=== PATIENT | male | born 1950 | race Caucasian/White ===

== ENCOUNTER 2018-09-15 10:41 | Inpatient (IN) ==
[2018-09-15 11:33] LABS: Basophils # (auto) 0.01 K/uL (0-0.2); Basophils % (auto) 0.1 %; Eosinophils # (auto) 0.07 K/uL (0-0.5); Eosinophils % (auto) 0.8 %; Hemoglobin 13.8 g/dL (14.0-18.0); Immature Granulocytes # (auto) 0.03 K/uL (0.00-0.02); Immature Granulocytes % (auto) 0.3 %; Lymphocytes # (auto) 1.22 K/uL (1.2-3.4); Lymphocytes % (auto) 13.8 %; Mean Corpuscular Hgb Conc 34.5 g/dL (32-36); Mean Corpuscular Volume 85.8 fL (80-100); Mean Platelet Volume 10.3 fL (7.4-10.4); Monocytes # (auto) 0.28 K/uL (0.11-0.59); Monocytes % (auto) 3.2 %; Neutrophils # (auto) 7.23 K/uL (1.4-6.5); Neutrophils % (auto) 81.8 %; Platelet Count 233 K/uL (130-400); RDW Standard Deviation 43.7 fL (36.4-46.3); Red Blood Count 4.66 M/uL (4.7-6.1); White Blood Count 8.84 K/uL (4.8-10.8)
--- NOTE | 2018-09-15 11:47 | XRay Report ---
XR chest 1V portable CLINICAL HISTORY: Dyspnea COMPARISON STUDY: No previous studies for comparison. FINDINGS: The heart is normal in size. There is slight elevation of the interstitium. There are right lower lung zone airspace opacities, likely representing pneumonia. Asymmetric edema could appear sim ilar. Clinical and radiographic follow-up is recommended.[ IMPRESSION: 1. Right lower lung zone airspace opacities, likely representing pneumonia. Asymmetric edema could ap pear similar.. Clinical and radiographic follow-up is recommended. Electronically signed by: Jose Ferguson M.D. 09/15/2018 11:45 AM
[2018-09-15 11:50] LABS: INR 1.1 (0.9-1.1); Partial Thromboplastin Time 26.1 Seconds (21.0-31.0); Prothrombin Time 11.2 Seconds (9.0-12.0)
[2018-09-15 11:54] LABS: Albumin Level 2.9 gm/dl (3.4-5.0); BUN Creatinine Ratio 23.7 (10-20); Calcium 8.6 mg/dl (8.5-10.1); Creatinine Clr Calc Pharmacy 65.7 ml/min; Est GFR (Non-African American) 48.3; Potassium 4.2 mmol/L (3.5-5.1)
[2018-09-15 11:56] LABS: Albumin Globulin Ratio 0.8 (0.9-2); Bilirubin,Total 0.7 mg/dl (0.2-1); Globulin 3.7 gm/dl (2.5-4.0); Total Protein 6.6 gm/dl (6.4-8.2)
[2018-09-15] MEDS ORDERED: VANCOMYCIN HCL 2,750 MG in SODIUM CHLORIDE 0.9% 500 ML IV ONE (12:03)
[2018-09-15] MEDS ORDERED: VANCOMYCIN CONSULT ACTIVE PRN (12:03)
[2018-09-15] MEDS ORDERED: CEFEPIME 1,000 MG in SYRINGE 0 ML IV STA (12:03)
[2018-09-15] MEDS ORDERED: FUROSEMIDE 40 MG/4 ML VIAL IV STA (12:06)
[2018-09-15 12:16] LABS: Troponin I 0.284 ng/ml (0-0.045)
[2018-09-15 12:31] LABS: Influenza A virus by PCR Neg for Influ A (Neg); Influenza B virus by PCR Neg for Influ B (Neg)
[2018-09-15] MEDS ORDERED: ASPIRIN CHEW 324 MG PO STA (12:34)
[2018-09-15] MEDS ORDERED: NITROGLYCERIN 2% OINTMENT 30GM TUBE EXT SCH (12:45)
[2018-09-15 13:25] LABS: Appearance Urine Clear (Clear); Bacteria Urine Automated Negative (Negative); Bilirubin Urine Negative (Negative); Cast Urine Automated 0 /lpf (0-5); Color Urine Yellow; Epithelial Cell Urine Auto 0-5 /lpf (0-5); Glucose Urine UA 2+ (Negative); Ketones Urine Negative (Negative); Leukocyte Esterase Urine Negative (Negative); Nitrite Urine Negative (Negative); Protein Urine 2+ (Negative); Specific Gravity Urine 1.011 (1.000-1.030); Urobilinogen Urine Negative (Negative); WBC Urine Automated 0 /hpf (0-5)
[2018-09-15] MEDS ORDERED: INSULIN GLARGINE SOLOSTAR 100 UNITS/ML 3 ML PEN SC STA (13:50)
--- NOTE | 2018-09-15 13:57 | History & Physical Report ---
Date of Service September 15, 2018 Assessment & Plan (1) Acute respiratory failure with hypoxia: This is a 68-year-old male with a PMH of uncontrolled DM II, CKD III, HTN and HLD who presents for progressively worsening shortness of breath and nonproductive cough x 2 weeks and was found to have acute hypoxia and RLL PNA. -Hypoxic at 87% on room air, now 94% on 2L NC -In the setting of RLL PNA, possible CHF with weight gain, BLE edema and BNP of 4854 -Likely a mixed picture of respiratory and cardiac pathology contributing to hypoxia -Continue antibiotic treatment for PNA and IV Lasix for possible CHF -Follow up on 2D echo -Continue supplemental O2 (2) Right lower lobe pneumonia: Non-productive cough, SOB x 2 weeks -Prescribed doxy, levaquin and prednisone as out-patient -Given dose of Cefepime and vanco in ED -Non-toxic appearing, does not meet criteria for sepsis, no recent hospitalizations -Will continue antibiotic treatment for CAP with Rocephin, Azithromycin -No wheezing or rhonci on exam. Discontinuing prednisone (3) Elevated troponin: Initial troponin elevation of 0.284 in setting of possible demand ischemia , PNA, hypoxia, CKD -No chest pain or acute ischemic changes on EKG -2D echo ordered and reviewed. Per cardio, preliminary review of resting 2D TTE with apical inferoseptal hypokinesis. Findings may be secondary to interventricular conduction delay, however, underlying ischemic heart disease is not excluded. Overall left ventricular systolic function is preserved. -Continue trending troponin overnight. Heparin infusion ordered. -Appreciate cardiology involvement -Continue aspirin, statin, and carvedilol (4) HLD (hyperlipidemia): Continue statin (5) CKD (chronic kidney disease), stage III: Cr trending upwards from 1.1 to 1.4 this year, ? new baseline -Cr of 1.47 today with GFR of 48 -Monitor with daily BMP (6) Diabetes mellitus type II, uncontrolled: Poorly controlled with a1c of 13 in March 2018 -Has been on prednisone at home, contributing to elevated BSG of 327 upon arrival -Hold home medications -Glycemic consult ordered for management, medication recommendations upon discharge (7) HTN (hypertension): Slightly elevated in setting of prednisone use -Continue home Lasix, Carvedilol DVT Ppx: Receiving IV heparin Code status: FULL PCP: Linda Dispo: Admitted to telemetry. Plan to return home once medically stable. Patient seen in collaboration with Dr. Miranda. Please see addendum. History of Present Illness Chief Complaint: Shortness of breath, nonproductive cough Primary Care Provider: John Garsia MD This is a 68-year-old male with a PMH of uncontrolled DM II, CKD III, HTN and HLD who presents for progressively worsening shortness of breath and nonproductive cough x 2 weeks. Initially seen in clinic last week and started on doxycycline and prednisone for complicated bronchitis. Return to clinic on a few days later with continued symptoms and chest x-ray revealed patchy bibasilar opacities may reflect pneumonia or edema. Was started on Levaquin, continued on prednisone and started on Lasix 40 mg p.o. daily as needed. Presents to ER today with worsening dyspnea on exertion and nonproductive cough. Patient is afebrile and denies chills. Was found to be hypoxic at 87% on room air (is not on home O2) but saturation improved to 94% on 2 L nasal cannula. Patient feels like there is congestion in his chest but "cannot cough any mucus up". Denies wheezing or hemoptysis. Has been experiencing fatigue, generalized weakness and orthopnea. Also noted swelling of his ankles and feet starting yesterday, so took dose of 40mg PO Lasix in the evening and then again this morning. Denies any chest pain, palpitations or PND. Per chart review, patient has gained approximately 20 lbs since late July. Echo performed in March 2018 with mildly concentric LVH, EF of 55-59% and mildly abnormal diastolic dysfunction (grade 1). Found to have troponin elevation of 0.284. No acute EKG changes. CXR with R lower lung zone airspace opacities likely PNA. Allergies Allergy/AdvReac Type Severity Reaction Status Date / Time No Known Allergies Allergy Unverified 09/15/18 11:22 Home Medications Home Medications Medication Instructions Recorded Confirmed Type aspirin 81 mg PO HS 09/15/18 09/15/18 History atorvastatin 80 mg PO HS 09/15/18 09/15/18 History benzonatate 100 mg PO TID PRN 09/15/18 09/15/18 History carvedilol 6.25 mg PO BIDM 09/15/18 09/15/18 History cholecalciferol (vitamin D3) 2,000 unit PO HS 09/15/18 09/15/18 History doxycycline hyclate 100 mg PO BID 09/15/18 09/15/18 History furosemide 40 mg PO DAILY PRN 09/15/18 09/15/18 History insulin glargine [Lantus U-100 42 unit SUBCUT HS 09/15/18 09/15/18 History Insulin] levofloxacin 750 mg PO HS 09/15/18 09/15/18 History lisinopril-hydrochlorothiazide 1 tab PO HS 09/15/18 09/15/18 History pioglitazone 30 mg PO HS 09/15/18 09/15/18 History prednisone 40 mg PO DAILY 09/15/18 09/15/18 History Past Med/Surg History Medical History HLD (hyperlipidemia) (Chronic) CKD (chronic kidney disease), stage III (Chronic) Diabetes mellitus type II, uncontrolled (Chronic) HTN (hypertension) (Chronic) Surgical History Hx of tonsillectomy (Resolved) Family History Mother Breast cancer Social History Current Living Situation: Spouse current occupational status: retired Other Information That Helps Us Care for You: No Feels Safe at Home: Yes Smoking Status: Never smoker Do You Dip or Chew Tobacco: No Second Hand Exposure: No Tobacco Cessation Education Requested by Patient: No Hx Alcohol Use: Yes Alcohol Intake Frequency: holidays/special occasions only Hx Substance Use: No Beliefs That Will Affect Care: None Preferred Language: Chilean Communication Ability: Effective Press Reader Required: No Review of Systems Constitutional: + fatigue, + weakness and + weight gain; no fever, no chills, no body aches, no malaise and no anorexia Eyes: no diplopia and no worsening vision Ear, Nose, Mouth, Throat: no ear pain, no dizziness, no nasal congestion, no sinus pain/pressure, no sore throat and no dysphagia Respiratory: + cough, + chest congestion and + dyspnea; no hemoptysis and no wheezing Cardiovascular: + orthopnea; no chest pain, no radiating jaw, neck or arm pain, no palpitations, no lightheadedness, no syncope and no edema Gastrointestinal: no abdominal pain, no nausea, no vomiting, no constipation and no diarrhea/loose stools Genitourinary (Male): no dysuria and no hematuria Musculoskeletal: no joint pain and no muscle weakness Integumentary: no rash, no skin ulcer and no change in skin color Neurologic: no gait abnormality, no localized weakness, no paresthesia, no headache(s) and no confusion Psychiatric: no behavioral changes Physical Exam 2 Vital Signs (Past 24 Hours): Last Vital Signs Temp 36.7 C 09/15/18 10:44 Pulse 80 09/15/18 13:29 Resp 17 09/15/18 13:29 BP 168/99 H 09/15/18 13:29 Pulse Ox 94 09/15/18 13:29 Physical Exam: General Appearance: WD/WN, no apparent distress, morbidly obese, appears acutely ill but non-toxic Head: normocephalic, atraumatic Eyes: normal inspection, PERRL, EOMI ENT: hearing grossly normal, pharynx normal (moist mucous membranes) Neck: supple, no JVD, no adenopathy Respiratory/Chest: Decreased breath sounds bilaterally with faint bibasilar crackles. No wheezes or rhonci. No respiratory distress or accessory muscle use Cardiovascular: regular rate, rhythm, no murmur, normal peripheral pulses, 1-2 + bilateral pitting edema to knees Abdomen/GI: normal bowel sounds, soft, non-tender to palpation Extremities/Musculoskelatal: normal inspection, no calf tenderness, normal capillary refill, no pedal edema Neurologic/Psych: alert, normal mood/affect, oriented x 3 Skin: normal color, warm/dry Results & Data Laboratory Results Short CBC 09/15/18 Range/Units 11:20 WBC 8.84 (4.8-10.8) K/uL Hgb 13.8 L (14.0-18.0) g/dL Hct 40.0 L (42-52) % Plt Count 233 (130-400) K/uL BMP 09/15/18 11:20 Sodium 132 L Potassium 4.2 Chloride 95 L Carbon Dioxide 29 BUN 35 H Creatinine 1.47 H Glucose 327 H Calcium 8.6 Cardiac Enzymes 09/15/18 Range/Units 11:20 Troponin I 0.284 H* (0-0.045) ng/ml Liver Function 09/15/18 Range/Units 11:20 Total Bilirubin 0.7 (0.2-1) mg/dl AST 16 (15-37) U/L ALT 35 (12-78) U/L Alkaline Phosphatase 58 (45-117) U/L Albumin 2.9 L (3.4-5.0) gm/dl Urine 09/15/18 Range/Units 13:00 Urine Color Yellow Urine Appearance Clear (Clear) Urine pH 6.0 (4.5-7.5) Ur Specific Grady 1.011 (1.000-1.030) Urine Protein 2+ H (Negative) Urine Glucose (UA) 2+ H (Negative) Diagnostic Findings CXR: IMPRESSION: 1. Right lower lung zone airspace opacities, likely representing pneumonia. Asymmetric edema could appear similar.. Clinical and radiographic follow-up is recommended. ECG Rhythm: sinus rhythm Findings: + 1st degree AV block Change: no significant change Additional Comments: Septal infarct , age undetermined Code Status & VTE Plan Code Status FULL VTE Prophylaxis Plan VTE Prophylaxis will be ordered: Yes Supervising Physician Co-Signing Physician Notes I have seen and examined the patient and have discussed the case with the provider above. I agree with the assessment and plan as stated. Mr. Lorenzo is an uncontrolled diabetic who not only has bibasilar pneumonia, also has an additional component of hypoxia 2/2 significant weight gain likely a combination of excessive eating, recent prednisone use and acute diastolic heart failure. He has coarse rhonchi on lung exam, no JVD, normal heart exam, a large protuberant abdomen, and 2+ pitting edema bilaterally which he says is much improved today after taking two doses of Lasix at home. Agree with plan to cont Lasix for diuresis in addition to abx to treat pneumonia. Mild troponin elevation but risk factors for heart disease including uncontrolled diabetes. Appreciate Cardiology input. DO Ruben
--- NOTE | 2018-09-15 15:34 | Pharmacy Report ---
Glycemic Control Consultation - Date of Service September 15, 2018 - Scope Scope: Glycemic Pharmacist consulted by TANYA López on 09/15/18 for glycemic control and to write orders per [facility] inpatient glycemic control protocol - Objective Weight: 135.3 kg Accuchecks BSG (last 24hrs): 09/15/18 11:20 Glucose 327 H Laboratory Data (last 24hrs): 09/15/18 11:20 Potassium 4.2 Carbon Dioxide 29 Anion Gap 8.0 Creatinine 1.47 H Est Cr Clr Drug Dosing 65.7 Beta-Hydroxybutyric Acd 1.24 - Recent Pertinent Medications Outpatient Anti-diabetic Regimen: * Lantus 42 units qHS * Pioglitazone 30 mg qHS * A1c = 13 % 03/2018 The patient is currently receiving: * Basal insulin: Lantus 34 units x 1 ordered by Parminder Murillo to be given on admission * Correctional Insulin: Novolog Correction per scale ACHS Goal Range: Low 120 mg/dL - High 160 mg/dL Correction Factor: 10 mg/dL/unit * Prandial insulin: Per carb ratio of 1 unit per 4 grams CHO consumed Risk Factors for Insulin Resistance: * Steroids: unknown if these are to be ordered * Infection: pneumonia - Assessment & Plan Assessment & Plan: ASSESSMENT: * 68 y/o male admitted for pneumonia and uncontrolled type 2 diabetes, admitted with BSGs in the 300s. Ivis Murillo has initiated SQ basal/bolus insulin as per insulin calculator recommendations. Will continue with this, providing a scaled dose for tonight's basal insulin. PLAN FOR INPATIENT GLYCEMIC CONTROL: * Holding outpatient oral diabetes medications * Basal insulin * Lantus BID as per the following scale: * Hold for BSG < 120 * 12 units for BSG 120-160 * 23 units for BSG > 160 * Bolus insulin * NovoLog per scale ACHS or Q6hrs while NPO * Goal Range: Low 120 mg/dL - High 160 mg/dL * Correction Factor: 10 mg/dL/unit * Nutritional / Prandial insulin per carb ratio of 1 unit per 4 grams CHO consumed * A1c w/ AM labs to assess recent outpatient control * Please note that the plan above was derived based on current level of insulin resistance and hospital stress. These recommendations are appropriate for inpatient admission only. Plan of care upon discharge will need to be reassessed to avoid potential outpatient hypo/hyperglycemia. Thank you.
[2018-09-15] MEDS ORDERED: POLYETHYLENE (MIRALAX) 17 GM PACK PO PRN (15:35)
[2018-09-15] MEDS ORDERED: GLUCOSE 40% GEL 15 GM TUBE PO PRN (15:35)
[2018-09-15] MEDS ORDERED: NITROGLYCERIN SL 0.4 MG/TAB TAB SL PRN (15:35)
[2018-09-15] MEDS ORDERED: GLUCAGON FOR INJ 1 MG VIAL SQ PRN (15:35)
[2018-09-15] MEDS ORDERED: DEXTROSE 50% 50 ML SYRINGE IV PRN (15:35)
[2018-09-15] MEDS ORDERED: GLUCOSE 10 TABS/TUBE PO PRN (15:35)
[2018-09-15] MEDS ORDERED: ACETAMINOPHEN 325 MG TAB PO PRN (15:35)
[2018-09-15] MEDS ORDERED: ONDANSETRON INJ 2 MG/ML 2 ML VIAL IV PRN (15:35)
[2018-09-15] MEDS ORDERED: BENZONATATE 100 MG CAPSULE PO PRN (15:35)
[2018-09-15] MEDS ORDERED: CARBOHYDRATES FOR HYPOGLYCEMIA PO PRN (15:35)
[2018-09-15] MEDS ORDERED: PHARMACY GLYCEMIC MGMT CONSULT PRN (15:43)
--- NOTE | 2018-09-15 16:15 | Cardiology Consultation ---
Date of Consultation September 15, 2018 Assessment & Plan (1) Elevated troponin: Preliminary review of resting 2D transthoracic echocardiogram demonstrates apical inferoseptal hypokinesis. Findings may be secondary to interventricular conduction delay, however, underlying ischemic heart disease is not excluded. Overall left ventricular systolic function is preserved. Initial troponins are mildly elevated however, these will be trended x3 sets. There is no overt contraindication to anticoagulation. Will place patient on heparin infusion overnight and continue to monitor closely. Repeat ECG in a.m. Further ischemic evaluation will be required. Troponins also may be related to demand ischemia in the setting of underlying coronary disease and community- acquired pneumonia with hypoxia in setting of CKD. Continue aspirin, statin, and carvedilol. Further recommendations as clinical course unfolds. Thank you for allowing me to participate in the care of your patient. (2) Acute diastolic (congestive) heart failure: Edema improving with diuretic therapy. The left ventricular systolic function preserved per echocardiogram. Recommend continue daily IV Lasix. Add topical nitrates for afterload reduction as patient is hypertensive at this time. Continue carvedilol as previously ordered. (3) Right lower lobe pneumonia: Antibiotics, corticosteroids, nebulizer treatments as per direction of internal medicine. Continue supplemental oxygen. (4) Acute respiratory failure with hypoxia: Secondary to pneumonia. (5) CKD (chronic kidney disease), stage III: Baseline creatinine 1.4. Mildly elevated BUN/creatinine on admission likely secondary to oral diuretic therapy taken in the outpatient setting. (6) HTN (hypertension): Mildly elevating resting BP on admission. Exacerbated by corticosteroid therapy. History of Present Illness Reason for Consultation: Elevated troponin. Possible CHF. Requesting Physician: Ivis Murillo PA-C Attending Physician: Conor Duff MD History of Present Illness 60-year-old patient presented to the emergency department secondary to shortness of breath. Patient diagnosed with bilateral pneumonia approximately 1 week ago. Evaluated by his primary care physician on September 11. Due to significant cough patient was prescribed prednisone in addition to levofloxacin. He did not improve and therefore came to the ER for further evaluation. Found to be hypoxic in the ER. ECG demonstrates sinus rhythm with a nonspecific interventricular conduction block. Troponin and proBNP elevated. Patient describes mild lower extremity edema over the past 7 days. Significant dyspnea on exertion without chest discomfort noted. Reports persistent cough which has improved with addition of corticosteroids. Cough is nonproductive. Notes orthopnea without PND. Appetite has been stable. No fever, chills, or sick contacts. Allergies Allergy/AdvReac Type Severity Reaction Status Date / Time No Known Allergies Allergy Unverified 09/15/18 11:22 Home Medications Home Medications Medication Instructions Recorded Confirmed Type aspirin 81 mg PO HS 09/15/18 09/15/18 History atorvastatin 80 mg PO HS 09/15/18 09/15/18 History benzonatate 100 mg PO TID PRN 09/15/18 09/15/18 History carvedilol 6.25 mg PO BIDM 09/15/18 09/15/18 History cholecalciferol (vitamin D3) 2,000 unit PO HS 09/15/18 09/15/18 History doxycycline hyclate 100 mg PO BID 09/15/18 09/15/18 History furosemide 40 mg PO DAILY PRN 09/15/18 09/15/18 History insulin glargine [Lantus U-100 42 unit SUBCUT HS 09/15/18 09/15/18 History Insulin] levofloxacin 750 mg PO HS 09/15/18 09/15/18 History lisinopril-hydrochlorothiazide 1 tab PO HS 09/15/18 09/15/18 History pioglitazone 30 mg PO HS 09/15/18 09/15/18 History prednisone 40 mg PO DAILY 09/15/18 09/15/18 History Patient History Medical History HLD (hyperlipidemia) (Chronic) CKD (chronic kidney disease), stage III (Chronic) Diabetes mellitus type II, uncontrolled (Chronic) HTN (hypertension) (Chronic) Surgical History Hx of tonsillectomy (Resolved) Family History Mother Breast cancer Social History Current Living Situation: Spouse current occupational status: retired Other Information That Helps Us Care for You: No Feels Safe at Home: Yes Smoking Status: Never smoker Do You Dip or Chew Tobacco: No Second Hand Exposure: No Tobacco Cessation Education Requested by Patient: No Hx Alcohol Use: Yes Alcohol Intake Frequency: holidays/special occasions only Hx Substance Use: No Beliefs That Will Affect Care: None Preferred Language: Syrian Communication Ability: Effective Bogger Operator Required: No Review of Systems Pertinent positives noted per HPI, comprehensive 10 system review is otherwise negative. Physical Exam 2 Vital Signs (Past 24 Hours): Last Vital Signs Temp 36.8 C 09/15/18 15:35 Pulse 78 09/15/18 15:35 Resp 18 09/15/18 15:35 BP 158/75 H 09/15/18 15:35 Pulse Ox 95 09/15/18 15:35 Physical Exam: General: NAD, AAO x3, well nourished. Obese. HEENT: Normocephalic. Atraumatic. Conjunctiva pink, no scleral icterus. Neck: No carotid bruits, the carotid upstrokes are brisk. No JVD. No HJR Heart: Regular normal S-1 and S-2 no S-3 or S-4 gallop. No murmurs or rub appreciated. PMI is not displaced. No RV heave. Lungs: Coarse breath sounds at the left base and mid lung pimentel. No rales or wheeze appreciated. Abdomen: Normal bowel sounds. Soft. Nontender. No masses or organomegaly. No abdominal bruits. Extremities: 1+ B/L pretibial edema. No clubbing, or cyanosis. Pulses: radial= 2/4, Dorsalis pedis =2/4, posterior tibial=2/4. Neuro: Cranial nerves grossly intact. No focal motor deficit. Results & Data Laboratory Results Laboratory Results - last 24 hr 09/15/18 09/15/18 09/15/18 11:20 11:20 11:20 WBC 8.84 RBC 4.66 L Hgb 13.8 L Hct 40.0 L MCV 85.8 MCH 29.6 MCHC 34.5 RDW Std Deviation 43.7 RDW Coeff of Saritha 14.0 Plt Count 233 MPV 10.3 Immature Gran % (Auto) 0.3 Neut % (Auto) 81.8 Lymph % (Auto) 13.8 Carson % (Auto) 3.2 Eos % (Auto) 0.8 Baso % (Auto) 0.1 Immature Gran # (Auto) 0.03 H Neut # (Auto) 7.23 H Lymph # (Auto) 1.22 Carson # (Auto) 0.28 Eos # (Auto) 0.07 Baso # (Auto) 0.01 PT 11.2 INR 1.1 APTT 26.1 PTT Ratio 1.0 Sodium 132 L Potassium 4.2 Chloride 95 L Carbon Dioxide 29 Anion Gap 8.0 BUN 35 H Creatinine 1.47 H Est Cr Clr Drug Dosing 65.7 Est GFR ( Amer) 56.0 Est GFR (Non-Af Amer) 48.3 BUN/Creatinine Ratio 23.7 H Glucose 327 H Calcium 8.6 Total Bilirubin 0.7 AST 16 ALT 35 Alkaline Phosphatase 58 Troponin I 0.284 H* NT-Pro-B Natriuret Pep Total Protein 6.6 Albumin 2.9 L Globulin 3.7 Albumin/Globulin Ratio 0.8 L Beta-Hydroxybutyric Acd 1.24 Urine Color Urine Appearance Urine pH Ur Specific Chase Urine Protein Urine Glucose (UA) Urine Ketones Urine Blood Urine Nitrite Urine Bilirubin Urine Urobilinogen Ur Leukocyte Esterase Urine WBC (Auto) Urine RBC (Auto) U Hyaline Cast (Auto) U Epithel Cells (Auto) Urine Bacteria (Auto) Influenza Type A (PCR) Influenza Type B (PCR) 09/15/18 09/15/18 09/15/18 11:20 11:48 13:00 WBC RBC Hgb Hct MCV MCH MCHC RDW Std Deviation RDW Coeff of Saritha Plt Count MPV Immature Gran % (Auto) Neut % (Auto) Lymph % (Auto) Carson % (Auto) Eos % (Auto) Baso % (Auto) Immature Gran # (Auto) Neut # (Auto) Lymph # (Auto) Carson # (Auto) Eos # (Auto) Baso # (Auto) PT INR APTT PTT Ratio Sodium Potassium Chloride Carbon Dioxide Anion Gap BUN Creatinine Est Cr Clr Drug Dosing Est GFR ( Amer) Est GFR (Non-Af Amer) BUN/Creatinine Ratio Glucose Calcium Total Bilirubin AST ALT Alkaline Phosphatase Troponin I NT-Pro-B Natriuret Pep 4854 H Total Protein Albumin Globulin Albumin/Globulin Ratio Beta-Hydroxybutyric Acd Urine Color Yellow Urine Appearance Clear Urine pH 6.0 Ur Specific Chase 1.011 Urine Protein 2+ H Urine Glucose (UA) 2+ H Urine Ketones Negative Urine Blood Trace H Urine Nitrite Negative Urine Bilirubin Negative Urine Urobilinogen Negative Ur Leukocyte Esterase Negative Urine WBC (Auto) 0 Urine RBC (Auto) 0-4 U Hyaline Cast (Auto) 0 U Epithel Cells (Auto) 0-5 Urine Bacteria (Auto) Negative Influenza Type A (PCR) Neg for Influ A Influenza Type B (PCR) Neg for Influ B
--- NOTE | 2018-09-15 16:33 | Emergency Department Note ---
Entered by Richy Gabriel acting as a scribe for History of Present Illness General Chief complaint: Shortness of Breath/Dyspnea Stated complaint: PNEUMONIA Source: patient Limitations: no limitations History of Present Illness Provider complaint: SOB Onset (ago): week(s) Location: chest (SOB/Cough) Pain Consistency: + constant Quality: + other (SOB) Associated symptoms: + cough and + other (LE swelling); no chest pain Treatments prior to arrival: other (Prednisone, Levaquin, Doxycycline, LASIX ) The patient is a 68 year old male who presents to the Emergency Room with complaints of constant shortness of breath that began about 1 week ago. The patient states that he first developed a cough about 1 week ago, and subsequently became short of breath. He did see his primary care office [facility] about 4 days ago who diagnosed him with Pneumonia. He was discharged home with Levaquin, Doxycycline, and Prednisone. The at bedside notes that he was called back two days later and told that he may have new CHF as well, and he was started on Lasix. The patient adds that he has noticed some unusual swelling to his lower extremities, which seemed to be improved by the Lasix. He denies any associated shortness of breath. Home Medications Home Medications Medication Instructions Recorded Confirmed Type aspirin 81 mg PO HS 09/15/18 09/15/18 History atorvastatin 80 mg PO HS 09/15/18 09/15/18 History benzonatate 100 mg PO TID PRN 09/15/18 09/15/18 History carvedilol 6.25 mg PO BIDM 09/15/18 09/15/18 History cholecalciferol (vitamin D3) 2,000 unit PO HS 09/15/18 09/15/18 History doxycycline hyclate 100 mg PO BID 09/15/18 09/15/18 History furosemide 40 mg PO DAILY PRN 09/15/18 09/15/18 History insulin glargine [Lantus U-100 42 unit SUBCUT 09/15/18 09/15/18 History Insulin] levofloxacin 750 mg PO HS 09/15/18 09/15/18 History lisinopril-hydrochlorothiazide 1 tab PO HS 09/15/18 09/15/18 History pioglitazone 30 mg PO HS 09/15/18 09/15/18 History prednisone 40 mg PO DAILY 09/15/18 09/15/18 History Allergies Allergy/AdvReac Type Severity Reaction Status Date / Time No Known Allergies Allergy Unverified 09/15/18 11:22 Past Med/Surg History Medical History HLD (hyperlipidemia) (Chronic) CKD (chronic kidney disease), stage III (Chronic) Diabetes mellitus type II, uncontrolled (Chronic) HTN (hypertension) (Chronic) Surgical History Hx of tonsillectomy (Resolved) Family History Mother Breast cancer Social History Current Living Situation: Spouse current occupational status: retired Other Information That Helps Us Care for You: No Feels Safe at Home: Yes Smoking Status: Never smoker Do You Dip or Chew Tobacco: No Second Hand Exposure: No Tobacco Cessation Education Requested by Patient: No Hx Alcohol Use: Yes Alcohol Intake Frequency: holidays/special occasions only Hx Substance Use: No Beliefs That Will Affect Care: None Preferred Language: Bulgarian Communication Ability: Effective Tour Guide Required: No Review of Systems See HPI for pertinent positives & negatives. and A total of 10 systems reviewed and were otherwise negative Physical Exam Vital Signs Vital Signs - 24 hr 09/15/18 10:44 09/15/18 11:38 09/15/18 11:42 Temperature 36.7 C Temperature Source Oral Sepsis Recent Fever Within 48 Hours No Sepsis New/Unexplained Change in Mental Status No Sepsis Action Taken by Nursing No Action Required Pulse Rate 86 Pulse Rate [Left Finger] Pulse Rhythm [Left Finger] Pulse Strength [Left Finger] Respiratory Rate 22 Respiratory Effort / Characteristics Respiratory Depth Normal Respiratory Pattern Blood Pressure 217/108 H Blood Pressure [Right Arm] Blood Pressure Mean 144 Blood Pressure Mean [Right Arm] Blood Pressure Position [Right Arm] Pulse Oximetry 92 87 L 93 Pulse Oximetry [Right Index Finger] Oxygen Delivery Method Room Air Room Air Nasal Cannula Oxygen Delivery Method [Right Index Finger] Oxygen Flow Rate 2 Oxygen Flow Rate [Right Index Finger] 09/15/18 12:35 09/15/18 13:29 09/15/18 14:24 Temperature Temperature Source Sepsis Recent Fever Within 48 Hours Sepsis New/Unexplained Change in Mental Status Sepsis Action Taken by Nursing Pulse Rate Pulse Rate [Left Finger] 82 80 79 Pulse Rhythm [Left Finger] Pulse Strength [Left Finger] Respiratory Rate 23 17 19 Respiratory Effort / Characteristics Non-Labored Non-Labored Non-Labored Respiratory Depth Normal Normal Normal Respiratory Pattern Regular Regular Regular Blood Pressure Blood Pressure [Right Arm] 148/99 H 168/99 H 164/98 H Blood Pressure Mean Blood Pressure Mean [Right Arm] 115 122 120 Blood Pressure Position [Right Arm] Pulse Oximetry 91 94 95 Pulse Oximetry [Right Index Finger] Oxygen Delivery Method Nasal Cannula Nasal Cannula Nasal Cannula Oxygen Delivery Method [Right Index Finger] Oxygen Flow Rate 2 2 2 Oxygen Flow Rate [Right Index Finger] 09/15/18 14:35 09/15/18 14:38 09/15/18 15:35 Temperature 36.8 C Temperature Source Oral Sepsis Recent Fever Within 48 Hours Sepsis New/Unexplained Change in Mental Status Sepsis Action Taken by Nursing Pulse Rate 81 Pulse Rate [Left Finger] 78 Pulse Rhythm [Left Finger] Regular Pulse Strength [Left Finger] Normal Respiratory Rate 18 18 Respiratory Effort / Characteristics Spontaneous SOB on Exertion Non-Labored Respiratory Depth Normal Normal Respiratory Pattern Regular Regular Blood Pressure 143/86 H Blood Pressure [Right Arm] 158/75 H Blood Pressure Mean Blood Pressure Mean [Right Arm] 102 Blood Pressure Position [Right Arm] Lying Pulse Oximetry 93 Pulse Oximetry [Right Index Finger] 95 Oxygen Delivery Method Nasal Cannula Nasal Cannula Oxygen Delivery Method [Right Index Finger] Nasal Cannula Oxygen Flow Rate 2 2 Oxygen Flow Rate [Right Index Finger] 2 GENERAL: Sitting up in bed, alert, dyspneic with conversation. Persistent cough noted. EYE EXAM: normal conjunctiva. OROPHARYNX: no exudate, no erythema, lips, buccal mucosa, and tongue normal and mucous membranes are moist NECK: supple, no nuchal rigidity, no adenopathy, non-tender LUNGS: Diffuse rhonchi bilaterally. Normal chest wall mechanics. No JVD. HEART: no murmurs, S1 normal and S2 normal ABDOMEN: abdomen soft, non-tender, normo-active bowel, sounds, no masses, no rebound or guarding. BACK: Back is symmetrical on inspection and there is no deformity, no midline tenderness, no CVA tenderness. SKIN: no rashes and no bruising UPPER EXTREMITIES: upper extremities are grossly normal. LOWER EXTREMITIES: Calves are equal bilaterally with pitting edema. NEURO EXAM: Normal sensorium, cranial nerves II-XII grossly intact, normal speech, no gross weakness of arms, no gross weakness of legs. Course ED COURSE: Vital signs were reviewed and showed Hypertensive blood pressure. The patients medical record was reviewed The above diagnostic studies were performed and reviewed. ED treatments and interventions as stated above. 1058: The patient was evaluated in room C5. A complete history and physical examination was performed. 1229: I discussed with Dr. Robins - Cardiology. He suggests treating the symptoms as infection. 1241: I reviewed the patient's case with [facility] . She will evaluate the patient for further management. 1245: Upon reevaluation, the patient is resting in bed. I discussed my findings with the patient and she understands and agrees with the treatment plan. Based on the patients age, coexisting illnesses, exam and lab findings the decision to treat as an inpatient was made. The patient remained stable while under my care. The patient will be evaluated for further management. Administered Medications Discontinued Medications Aspirin (Aspirin) 324 mg PO NOW STA Stop: 09/15/18 12:35 Last Admin: 09/15/18 13:27 Dose: 324 mg Furosemide (Lasix) 40 mg IV NOW STA Stop: 09/15/18 12:07 Last Admin: 09/15/18 12:35 Dose: 40 mg Cefepime HCl 1,000 mg/ Syringe 11.3 mls @ 5.5 mls/min IV NOW STA Stop: 09/15/18 12:05 Last Admin: 09/15/18 12:35 Dose: 5.5 mls/min Vancomycin HCl 2,750 mg/ (Sodium Chloride) 555 mls @ 200 mls/hr IV NOW ONE Stop: 09/15/18 14:49 Last Admin: 09/15/18 12:35 Dose: 200 mls/hr Insulin Glargine (Lantus Solostar Pen) 34 units SC NOW STA Stop: 09/15/18 13:51 Last Admin: 09/15/18 15:55 Dose: 34 units Nitroglycerin (Nitro-Bid 2%) 2 inch EXT Q6H GALO Stop: 10/15/18 12:44 Last Admin: 09/15/18 13:28 Dose: Not Given Medical Decision Making Differential Diagnosis Differential diagnosis: Etiologies such as infections, reactive airway disease, COPD, pneumonia, pleural effusion, pulmonary edema, ARDS, pneumothorax, CHF, cardiac ischemia, cardiac tamponade, dysrhythmia, anemia, pulmonary embolism, musculoskeletal, gastrointestinal process, as well as others were entertained. Medical Records Attestation: I reviewed the patient's medical records. Home Medications Current Medication List: was personally reviewed by me Laboratory Data Attestation: I reviewed the patient's lab results. Result diagrams: 09/15/18 11:20 09/15/18 11:20 Lab Results 09/15/18 09/15/18 09/15/18 Range/Units 11:20 11:20 11:20 WBC 8.84 (4.8-10.8) K/uL RBC 4.66 L (4.7-6.1) M/uL Hgb 13.8 L (14.0-18.0) g/dL Hct 40.0 L (42-52) % MCV 85.8 (80-100) fL MCH 29.6 (25-34) pg MCHC 34.5 (32-36) g/dL RDW Std Deviation 43.7 (36.4-46.3) fL RDW Coeff of Saritha 14.0 (11.5-14.5) % Plt Count 233 (130-400) K/uL MPV 10.3 (7.4-10.4) fL Immature Gran % (Auto) 0.3 % Neut % (Auto) 81.8 % Lymph % (Auto) 13.8 % Worth % (Auto) 3.2 % Eos % (Auto) 0.8 % Baso % (Auto) 0.1 % Immature Gran # (Auto) 0.03 H (0.00-0.02) K/uL Neut # (Auto) 7.23 H (1.4-6.5) K/uL Lymph # (Auto) 1.22 (1.2-3.4) K/uL Worth # (Auto) 0.28 (0.11-0.59) K/uL Eos # (Auto) 0.07 (0-0.5) K/uL Baso # (Auto) 0.01 (0-0.2) K/uL PT 11.2 (9.0-12.0) Seconds INR 1.1 (0.9-1.1) APTT 26.1 (21.0-31.0) Seconds PTT Ratio 1.0 Sodium 132 L (136-145) mmol/L Potassium 4.2 (3.5-5.1) mmol/L Chloride 95 L (98-107) mmol/L Carbon Dioxide 29 (21-32) mmol/L Anion Gap 8.0 (3-11) BUN 35 H (7-18) mg/dl Creatinine 1.47 H (0.6-1.4) mg/dl Est Cr Clr Drug Dosing 65.7 ml/min Est GFR ( Amer) 56.0 Est GFR (Non-Af Amer) 48.3 BUN/Creatinine Ratio 23.7 H (10-20) Glucose 327 H (70-99) mg/dl Calcium 8.6 (8.5-10.1) mg/dl Total Bilirubin 0.7 (0.2-1) mg/dl AST 16 (15-37) U/L ALT 35 (12-78) U/L Alkaline Phosphatase 58 (45-117) U/L Troponin I 0.284 H* (0-0.045) ng/ml NT-Pro-B Natriuret Pep (0-900) pg/ml Total Protein 6.6 (6.4-8.2) gm/dl Albumin 2.9 L (3.4-5.0) gm/dl Globulin 3.7 (2.5-4.0) gm/dl Albumin/Globulin Ratio 0.8 L (0.9-2) Beta-Hydroxybutyric Acd 1.24 (0.2-2.81) mg/dl Urine Color Urine Appearance (Clear) Urine pH (4.5-7.5) Ur Specific [place] (1.000-1.030) Urine Protein (Negative) Urine Glucose (UA) (Negative) Urine Ketones (Negative) Urine Blood (Negative) Urine Nitrite (Negative) Urine Bilirubin (Negative) Urine Urobilinogen (Negative) Ur Leukocyte Esterase (Negative) Urine WBC (Auto) (0-5) /hpf Urine RBC (Auto) (0-4) /hpf U Hyaline Cast (Auto) (0-5) /lpf U Epithel Cells (Auto) (0-5) /lpf Urine Bacteria (Auto) (Negative) Influenza Type A (PCR) (Neg) Influenza Type B (PCR) (Neg) 09/15/18 09/15/18 09/15/18 Range/Units 11:20 11:48 13:00 WBC (4.8-10.8) K/uL RBC (4.7-6.1) M/uL Hgb (14.0-18.0) g/dL Hct (42-52) % MCV (80-100) fL MCH (25-34) pg MCHC (32-36) g/dL RDW Std Deviation (36.4-46.3) fL RDW Coeff of Saritha (11.5-14.5) % Plt Count (130-400) K/uL MPV (7.4-10.4) fL Immature Gran % (Auto) % Neut % (Auto) % Lymph % (Auto) % Worth % (Auto) % Eos % (Auto) % Baso % (Auto) % Immature Gran # (Auto) (0.00-0.02) K/uL Neut # (Auto) (1.4-6.5) K/uL Lymph # (Auto) (1.2-3.4) K/uL Worth # (Auto) (0.11-0.59) K/uL Eos # (Auto) (0-0.5) K/uL Baso # (Auto) (0-0.2) K/uL PT (9.0-12.0) Seconds INR (0.9-1.1) APTT (21.0-31.0) Seconds PTT Ratio Sodium (136-145) mmol/L Potassium (3.5-5.1) mmol/L Chloride (98-107) mmol/L Carbon Dioxide (21-32) mmol/L Anion Gap (3-11) BUN (7-18) mg/dl Creatinine (0.6-1.4) mg/dl Est Cr Clr Drug Dosing ml/min Est GFR ( Amer) Est GFR (Non-Af Amer) BUN/Creatinine Ratio (10-20) Glucose (70-99) mg/dl Calcium (8.5-10.1) mg/dl Total Bilirubin (0.2-1) mg/dl AST (15-37) U/L ALT (12-78) U/L Alkaline Phosphatase (45-117) U/L Troponin I (0-0.045) ng/ml NT-Pro-B Natriuret Pep 4854 H (0-900) pg/ml Total Protein (6.4-8.2) gm/dl Albumin (3.4-5.0) gm/dl Globulin (2.5-4.0) gm/dl Albumin/Globulin Ratio (0.9-2) Beta-Hydroxybutyric Acd (0.2-2.81) mg/dl Urine Color Yellow Urine Appearance Clear (Clear) Urine pH 6.0 (4.5-7.5) Ur Specific [place] 1.011 (1.000-1.030) Urine Protein 2+ H (Negative) Urine Glucose (UA) 2+ H (Negative) Urine Ketones Negative (Negative) Urine Blood Trace H (Negative) Urine Nitrite Negative (Negative) Urine Bilirubin Negative (Negative) Urine Urobilinogen Negative (Negative) Ur Leukocyte Esterase Negative (Negative) Urine WBC (Auto) 0 (0-5) /hpf Urine RBC (Auto) 0-4 (0-4) /hpf U Hyaline Cast (Auto) 0 (0-5) /lpf U Epithel Cells (Auto) 0-5 (0-5) /lpf Urine Bacteria (Auto) Negative (Negative) Influenza Type A (PCR) Neg for Influ A (Neg) Influenza Type B (PCR) Neg for Influ B (Neg) Imaging Data Attestation: I personally reviewed and interpreted this imaging study as follows : Radiologist's Impression: XR chest 1V portable CLINICAL HISTORY: Dyspnea COMPARISON STUDY: No previous studies for comparison. FINDINGS: The heart is normal in size. There is slight elevation of the interstitium. There are right lower lung zone airspace opacities, likely representing pneumonia. Asymmetric edema could appear similar. Clinical and radiographic follow-up is recommended.[ IMPRESSION: 1. Right lower lung zone airspace opacities, likely representing pneumonia. Asymmetric edema could appear similar.. Clinical and radiographic follow-up is recommended. Electronically signed by: Jose Ferguson M.D. 09/15/2018 11:45 AM ECG Data Attestation: I personally reviewed and interpreted this ECG as follows: Indication: SOB/dyspnea Rate (beats per minute): 85 Rhythm: sinus rhythm Findings: + other (ST-wave flattening in the high lateral), + 1st degree AV block, + PAC and + Q waves (Septal) Comparison ECG Date: from (02/26/2008) Change: the following changes noted (Q-waves and ST-flattening are new. ) Blood Pressure Blood Pressure Findings: Elevated blood pressure Blood Pressure Disposition: further management by hospitalist DAVINA Narrative Patient is a 68-year-old male who presents the ER for shortness of breath which is been worsening over the past week associated with swelling in his bilateral lower extremities. He was seen by his PCP placed on doxycycline and Levaquin along with steroids. He was also recently started on Lasix due to swelling. Patient was found to be hypoxic at 87% in the ER. He was placed on 2 L nasal cannula. EKG was obtained and showed new septal Q waves along with some slight elevation in V2 along with depressions in high lateral leads. This was discussed with cardiology who reviewed this EKG along with previous. They recommend to continue current treatment at this time. CBC shows no significant leukocytosis or anemia. INR was unremarkable. White creatinine was 1.4 and BMP was otherwise unremarkable. Troponin was detectable at 0.28. BNP was elevated at 5000. UA was unremarkable. Chest x-ray with infiltrate. Patient was updated at bedside and admitted to the hospitalist following vancomycin and cefepime with the chest x-ray showing the right lower lobe infiltrate. Patient was given aspirin as well. Patient was monitored closely while in the ER did feel better while on nasal cannula. Impression & Plan Pneumonia, Hypoxia, Elevated troponin Discharge Plan Visit Data *Final* Discharge Date/Time: 09/15/18 14:38 Chief Complaint: Shortness of Breath/Dyspnea Stated Complaint: PNEUMONIA ED Provider: Brown Guthrie Discharge Problem: Pneumonia, Hypoxia, Elevated troponin Patient Disposition: Admitted As Inpatient Discharge Instructions Interventions: ED Discharge Assessment Last Done: 09/15/18 14:38 The scribe's documentation has been prepared under my direction and personally reviewed by me in its entirety. I confirm that the note above accurately reflects all work, treatment, procedures, and medical decision making performed by me.
[2018-09-15] MEDS: AZITHROMYCIN 500 MG in DEXTROSE 5% 250 ML IV SCH (17:15)
[2018-09-15] MEDS: CARVEDILOL 6.25 MG TAB PO SCH (17:15)
[2018-09-15] MEDS: INSULIN ASPART 100 UNITS/ML 3 ML PEN SC SCH ×2 (17:17→20:43)
[2018-09-15] MEDS: NITROGLYCERIN 2% OINTMENT 30GM TUBE EXT SCH (17:26)
[2018-09-15] MEDS: HEPARIN STANDARD DEXTROSE 25,000 UNITS/500 ML IV SCH (17:26)
[2018-09-15] MEDS ORDERED: HEPARIN IV BOLUS 8,000 UNITS in SYRINGE 0 ML IV ONE (17:30)
[2018-09-15] MEDS: cefTRIAXone SODIUM 2,000 MG in DEXTROSE 5% 50 ML IV SCH (19:34)
[2018-09-15] MEDS: INSULIN GLARGINE SOLOSTAR 100 UNITS/ML 3 ML PEN SC SCH (20:44)
[2018-09-15] MEDS: ATORVASTATIN 40 MG TAB PO SCH (20:45)
[2018-09-15] MEDS: CHOLECALCIFEROL 1,000 UNITS TAB PO SCH (20:45)
[2018-09-15] MEDS ORDERED: LISINOPRIL/HCTZ 20/25MG 1 TAB PO SCH (21:00)
[2018-09-15 23:54] LABS: Partial Thromboplastin Ratio 4.2
[2018-09-16 00:02] LABS: Partial Thromboplastin Time 109.2 Seconds (21.0-31.0)
[2018-09-16] MEDS: NITROGLYCERIN 2% OINTMENT 30GM TUBE EXT SCH ×4 (00:07→17:23)
[2018-09-16 07:09] LABS: Hematocrit (blood only) 37.8 % (42-52); Hemoglobin 12.9 g/dL (14.0-18.0); Mean Corpuscular Hgb Conc 34.1 g/dL (32-36); Mean Corpuscular Volume 86.1 fL (80-100); Mean Platelet Volume 10.5 fL (7.4-10.4); Platelet Count 221 K/uL (130-400); RDW Coefficient of Variation 14.1 % (11.5-14.5); RDW Standard Deviation 44.1 fL (36.4-46.3); Red Blood Count 4.39 M/uL (4.7-6.1); White Blood Count 9.86 K/uL (4.8-10.8)
[2018-09-16 07:29] LABS: Estimated Average Glucose 217 mg/dl
[2018-09-16 07:32] LABS: Partial Thromboplastin Ratio 2.9
[2018-09-16 07:41] LABS: Partial Thromboplastin Time 76.5 Seconds (21.0-31.0)
[2018-09-16 07:50] LABS: BUN Creatinine Ratio 22.6 (10-20); Calcium 8.4 mg/dl (8.5-10.1); Creatinine Clr Calc Pharmacy 60.7 ml/min; Est GFR (African American) 50.9; Potassium 3.2 mmol/L (3.5-5.1)
[2018-09-16] MEDS: INSULIN ASPART 100 UNITS/ML 3 ML PEN SC SCH ×4 (08:05→21:33)
[2018-09-16] MEDS: CARVEDILOL 6.25 MG TAB PO SCH ×2 (08:07→16:29)
[2018-09-16] MEDS: INSULIN GLARGINE SOLOSTAR 100 UNITS/ML 3 ML PEN SC SCH ×2 (08:07→21:32)
[2018-09-16] MEDS ORDERED: FUROSEMIDE 40 MG in SYRINGE 0 ML IV SCH (09:00)
[2018-09-16] MEDS ORDERED: FUROSEMIDE 40 MG/4 ML VIAL IV SCH (09:00)
[2018-09-16] MEDS ORDERED: POTASSIUM CHLORIDE 10 MEQ TABCR PO STA (10:02)
--- NOTE | 2018-09-16 10:03 | Cardiology Progress Note ---
Date of Service September 16, 2018 Assessment & Plan (1) Elevated troponin: Secondary to demand ischemia in the setting of pneumonia, hypoxia, and decompensated diastolic heart failure. Recent acute coronary syndrome not excluded.continue intravenous heparin, aspirin, statin, and carvedilol as previously ordered. Further ischemic evaluation is indicated. The risks, benefits, alternatives to cardiac catheterization with coronary angiography were discussed with the patient at length. He is agreeable. We will tentatively plan for cardiac catheterization tomorrow pending review of a.m. lab studies. If renal function is at baseline will proceed otherwise may postpone until Friday. Lasix will be placed on hold today. (2) Acute diastolic (congestive) heart failure: Clinically improved. Creatinine trending upward. Will place intravenous Lasix on hold with repeat basic metabolic panel in a.m. (3) Right lower lobe pneumonia: Antibiotics, corticosteroids, nebulizer treatments as per direction of internal medicine. Continue supplemental oxygen. (4) Acute respiratory failure with hypoxia: Secondary to pneumonia. (5) CKD (chronic kidney disease), stage III: Baseline creatinine 1.4. Creatinine trending upward with IV diuretic therapy. Repeat in a.m. (6) HTN (hypertension): Mildly elevating resting BP on admission. Improved today with addition of diuretic therapy and topical nitrates. Exacerbated by corticosteroid therapy. Subjective Patient seen and examined at the bedside. Feeling much better from a respiratory perspective. Orthopnea has resolved. Fluid balance negative approximately 1100 cc. Creatinine trending upward. Nonproductive cough unchanged. Denies palpitations, chest discomfort, lightheadedness, dizziness, syncope, or near syncope. Tolerating medications. Notes mild diuresis after Lasix this a.m. Offers no concerns/complaints at this time. Review of Systems All systems reviewed & are unremarkable except as noted in HPI & below Physical Exam 2 Vital Signs (Past 24 Hours): Last Vital Signs Temp 37.0 C 09/16/18 07:43 Pulse 74 09/16/18 07:43 Resp 20 09/16/18 07:43 BP 129/82 09/16/18 07:43 Pulse Ox 93 09/16/18 07:43 Physical Exam: General: NAD, AAO x3, well nourished. HEENT: Normocephalic. Atraumatic. Conjunctiva pink, no scleral icterus. Neck: No carotid bruits, the carotid upstrokes are brisk. No JVD. No HJR Heart: Regular normal S-1 and S-2 no S-3 or S-4 gallop. No murmurs or rub appreciated. PMI is not displaced. No RV heave. Lungs: Clear bilateral without rales , rhonchi, or wheeze. Abdomen: Normal bowel sounds. Soft. Nontender. No masses or organomegaly. No abdominal bruits. Extremities: No clubbing, cyanosis, or edema. Pulses: radial=2/4, Dorsalis pedis =2/4, posterior tibial=2/4. Neuro: Cranial nerves grossly intact. No focal motor deficit.
[2018-09-16] MEDS: HEPARIN STANDARD DEXTROSE 25,000 UNITS/500 ML IV SCH (10:49)
--- NOTE | 2018-09-16 13:00 | Hospitalist Progress Note ---
Date of Service September 16, 2018 Assessment & Plan (1) Acute respiratory failure with hypoxia: This is a 68-year-old male with a PMH of uncontrolled DM II, CKD III, HTN and HLD who presents for progressively worsening shortness of breath and nonproductive cough x 2 weeks and was found to have acute hypoxia and RLL PNA. -Hypoxic at 87% on room air, now intermittently requiring 2L NC to maintain O2 sat >92% -In the setting of RLL PNA, decompensated diastolic HF -Continue supplemental O2 as needed (2) Elevated troponin: Troponin elevation peaked at 0.379, now down trending with most recent of 0.236 -Demand ischemia in setting of hypoxia, PNA and decompensated diastolic heart failure -No chest pain. Possible lateral ischemic changes on EKG today -Echo (09/15/29) with EF of 55-60%. Mild concentric LVH. Apical inferoseptum is kypokinetic. Mild anteroseptum appears mildly hypokinetic in limited views. -Per cardiology, recent ACS not excluded. Continue IV heparin, aspirin, statin, and carvedilol as previously ordered -Plan for cardiac catheterization tomorrow pending review of a.m. lab studies. If renal function is at baseline will proceed otherwise may postpone until Friday -Lasix will be placed on hold today (3) Right lower lobe pneumonia: Non-productive cough, SOB x 2 weeks -Prescribed doxy, levaquin and prednisone as out-patient -Given dose of Cefepime and vanco in ED -Clinically improving -Will continue antibiotic treatment for CAP with Rocephin, Azithromycin (4) Acute diastolic (congestive) heart failure: Clinically improved today -Net I&Os -1.1L overnight -Will hold Lasix due to up trending creatinine -Continue [employer] diet, daily weights, strict I&Os -Repeat BMP in AM (5) HLD (hyperlipidemia): Continue statin (6) CKD (chronic kidney disease), stage III: Cr of 1.59 today (from 1.47 yesterday) -Hold IV lasix today -Monitor with daily BMP (7) Diabetes mellitus type II, uncontrolled: Repeat a1c of 9.2 today -Hold home medications -Glycemic consult ordered for management, medication recommendations upon discharge (8) HTN (hypertension): Slightly elevated in setting of prednisone use -Continue home Lasix, Carvedilol DVT Ppx: Receiving IV heparin Code status: FULL PCP: Linda Dispo: Admitted to telemetry. Plan to return home once medically stable. Patient seen in collaboration with Dr. Miranda. Please see addendum. Supervising Physician Co-Signing Physician Notes Patient seen in his room. Care coordinated with Ivis Murillo PA-C. Pt feels better. Cough, dyspnea improved. No chest pain. Exam- lungs clear, heart RRR without gallop, extremities 2+ pretibial edema. Unclear whether or not pt had pneumonia- he had a cough, but no fever or leukocytosis. Troponins elevated. Echo showed regional wall motion abnormalities with LVEF 55-60%. Cardiology consulted; cath under consideration. Check BNP and procalcitonin with morning labs. Subjective Seen and examined. Feeling better today. Shortness of breath, orthopnea and lower extremity swelling improved. Saturating at 92% on room air during exam. Denies lightheadedness, chest pain, palpitations or shortness of breath. Fluid balance -1.1 L. Physical Exam 2 Vital Signs (Past 24 Hours): Last Vital Signs Temp 36.5 C 09/16/18 11:16 Pulse 56 L 09/16/18 11:46 Resp 21 09/16/18 11:46 BP 162/50 H 09/16/18 11:46 Pulse Ox 100 09/16/18 11:46 Physical Exam: General Appearance: WD/WN, no apparent distress. Sitting on side of bed, O2 saturation of 92% on room air. Head: normocephalic, atraumatic Eyes: normal inspection, PERRL, EOMI ENT: hearing grossly normal, pharynx normal (moist mucous membranes) Neck: supple, no JVD, no adenopathy Respiratory/Chest: Coarse breath sounds RLL. No wheezes, rales or rhonci. No respiratory distress or accessory muscle use Cardiovascular: regular rate, rhythm, no murmur, normal peripheral pulses, 1+ BLE to knees Abdomen/GI: normal bowel sounds, soft, non-tender to palpation Extremities/Musculoskelatal: normal inspection, no calf tenderness, normal capillary refill, no pedal edema Neurologic/Psych: alert, normal mood/affect, oriented x 3 Skin: normal color, warm/dry Results & Data Laboratory Results Short CBC 09/16/18 Range/Units 06:59 WBC 9.86 (4.8-10.8) K/uL Hgb 12.9 L (14.0-18.0) g/dL Hct 37.8 L (42-52) % Plt Count 221 (130-400) K/uL BMP 09/16/18 06:59 Sodium 137 Potassium 3.2 L D Chloride 98 Carbon Dioxide 32 BUN 36 H Creatinine 1.59 H Glucose 86 Calcium 8.4 L Cardiac Enzymes 09/15/18 09/15/18 09/16/18 Range/Units 17:13 23:15 09:17 Troponin I 0.321 H* 0.379 H* 0.236 H* (0-0.045) ng/ml Urine 09/15/18 Range/Units 13:00 Urine Color Yellow Urine Appearance Clear (Clear) Urine pH 6.0 (4.5-7.5) Ur Specific [place] 1.011 (1.000-1.030) Urine Protein 2+ H (Negative) Urine Glucose (UA) 2+ H (Negative) Diagnostic Findings Echo (09/15/17): EF of 55-60%. Mild concentric LVH. Apical inferoseptum is kypokinetic. Mild anteroseptum appears mildly hypokinetic in limited views. Aortic root is mildly enlarged, 4.3 cm.
[2018-09-16] MEDS ORDERED: POTASSIUM CHLORIDE 20 MEQ TABCR PO ONE (13:43)
--- NOTE | 2018-09-16 13:45 | Pharmacy Report ---
Pharmacy Glycemic Short Note 2 - Date of Service September 16, 2018 - Glycemic Short BSG Results (Last 24 hours): 09/15/18 09/15/18 09/16/18 16:52 20:13 06:59 Glucose 86 POC Glucose 295 H 103 H 09/16/18 09/16/18 07:04 11:15 Glucose POC Glucose 94 102 H OUTPATIENT ANTIDIABETIC REGIMEN: * Lantus 42 units HS, Pioglitazone 30 mg HS * A1c 9.2% 09/16/18 ASSESSMENT: * Patient's A1c improved to 9.2% from 13% in March * Fasting this AM was 94, below goal range- will continue current scale- maximum dose is a 30% reduction from yesterday's dose * Correction last night from 295 to 103 with previous parameters- will loosen PLAN FOR INPATIENT GLYCEMIC CONTROL: * Hold outpatient oral diabetes medications * Basal insulin * Lantus Scale * hold for bsg <110 * 12 units for BSG 110-160 * 23 units for BSG >160 * Bolus insulin - loosen * NovoLog per scale ACHS or Q6hrs while NPO * Goal Range: Low 120 mg/dL - High 160 mg/dL * Correction Factor: 15 mg/dL/unit * Nutritional / Prandial insulin per carb ratio of 1 unit per 5 grams CHO consumed PLAN FOR DISCHARGE: * Patient has history of heart failure and is currently on pioglitazone. Recommend discontinuation of pioglitazone, as TZDs can cause or exacerbate congestive heart failure, and incidence associated pioglitazone is higher in patients receiving concomitant insulin therapy and patient's older than 65. * A1c has improved to 9.2%, patient may benefit from addition of rapid acting insulin with meals/correctional insulin
[2018-09-16 14:26] LABS: Partial Thromboplastin Ratio 2.3
[2018-09-16 14:34] LABS: Partial Thromboplastin Time 60.4 Seconds (21.0-31.0)
[2018-09-16] MEDS: AZITHROMYCIN 500 MG in DEXTROSE 5% 250 ML IV SCH (16:28)
[2018-09-16] MEDS: cefTRIAXone SODIUM 2,000 MG in DEXTROSE 5% 50 ML IV SCH (21:28)
[2018-09-16] MEDS: ASPIRIN 81 MG ECTAB PO SCH (21:30)
[2018-09-16] MEDS: CHOLECALCIFEROL 1,000 UNITS TAB PO SCH (21:31)
[2018-09-16] MEDS: ATORVASTATIN 40 MG TAB PO SCH (21:31)
[2018-09-17] MEDS: NITROGLYCERIN 2% OINTMENT 30GM TUBE EXT SCH ×5 (00:23→23:50)
[2018-09-17] MEDS: HEPARIN STANDARD DEXTROSE 25,000 UNITS/500 ML IV SCH ×2 (04:08→21:57)
[2018-09-17 04:58] LABS: Hematocrit (blood only) 40.7 % (42-52); Hemoglobin 13.6 g/dL (14.0-18.0); Mean Corpuscular Hgb Conc 33.4 g/dL (32-36); Mean Platelet Volume 10.1 fL (7.4-10.4); Platelet Count 229 K/uL (130-400); RDW Coefficient of Variation 14.4 % (11.5-14.5); RDW Standard Deviation 45.6 fL (36.4-46.3); Red Blood Count 4.68 M/uL (4.7-6.1); White Blood Count 7.58 K/uL (4.8-10.8)
[2018-09-17 05:14] LABS: Partial Thromboplastin Ratio 2.3
[2018-09-17 05:22] LABS: Partial Thromboplastin Time 59.7 Seconds (21.0-31.0)
[2018-09-17 05:52] LABS: BUN Creatinine Ratio 24.4 (10-20); Calcium 8.7 mg/dl (8.5-10.1); Creatinine Clr Calc Pharmacy 60.8 ml/min; Est GFR (African American) 52.5; Est GFR (Non-African American) 45.3; Potassium 3.7 mmol/L (3.5-5.1)
[2018-09-17] MEDS: INSULIN ASPART 100 UNITS/ML 3 ML PEN SC SCH ×4 (08:54→20:42)
--- NOTE | 2018-09-17 09:10 | Hospitalist Progress Note ---
Date of Service September 17, 2018 Assessment & Plan (1) Acute respiratory failure with hypoxia: This is a 68-year-old male with a PMH of uncontrolled DM II, CKD III, HTN and HLD who presents for progressively worsening shortness of breath and nonproductive cough x 2 weeks and was found to have acute hypoxia in the setting of decompensated diastolic heart failure and RLL PNA. -Hypoxia has resolved. Now saturating at 97% on room air -In the setting of RLL PNA, decompensated diastolic HF (2) Elevated troponin: Troponin elevation peaked at 0.379, now down trending -Demand ischemia in setting of hypoxia, PNA and decompensated diastolic heart failure -Echo (09/15/29) with EF of 55-60%. Mild concentric LVH. Apical inferoseptum is kypokinetic. Mild anteroseptum appears mildly hypokinetic in limited views. -Per cardiology, recent ACS not excluded. Continue IV heparin, aspirin, statin, and carvedilol as previously ordered -Will hold off on cardiac catheterization today due to kidney function. Planned for tomorrow pending review of BMP (3) Right lower lobe pneumonia: Non-productive cough, SOB resolving -Likely cardiovascular > respiratory pathology contributing to SOB that has now improved -BNP down trending from 4800 to 1100, procalcitonin negative -Discontinued Rocephin but will continue Azithromycin for now (4) Acute diastolic (congestive) heart failure: Clinically improved -Received IV Lasix dose yesterday morning but will hold today due to elevated creatinine -Continue heart health diet, daily weights, strict I&Os -Repeat BMP in AM (5) HLD (hyperlipidemia): Continue statin (6) CKD (chronic kidney disease), stage III: Slightly elevated from baseline with Cr of 1.55 today (baseline ~1.4) -Hold IV lasix today -Monitor with daily BMP (7) Diabetes mellitus type II, uncontrolled: Repeat a1c of 9.2 -Hold home medications -Glycemic consult ordered for management, medication recommendations upon discharge (8) HTN (hypertension): Holding lisinopril/hctz with worsened kidney function -Continue Carvedilol, NTG paste PRN DVT Ppx: Receiving IV heparin Code status: FULL PCP: Linda Dispo: Admitted to telemetry. Plan to return home once medically stable. Patient seen in collaboration with Dr. Duff. Please see addendum. Supervising Physician Co-Signing Physician Notes Patient seen in his room this morning around 0950. Care coordinated with Ivis Murillo PA-C. Pt feels better. Cough, dyspnea improved. No fever. No chest pain. Exam- lungs clear, heart RRR without gallop, extremities 1-2+ pretibial edema. Unclear whether or not pt had pneumonia- he had a cough, but no fever or leukocytosis. Procalcitonin normal. Troponins elevated. BNP elevated. Echo showed regional wall motion abnormalities with LVEF 55-60%. Cardiology consulted. Possible cardiac cath during this hospital stay. Subjective Seen and examined. Feeling better today. No longer experiencing shortness of breath. Not requiring supplemental O2. Saturating at 97% on room air. Denies lightheadedness, chest pain, palpitations or shortness of breath. Still experiencing dry cough. Respiratory: + cough and + dyspnea; no chest congestion, no hemoptysis and no wheezing Physical Exam 2 Vital Signs (Past 24 Hours): Last Vital Signs Temp 36.6 C 09/17/18 06:58 Pulse 64 09/17/18 06:58 Resp 15 09/17/18 06:58 BP 141/78 H 09/17/18 06:58 Pulse Ox 97 09/17/18 06:58 Physical Exam: General Appearance: WD/WN, no apparent distress, pleasant Head: normocephalic, atraumatic Eyes: normal inspection, PERRL, EOMI ENT: hearing grossly normal, pharynx normal (moist mucous membranes) Neck: supple, no JVD, no adenopathy Respiratory/Chest: Coarse breath sounds at R lung base. Otherwise clear. No wheezes, rales or rhonci. No respiratory distress or accessory muscle use Cardiovascular: regular rate, rhythm, no murmur, normal peripheral pulses, trace BLE edema Abdomen/GI: normal bowel sounds, soft, non-tender to palpation Extremities/Musculoskelatal: normal inspection, no calf tenderness, normal capillary refill, no pedal edema Neurologic/Psych: alert, normal mood/affect, oriented x 3 Skin: normal color, warm/dry, Results & Data Laboratory Results Short CBC 09/17/18 Range/Units 04:49 WBC 7.58 (4.8-10.8) K/uL Hgb 13.6 L (14.0-18.0) g/dL Hct 40.7 L (42-52) % Plt Count 229 (130-400) K/uL BMP 09/17/18 04:49 Sodium 137 Potassium 3.7 D Chloride 99 Carbon Dioxide 34 H BUN 38 H Creatinine 1.55 H Glucose 108 H Calcium 8.7 Cardiac Enzymes 09/16/18 Range/Units 09:17 Troponin I 0.236 H* (0-0.045) ng/ml ECG Rhythm: sinus rhythm Findings: + 1st degree AV block and + PAC Change: no significant change
[2018-09-17] MEDS: CARVEDILOL 6.25 MG TAB PO SCH ×2 (09:40→18:46)
[2018-09-17] MEDS: INSULIN GLARGINE SOLOSTAR 100 UNITS/ML 3 ML PEN SC SCH ×2 (09:41→20:43)
--- NOTE | 2018-09-17 10:03 | Cardiology Progress Note ---
Date of Service September 17, 2018 Assessment & Plan (1) Elevated troponin: Secondary to demand ischemia in the setting of pneumonia, hypoxia, and decompensated diastolic heart failure. Recent acute coronary syndrome not excluded. Continue intravenous heparin, aspirin, statin, and carvedilol as previously ordered. Further ischemic evaluation is indicated. The risks, benefits, alternatives to cardiac catheterization with coronary angiography were reviewed. Creatinine remains above baseline today. We will repeat basic metabolic panel in a.m. with consideration for cardiac catheterization prior to discharge. Lasix will remain on hold. (2) Acute diastolic (congestive) heart failure: Clinically improved. Creatinine trending downward. Lasix will remain on hold. Repeat BMP in a.m. (3) Right lower lobe pneumonia: Antibiotics, nebulizer treatments as per direction of internal medicine. Continue supplemental oxygen as needed. (4) Acute respiratory failure with hypoxia: Secondary to pneumonia. (5) CKD (chronic kidney disease), stage III: Baseline creatinine 1.4. Repeat BMP in a.m. (6) HTN (hypertension): Borderline control. Monitor. Subjective Patient seen and examined at the bedside. Continues to improve clinically. Denies chest pain or shortness of breath. Resting comfortably. Intermittent nonproductive cough unchanged. No orthopnea or paroxysmal nocturnal dyspnea. Sinus rhythm with premature ventricular complexes noted on telemetry. Patient offers no new complaints at this time. Review of Systems All systems reviewed & are unremarkable except as noted in HPI & below Physical Exam 2 Vital Signs (Past 24 Hours): Last Vital Signs Temp 36.6 C 09/17/18 06:58 Pulse 60 09/17/18 09:16 Resp 15 09/17/18 06:58 BP 141/78 H 09/17/18 06:58 Pulse Ox 97 09/17/18 06:58 Physical Exam: General: NAD, AAO x3, well nourished. Overweight. HEENT: Normocephalic. Atraumatic. Conjunctiva pink, no scleral icterus. Neck: No carotid bruits, the carotid upstrokes are brisk. No JVD. No HJR Heart: Regular normal S-1 and S-2 no S-3 or S-4 gallop. No murmurs or rub appreciated. PMI is not displaced. No RV heave. Lungs: Clear bilateral without rales , rhonchi, or wheeze. Abdomen: Normal bowel sounds. Soft. Nontender. No masses or organomegaly. No abdominal bruits. Extremities: No clubbing, or cyanosis. Trace to mild bilateral ankle edema. Pulses: radial=2/4, Dorsalis pedis =2/4, posterior tibial=2/4. Neuro: Cranial nerves grossly intact. No focal motor deficit.
--- NOTE | 2018-09-17 13:58 | Pharmacy Report ---
Pharmacy Glycemic Short Note 2 - Date of Service September 17, 2018 - Glycemic Short BSG Results (Last 24 hours): 09/16/18 09/16/18 09/17/18 16:25 20:25 04:49 Glucose 108 H POC Glucose 110 H 132 H 09/17/18 09/17/18 07:03 11:12 Glucose POC Glucose 98 158 H OUTPATIENT ANTIDIABETIC REGIMEN: * Lantus 42 units HS, Pioglitazone 30 mg HS * A1c 9.2% 09/16/18 ASSESSMENT: 09/17 * Patient received 24 units of insulin yesterday: 12 units of lantus, 12 units of novolog * Patients BSGs ranged from 94-132 * Fasting this AM 98, given 12 units per sliding scale last evening * Patient NPO @ midnight for possible cardiac cath procedure- decrease scale for this evening * Post-prandial BSGs well controlled yesterday- continue current CF/CR 09/16 * Patient's A1c improved to 9.2% from 13% in March * Fasting this AM was 94, below goal range- will continue current scale- maximum dose is a 30% reduction from yesterday's dose * Correction last night from 295 to 103 with previous parameters- will loosen PLAN FOR INPATIENT GLYCEMIC CONTROL: * Hold outpatient oral diabetes medications * Basal insulin * Lantus Scale * hold for bsg <110 * 10 units for BSG 110-160 * 15 units for BSG >160 * Bolus insulin - loosen * NovoLog per scale ACHS or Q6hrs while NPO * Goal Range: Low 120 mg/dL - High 160 mg/dL * Correction Factor: 15 mg/dL/unit * Nutritional / Prandial insulin per carb ratio of 1 unit per 6 grams CHO consumed PLAN FOR DISCHARGE: * Patient has history of heart failure and is currently on pioglitazone. Recommend discontinuation of pioglitazone, as TZDs can cause or exacerbate congestive heart failure, and incidence associated pioglitazone is higher in patients receiving concomitant insulin therapy and patient's older than 65. * A1c has improved to 9.2%, patient may benefit from addition of rapid acting insulin with meals/correctional insulin
[2018-09-17] MEDS: AZITHROMYCIN 250 MG TAB PO SCH (16:38)
[2018-09-17] MEDS: ATORVASTATIN 40 MG TAB PO SCH (20:42)
[2018-09-17] MEDS: CHOLECALCIFEROL 1,000 UNITS TAB PO SCH (20:42)
[2018-09-17] MEDS: ASPIRIN 81 MG ECTAB PO SCH (20:42)
[2018-09-18] MEDS: NITROGLYCERIN 2% OINTMENT 30GM TUBE EXT SCH ×2 (05:17→12:12)
[2018-09-18 05:33] LABS: Hematocrit (blood only) 38.5 % (42-52); Hemoglobin 12.8 g/dL (14.0-18.0); Mean Corpuscular Hgb Conc 33.2 g/dL (32-36); Mean Corpuscular Volume 87.9 fL (80-100); Mean Platelet Volume 10.3 fL (7.4-10.4); Platelet Count 209 K/uL (130-400); RDW Standard Deviation 45.4 fL (36.4-46.3); Red Blood Count 4.38 M/uL (4.7-6.1); White Blood Count 6.47 K/uL (4.8-10.8)
[2018-09-18 05:51] LABS: BUN Creatinine Ratio 22.8 (10-20); Calcium 8.5 mg/dl (8.5-10.1); Creatinine Clr Calc Pharmacy 66.9 ml/min; Est GFR (African American) 58.9; Est GFR (Non-African American) 50.8
[2018-09-18 05:54] LABS: Partial Thromboplastin Ratio 2.2
[2018-09-18 06:11] LABS: Partial Thromboplastin Time 58.4 Seconds (21.0-31.0)
[2018-09-18] MEDS: INSULIN ASPART 100 UNITS/ML 3 ML PEN SC SCH ×3 (08:27→16:51)
[2018-09-18] MEDS: INSULIN GLARGINE SOLOSTAR 100 UNITS/ML 3 ML PEN SC SCH (08:28)
--- NOTE | 2018-09-18 09:22 | Cardiology Progress Note ---
Date of Service September 18, 2018 Assessment & Plan (1) Elevated troponin: Secondary to demand ischemia in the setting of pneumonia, hypoxia, and decompensated diastolic heart failure. Recent acute coronary syndrome not excluded. Intravenous heparin placed on hold. Continue aspirin, statin, and carvedilol as previously ordered. The risks, benefits, alternatives to cardiac catheterization with coronary angiography were reviewed. Patient agreeable. He is a TERESA candidate. (2) Acute diastolic (congestive) heart failure: Compensated. Diuretics on hold. Continue carvedilol as previously ordered. (3) Right lower lobe pneumonia: Antibiotics, nebulizer treatments as per direction of internal medicine. Continue supplemental oxygen as needed. (4) Acute respiratory failure with hypoxia: Secondary to pneumonia. (5) CKD (chronic kidney disease), stage III: Creatinine has trended down to baseline. (6) HTN (hypertension): Borderline control with a situational component. Subjective Patient seen and examined at the bedside. Denies CP. SOB and cough improved. Creatinine trending downward. Offers no new complaints. Review of Systems All systems reviewed & are unremarkable except as noted in HPI & below Physical Exam 2 Vital Signs (Past 24 Hours): Last Vital Signs Temp 36.5 C 09/18/18 06:34 Pulse 63 09/18/18 08:46 Resp 18 09/18/18 06:34 BP 164/91 H 09/18/18 06:34 Pulse Ox 92 09/18/18 06:34 Physical Exam: General: NAD, AAO x3, well nourished. Overweight. HEENT: Normocephalic. Atraumatic. Conjunctiva pink, no scleral icterus. Neck: No carotid bruits, the carotid upstrokes are brisk. No JVD. No HJR Heart: Regular normal S-1 and S-2 no S-3 or S-4 gallop. No murmurs or rub appreciated. PMI is not displaced. No RV heave. Lungs: Clear bilateral without rales , rhonchi, or wheeze. Abdomen: Normal bowel sounds. Soft. Nontender. No masses or organomegaly. No abdominal bruits. Extremities: No clubbing, or cyanosis. Trace to mild bilateral ankle edema. Pulses: radial=2/4, Dorsalis pedis =2/4, posterior tibial=2/4. Neuro: Cranial nerves grossly intact. No focal motor deficit.
[2018-09-18] MEDS ORDERED: NiCARDipine HCL INJ 2.5 MG/ML 10 ML AMP ONE (09:36)
[2018-09-18] MEDS ORDERED: MIDAZOLAM HCL 1 MG/ML 2ML VIAL ONE (09:36)
[2018-09-18] MEDS ORDERED: fentaNYL citrate 100 MCG/2 ML VIAL ONE (09:36)
[2018-09-18] MEDS ORDERED: HEPARIN (PORCINE) 1000 UNIT/ML 10 ML (CATH LAB USE ONLY) ONE (09:36)
[2018-09-18] MEDS: CARVEDILOL 6.25 MG TAB PO SCH ×2 (09:41→16:51)
--- NOTE | 2018-09-18 09:51 | Pre Anesthesia Assessment ---
Date of Service September 18, 2018 Pre Sedation Assessment Vital Signs Temp Pulse Pulse Resp BP BP Pulse Ox 09/18/18 08:46 63 09/18/18 06:34 36.5 C 66 18 164/91 H 92 09/18/18 03:40 36.8 C 64 141/88 H 93 09/17/18 23:13 36.6 C 66 20 150/83 H 94 09/17/18 22:20 62 09/17/18 19:21 36.7 C 68 20 171/95 H 96 09/17/18 15:04 66 09/17/18 15:02 36.6 C 67 20 165/92 H 97 09/17/18 11:33 37.0 C 68 24 136/80 93 Cardiovascular + regular rate no murmur + radial pulses present + edema (B/L ankle) Respiratory normal respiratory effort, lungs clear to auscultation Pre-Sedation Airway Assessment Smoking Status: Never smoker Mallampati Class: III Procedure Planning Contraindications for Sedation: none Current Medications Reviewed: Yes Notes The planned sedation has been discussed with the patient. Informed Consent was obtained. I have identified the patient, determined the appropriateness of sedation and have assessed the patient immediately prior to the procedure. All medicine(s) and interventions are by my order.
[2018-09-18] MEDS ORDERED: ADENOSINE IV SOLN 3 MG/ML 20 ML VIAL IV ONE (10:21)
--- NOTE | 2018-09-18 10:25 | Post Anesthesia Assessment ---
Date of Service September 18, 2018 Post Sedation Assessment Vital Signs Temp Pulse Pulse Resp BP BP Pulse Ox 09/18/18 08:46 63 09/18/18 06:34 36.5 C 66 18 164/91 H 92 09/18/18 03:40 36.8 C 64 141/88 H 93 09/17/18 23:13 36.6 C 66 20 150/83 H 94 09/17/18 22:20 62 09/17/18 19:21 36.7 C 68 20 171/95 H 96 09/17/18 15:04 66 09/17/18 15:02 36.6 C 67 20 165/92 H 97 09/17/18 11:33 37.0 C 68 24 136/80 93 Post Sedation Plan On clinical assessment, the patient appears to have tolerated the sedation without complications. Patient is recovering as anticipated. Patient will continue to be monitored by nursing and may be discharged when sedation discharge criteria are met per below protocol. Upon Completions of procedure and additional 15 minutes continue every 5 minute vital signs and the P.A.R. score; then discharge to a Phase I or Fast Track to Phase II per the following guidelines: * Discharge Patient to appropriate Phase II area if PAR is 8 or greater or return to pre- procedure baseline. The post - procedure orders will be as directed. * If PAR score is less than 8 or not return to pre-procedure baseline then patient will follow Phase I monitoring till PAR is reached for Phase II. The Phase I may be done in procedure room or may call to secure a Phase I area. * If naloxone or flumazenil are used for reversal, hold in Phase I for continued monitoring from when last reversal dose was given for a minimum of 60 minutes or longer pending the nurse and/or physician discretion of patient condition before discharge to Phase II. Please call the Sedation Physician to re-evaluate and complete post-note for discharge to Phase II area. Do NOT discharge from procedure sedation or Phase 1 until post- sedation evaluation note is complete by procedure /sedation MD Sedation Discharge Instructions to be given to the patient at discharge to home.
--- NOTE | 2018-09-18 10:41 | Cardiac Catheterization ---
Cardiac Cath Procedure Full Procedure Date September 18, 2018 Pre-Procedure Diagnosis Pre-Procedure Diagnosis: Acute Coronary Syndrome, CHF and Cardiothoracic Symptom AUC Score AUC Score: 8 Post-Procedure Diagnosis Post-Procedure Diagnosis: Severe CAD and Normal Intracardiac Pressures Procedure(s) Performed Procedure(s) Performed: Coronary Angiography and Left Heart Cath Metal Worker Ross Lindquist DO Computer Network Specialist(s) Bessie PLASTER PATTERNMAKER Estimated Blood Loss Estimated Blood Loss: 5cc Medication(s) Medication(s): Fentanyl, Heparin, Lidocaine 1%, Nicardipine, Nitroglycerin and Versed Summary of Findings Severe prox - mid LAD, moderately calcified Moderate ostial Lcx Moderate mid OM Hemodynamics Rest Ao:: 109/62/83 Final Ao: 116/59/88 LV: 124/25/10 Recommendations Recommendations: Management Recommendatons (FFR of Lcx, if not significant, proceed with PCI of LAD. If FFR + will refer for CABG - BROUSSARD LAD, SVG Lcx) Specimens Specimens: None Radiation Exposure (mGy) 1322 Contrast (mls) 80 Fluids (cc crystalloids) Fluids (cc crystalloids): 65 Anesthesia Moderate sedation, Start 0952, End 1020. Sedation monitor. Vasyl Doran RN Procedural Complication(s) None Disposition cardiac catheterization technician for FFR +/- PCI ACC Data: Associate Professor Of Pathology Cardiac Status Clinical evaluation leading to the procedure CAD Presenation: Non STEMI Heart Failure: NYHA Class: CCS III Cardiogenic Shock within 24 Hours: No Cardiac Arrest within 24 Hours: No Imaging Studies Past 6 Months: No Stress Studies Past 6 Months: No STEMI OR Non-STEMI Symptom Onset Date: 09/07/18 Symptom Onset Time: 09:00 Thrombolytics: No Coronary Anatomy Dominant: Right Left Main (% Stenosis): Mid (10% moderate calcification) and Distal (20% taper) LAD (% Stenosis): Ostial (20%) and Proximal ( tandem 50% - 90% at origin of septal pharmaceutical officer, followed by 80%) D1 (% Stenosis): Ostial (70%, small vessel) and Mid (10% diffuse) D2 (% Stenosis): Ostial (70% ostial, small vessel) and Mid (10% diffuse) D3 (% Stenosis): Ostial (80% small vessel), Proximal (80%) and Mid (60-70% diffuse) Circumflex (% Stenosis): Ostial (60% ostial in limted views) and Proximal (20%) OM1 (% Stenosis): Mid (60%) and Distal (20% diffuse) RCA (% Stenosis): Proximal (10%), Mid (10%) and Distal (20%) R PDA (% Stenosis): Mid (10-20% diffuse) and Distal (20-30% diffuse) R PL1 (% Stenosis): Mid (10% diffuse) R PL2 (% Stenosis): Mid (10% diffuse) Diagnostic Physicians Name: Ross Lindquist DO Status: Elective Closure Device Percutaneous Entry Location: Radial Closure Device: Radial Band Recommendations: Management Recommendatons (FFR of Lcx, if not significant, proceed with PCI of LAD. If FFR + will refer for CABG - BROUSSARD LAD, SVG Lcx) Intraprocedure Events Significant Disection: No Perforation: No
--- NOTE | 2018-09-18 11:12 | Post Anesthesia Assessment ---
Date of Service September 18, 2018 Post Sedation Assessment Vital Signs Temp Pulse Pulse Resp BP BP Pulse Ox 09/18/18 08:46 63 09/18/18 06:34 36.5 C 66 18 164/91 H 92 09/18/18 03:40 36.8 C 64 141/88 H 93 09/17/18 23:13 36.6 C 66 20 150/83 H 94 09/17/18 22:20 62 09/17/18 19:21 36.7 C 68 20 171/95 H 96 09/17/18 15:04 66 09/17/18 15:02 36.6 C 67 20 165/92 H 97 09/17/18 11:33 37.0 C 68 24 136/80 93 Recovery Score Activity: Moves 4 extremities Respiration: Deep Breath/Cough Circulation: +/-20% PreAnes Value Consciousness: Fully Awake Oxygen Saturation: O2 needed for >90% Discharge Sedation Level of Care: Fast Track Phase II Post Sedation Plan On clinical assessment, the patient appears to have tolerated the sedation without complications. Patient is recovering as anticipated. Patient will continue to be monitored by nursing and may be discharged when sedation discharge criteria are met per below protocol. Upon Completions of procedure and additional 15 minutes continue every 5 minute vital signs and the P.A.R. score; then discharge to a Phase I or Fast Track to Phase II per the following guidelines: * Discharge Patient to appropriate Phase II area if PAR is 8 or greater or return to pre- procedure baseline. The post - procedure orders will be as directed. * If PAR score is less than 8 or not return to pre-procedure baseline then patient will follow Phase I monitoring till PAR is reached for Phase II. The Phase I may be done in procedure room or may call to secure a Phase I area. * If naloxone or flumazenil are used for reversal, hold in Phase I for continued monitoring from when last reversal dose was given for a minimum of 60 minutes or longer pending the nurse and/or physician discretion of patient condition before discharge to Phase II. Please call the Sedation Physician to re-evaluate and complete post-note for discharge to Phase II area. Do NOT discharge from procedure sedation or Phase 1 until post- sedation evaluation note is complete by procedure /sedation MD Sedation Discharge Instructions to be given to the patient at discharge to home.
--- NOTE | 2018-09-18 11:16 | Cardiac Catheterization ---
Cardiac Cath Procedure Full Procedure Date September 18, 2018 Pre-Procedure Diagnosis Pre-Procedure Diagnosis: Non STEMI AUC Score AUC Score: 8 Post-Procedure Diagnosis Post-Procedure Diagnosis: Severe CAD and Unsuccessful PCI Procedure(s) Performed Procedure(s) Performed: Coronary Angiography, PTCA and Fractional Flow [place] [employer] Fredo Silver MD Coil Strapper(s) Bessie CHIU Estimated Blood Loss Estimated Blood Loss: 5cc Medication(s) Medication(s): Fentanyl, Heparin, Nicardipine, Nitroglycerin and Versed Summary of Findings Indication: NSTEMI, dyspnea Access: 6 Ukrainian right radial artery Catheters: EBU 3.5 guide Findings: For full details of patient's coronary angiography please cath report dictated by Dr. Lindquist. Briefly, patient found to have multi vessel disease including a 90-95 % stenosis involving the mid LAD. Also noted to have moderate ostial circumflex disease. Decision to proceed with FFR of circumflex and possible PCI of mid LAD. -- PCI -- Antithrombotic therapy: Heparin Procedure: Left main cannulated with EBU 3.5 guide Straight FFR wire navigated into distal circumflex IFR 1.0, FFR 0.96 FFR wire removed. Ride Assembly Supervisor 50 wire navigated into distal LAD Attempted to pass 2.5, 2.0, 1.25 balloon across mid LAD segment just before takeoff of small diagonal but unable to pass balloon across lesion. Earlymid LAD segment was dilated with 2.0 and 2.5 balloon but still unable to pass any balloons more distal. Post procedure heavily calcified mid LAD stenosis unchanged, AUSTYN-3 flow distally and patient chest pain-free. Decision to abort procedure and recommend further evaluation by interventional cardiology at a tertiary center for possible atherectomy. Arterial Closure: TR Summary: 1. Moderate, nonobstructive ostial circumflex disease (FFR 0.96). 2. Severe, heavily calcified mid LAD stenosis 3. Unsuccessful PCI of mid LAD due to inability to pass balloons across calcified lesion Recommendations: To PCU for continued monitoring Continue heparin infusion Transfer to tertiary center for evaluation for possible PCI with atherectomy versus bypass surgery. Hemodynamics Rest Ao:: 109/62/83 Final Ao: 155/71/105 LV: 124/10 Recommendations Recommendations: PCI without planned CABG Specimens Specimens: None Radiation Exposure (mGy) 3815 Contrast (mls) 170 Fluids (cc crystalloids) Fluids (cc crystalloids): 90 Drains Drains: Moderate Anesthesia Moderate Procedural Complication(s) None Disposition PCU ACC Data: Reliability Technologist Cardiac Status Clinical evaluation leading to the procedure CAD Presenation: Non STEMI Anginal Classification: CCS III Heart Failure: No Cardiogenic Shock within 24 Hours: No Cardiac Arrest within 24 Hours: No Imaging Studies Past 6 Months: Yes Stress Studies Past 6 Months: No Diagnostic Physicians Name: Fredo Silver MD Status: Elective Closure Device Percutaneous Entry Location: Radial Closure Device: Radial Band Recommendations: PCI without planned CABG PCI Indication: PCI for high risk Non-JOANNA Lesion Segment Name: Mid LAD Culprit Artery: Yes Stenosis Prior to Rx (%): 90 Chronic Total Occlusion: No IVUS: No FFR: No Pre-Procedure AUSTYN Flow: 3 Previously Treated Lesion: No Lesion Complexity: High/C Lesion Length (mm): 20 Thrombus Present: No Bifurcation Lesion: Yes Guidewire Across Lesion: Stenosis Post-Procedure (%): 95 Post-Procedure AUSTYN Flow: 3 Devices(s) Deployed: No Yes Intraprocedure Events Significant Disection: No Perforation: No
[2018-09-18] MEDS ORDERED: SODIUM CHLORIDE 0.9% 1000ML 1,000 ML IV SCH (11:30)
--- NOTE | 2018-09-18 14:19 | Pharmacy Report ---
Pharmacy Glycemic Short Note 2 - Date of Service September 18, 2018 - Glycemic Short BSG Results (Last 24 hours): 09/17/18 09/17/18 09/18/18 16:22 20:41 05:23 Glucose 147 H POC Glucose 163 H 106 H 09/18/18 09/18/18 06:42 11:36 Glucose POC Glucose 150 H 154 H OUTPATIENT ANTIDIABETIC REGIMEN: * Lantus 42 units HS, Pioglitazone 30 mg HS * A1c 9.2% 09/16/18 ASSESSMENT: 09/18: * Patient received 11 units of novolog yesterday and NO basal insulin * Patient made NPO at midnight for procedure, now with diet ordered * Fasting/lunchtime BSGs remain reasonable given lack of basal insulin for 24 hours. Gave 5 units of lantus this morning and will keep a conservative scale on this evening 09/17 * Patient received 24 units of insulin yesterday: 12 units of lantus, 12 units of novolog * Patients BSGs ranged from 94-132 * Fasting this AM 98, given 12 units per sliding scale last evening * Patient NPO @ midnight for possible cardiac cath procedure- decrease scale for this evening * Post-prandial BSGs well controlled yesterday- continue current CF/CR 09/16 * Patient's A1c improved to 9.2% from 13% in March * Fasting this AM was 94, below goal range- will continue current scale- maximum dose is a 30% reduction from yesterday's dose * Correction last night from 295 to 103 with previous parameters- will loosen PLAN FOR INPATIENT GLYCEMIC CONTROL: * Hold outpatient oral diabetes medications * Basal insulin * Lantus Scale * 5 units for bsg <120 * 10 units for BSG 120-180 * 15 units for BSG >180 * Bolus insulin - loosen * NovoLog per scale ACHS or Q6hrs while NPO * Goal Range: Low 120 mg/dL - High 160 mg/dL * Correction Factor: 15 mg/dL/unit * Nutritional / Prandial insulin per carb ratio of 1 unit per 6 grams CHO consumed PLAN FOR DISCHARGE: * Patient has history of heart failure and is currently on pioglitazone. Recommend discontinuation of pioglitazone, as TZDs can cause or exacerbate congestive heart failure, and incidence associated pioglitazone is higher in patients receiving concomitant insulin therapy and patient's older than 65. * A1c has improved to 9.2%, patient may benefit from addition of rapid acting insulin with meals/correctional insulin
[2018-09-18] MEDS: AZITHROMYCIN 250 MG TAB PO SCH (16:51)
--- NOTE | 2018-09-18 17:05 | Hospitalist Progress Note ---
Date of Service September 18, 2018 Assessment & Plan (1) Elevated troponin: Patient presented to the hospital with shortness of breath. Found to be hypoxic as discussed below. Chest x-ray showed right lower lung density, infiltrate versus edema. Multiple risk factors for ischemic heart disease. Serum troponin 0.284 and neda as high as 0.379. EKG demonstrated NSR, nonspecific ST, T-wave abnormalities. Cardiology consulted. Echo demonstrated mild concentric LVH, LVEF 55-60%, hypokinesis of apical inferoseptum and anteroseptum. Received aspirin, IV heparin, carvedilol, lisinopril, statin. Cardiac catheterization performed by Dr. Lindquist. Found to have multivessel disease with a severe proximal-mid LAD lesion, a moderate ostial lesion left circumflex, and a moderate lesion in the mid obtuse marginal. Dr. Silver evaluate the patient for PCI. Found to have heavily calcified mid LAD lesion, unable to pass balloon across the lesion. Transfer to [facility] recommended for further evaluation and management. (2) Acute diastolic (congestive) heart failure: Presented with SOB and hypoxia. Chest x-ray demonstrated right lower lung density, infiltrate vs pulmonary edema. Echo demonstrated mild concentric LVH, LVEF 55-60%, hypokinesis of apical inferoseptum and anteroseptum. BNP elevated. [place] to have acute diastolic left ventricular CHF. Received IV furosemide with improvement. (3) Right lower lobe pneumonia: Experiencing congested cough and SOB at time of admission. O2 sat as low as 87% on RA. No fever or leukocytosis. Chest x-ray demonstrated right lower lung density, infiltrate vs pulmonary edema. Echo demonstrated mild concentric LVH, LVEF 55-60%, hypokinesis of apical inferoseptum and anteroseptum. BNP elevated. Procalcitonin normal. [place] to have acute diastolic left ventricular CHF. Received azithromycin and ceftriaxone. Ceftriaxone discontinued. Continue azithromycin for 1 more day to complete 5 day course. Follow-up chest x-ray to ensure resolution. (4) HTN (hypertension): Receiving carvedilol, lisinopril, HCTZ. Follow and titrate Rx. (5) CKD (chronic kidney disease), stage III: History of CKD III. Serum creatinine 1.47 on day of admission, 1.41 on day of discharge. Follow. (6) Diabetes mellitus type II, uncontrolled: DM type 2, ususally managed with pioglitazone and insulin glargine. Hgb A1C = 9.2. Managed with Lantus + NovoLog per protocol. FBS day of discharge = 150. (7) HLD (hyperlipidemia): LDL-c = 83. Continue atorvastatin. (8) DVT (deep venous thrombosis): Received IV heparin. (9) Discharge planning issues: Arrangements being made for transfer to [facility] for further evaluation and management. Family Medicine follow-up with Dr. Garsia. Subjective Recheck for multiple problems. Patient seen in his room around 1620. Cardiac catheterization performed earlier today by Dr. Lindquist. Found to have multivessel disease with a severe proximal-mid LAD lesion, a moderate ostial lesion left circumflex, and a moderate lesion in the mid obtuse marginal. Dr. Silver evaluate the patient for PCI. Found to have heavily calcified mid LAD lesion, unable to pass balloon across the lesion. Transfer to [facility] recommended for further evaluation and management. Patient feels well. Dyspnea improved. Occasional nonproductive cough. No chest pain or chest pressure. No nausea or vomiting. Physical Exam 2 Vital Signs (Past 24 Hours): Last Vital Signs Temp 36.5 C 09/18/18 16:25 Pulse 69 09/18/18 16:25 Resp 19 09/18/18 16:25 BP 188/100 H 09/18/18 16:25 Pulse Ox 95 09/18/18 16:25 Constitutional: WD/WN, vitals as above no acute distress Respiratory: no respiratory distress Auscultation: + rhonchi (few) Cardiovascular: Rate/Rhythm: regular rate and regular rhythm Heart Sounds: no gallop Vessels: no JVD Extremities: + edema (1+) Gastrointestinal (Abdomen): Inspection/Auscultation: normal bowel sounds Percussion/Palpation: abdomen soft; abdomen nontender Musculoskeletal: Extremities: + upper extremity abnormal to inspection Right ( radial artery cath site without hematoma; capillary refill right hand < 1 sec) Psychiatric: A+Ox3, euthymic affect Results & Data Laboratory Results Laboratory Results - last 24 hr 09/17/18 09/18/18 09/18/18 20:41 05:23 05:23 WBC 6.47 RBC 4.38 L Hgb 12.8 L Hct 38.5 L MCV 87.9 MCH 29.2 MCHC 33.2 RDW Std Deviation 45.4 RDW Coeff of Saritha 14.0 Plt Count 209 MPV 10.3 APTT PTT Ratio Sodium 135 L Potassium 4.0 Chloride 100 Carbon Dioxide 31 Anion Gap 4.0 BUN 32 H Creatinine 1.41 H Est Cr Clr Drug Dosing 66.9 Est GFR ( Amer) 58.9 Est GFR (Non-Af Amer) 50.8 BUN/Creatinine Ratio 22.8 H Glucose 147 H POC Glucose 106 H Calcium 8.5 Triglycerides 173 H Cholesterol 147 LDL Cholesterol, Calc 83 VLDL Cholesterol, Calc 35 HDL Cholesterol 29 Cholesterol/HDL Ratio 5 09/18/18 09/18/18 09/18/18 05:23 06:42 11:36 WBC RBC Hgb Hct MCV MCH MCHC RDW Std Deviation RDW Coeff of Saritha Plt Count MPV APTT 58.4 H* PTT Ratio 2.2 Sodium Potassium Chloride Carbon Dioxide Anion Gap BUN Creatinine Est Cr Clr Drug Dosing Est GFR ( Amer) Est GFR (Non-Af Amer) BUN/Creatinine Ratio Glucose POC Glucose 150 H 154 H Calcium Triglycerides Cholesterol LDL Cholesterol, Calc VLDL Cholesterol, Calc HDL Cholesterol Cholesterol/HDL Ratio 09/18/18 16:29 WBC RBC Hgb Hct MCV MCH MCHC RDW Std Deviation RDW Coeff of Saritha Plt Count MPV APTT PTT Ratio Sodium Potassium Chloride Carbon Dioxide Anion Gap BUN Creatinine Est Cr Clr Drug Dosing Est GFR ( Amer) Est GFR (Non-Af Amer) BUN/Creatinine Ratio Glucose POC Glucose 206 H Calcium Triglycerides Cholesterol LDL Cholesterol, Calc VLDL Cholesterol, Calc HDL Cholesterol Cholesterol/HDL Ratio
--- NOTE | 2018-09-18 17:37 | Discharge Summary ---
Date of Service Date of admission: 09/15/18 Date of discharge: 09/18/18 Admission HPI Per Admitting Provider This is a 68-year-old male with a PMH of uncontrolled DM II, CKD III, HTN and HLD who presents for progressively worsening shortness of breath and nonproductive cough x 2 weeks. Initially seen in clinic last week and started on doxycycline and prednisone for complicated bronchitis. Return to clinic on a few days later with continued symptoms and chest x-ray revealed patchy bibasilar opacities may reflect pneumonia or edema. Was started on Levaquin, continued on prednisone and started on Lasix 40 mg p.o. daily as needed. Presents to ER today with worsening dyspnea on exertion and nonproductive cough. Patient is afebrile and denies chills. Was found to be hypoxic at 87% on room air (is not on home O2) but saturation improved to 94% on 2 L nasal cannula. Patient feels like there is congestion in his chest but "cannot cough any mucus up". Denies wheezing or hemoptysis. Has been experiencing fatigue, generalized weakness and orthopnea. Also noted swelling of his ankles and feet starting yesterday, so took dose of 40mg PO Lasix in the evening and then again this morning. Denies any chest pain, palpitations or PND. Per chart review, patient has gained approximately 20 lbs since late July. Echo performed in March 2018 with mildly concentric LVH, EF of 55-59% and mildly abnormal diastolic dysfunction (grade 1). Found to have troponin elevation of 0.284. No acute EKG changes. CXR with R lower lung zone airspace opacities likely PNA. Admission Exam Per Admitting Provider General Appearance: WD/WN, no apparent distress, pleasant Head: normocephalic, atraumatic Eyes: normal inspection, PERRL, EOMI ENT: hearing grossly normal, pharynx normal (moist mucous membranes) Neck: supple, no JVD, no adenopathy Respiratory/Chest: Coarse breath sounds at R lung base. Otherwise clear. No wheezes, rales or rhonci. No respiratory distress or accessory muscle use Cardiovascular: regular rate, rhythm, no murmur, normal peripheral pulses, trace BLE edema Abdomen/GI: normal bowel sounds, soft, non-tender to palpation Extremities/Musculoskelatal: normal inspection, no calf tenderness, normal capillary refill, no pedal edema Neurologic/Psych: alert, normal mood/affect, oriented x 3 Skin: normal color, warm/dry, Principal Diagnosis non ST elevation myocardial infarction coronary artery disease- calcified proximal - mid LAD stenosis acute diastolic left ventricular congestive heart failure RLL desnity- pneumonia vs pulmonary edema DM type 2 hypertension dyslipidemia Discharge Data Allergies Allergy/AdvReac Type Severity Reaction Status Date / Time No Known Allergies Allergy Unverified 09/15/18 11:22 Consultations 09/15/18 12:44 ED Decision to Admit Stat 09/15/18 15:35 Consult Cardiology Routine Procedures Performed Operation Date: 09/18/18 09:30 Actual Procedures p Cath, Left with Cors and Vent - Sal Silver MD s Cineradiography w/Routine Exam - Ross Lindquist DO s Fraction Flow [place] SGL Ves - Sal Silver MD s POBA SGL Vessel - Sal Silver MD Ordered Studies 09/18/18 09:25 CL Cath Imgs for PACS use only Routine Hospital Course (1) Elevated troponin: Patient presented to the hospital with shortness of breath. Found to be hypoxic as discussed below. Chest x-ray showed right lower lung density, infiltrate versus edema. Multiple risk factors for ischemic heart disease. Serum troponin 0.284 and neda as high as 0.379. EKG demonstrated NSR, nonspecific ST, T-wave abnormalities. Cardiology consulted. Echo demonstrated mild concentric LVH, LVEF 55-60%, hypokinesis of apical inferoseptum and anteroseptum. [place] to have non ST elevation myocardial infarction. Received aspirin, IV heparin, carvedilol, lisinopril, statin. Cardiac catheterization performed by Dr. Lindquist. Found to have multivessel disease with a severe proximal-mid LAD lesion, a moderate ostial lesion left circumflex, and a moderate lesion in the mid obtuse marginal. Dr. Silver evaluate the patient for PCI. Found to have heavily calcified mid LAD lesion, unable to pass balloon across the lesion. Transfer to [facility] recommended for further evaluation and management. (2) Acute diastolic (congestive) heart failure: Presented with SOB and hypoxia. Chest x-ray demonstrated right lower lung density, infiltrate vs pulmonary edema. Echo demonstrated mild concentric LVH, LVEF 55-60%, hypokinesis of apical inferoseptum and anteroseptum. BNP elevated. [place] to have acute diastolic left ventricular CHF. Received IV furosemide with improvement. (3) Right lower lobe pneumonia: Experiencing congested cough and SOB at time of admission. O2 sat as low as 87% on RA. No fever or leukocytosis. Chest x-ray demonstrated right lower lung density, infiltrate vs pulmonary edema. Echo demonstrated mild concentric LVH, LVEF 55-60%, hypokinesis of apical inferoseptum and anteroseptum. BNP elevated. Procalcitonin normal. [place] to have acute diastolic left ventricular CHF. Received azithromycin and ceftriaxone. Ceftriaxone discontinued. Continue azithromycin for 1 more day to complete 5 day course. Follow-up chest x-ray to ensure resolution. (4) HTN (hypertension): Receiving carvedilol, lisinopril, HCTZ. Follow and titrate Rx. (5) CKD (chronic kidney disease), stage III: History of CKD III. Serum creatinine 1.47 on day of admission, 1.41 on day of discharge. Follow. (6) Diabetes mellitus type II, uncontrolled: DM type 2, ususally managed with pioglitazone and insulin glargine. Hgb A1C = 9.2. Managed with Lantus + NovoLog per protocol. FBS day of discharge = 150. (7) HLD (hyperlipidemia): LDL-c = 83. Continue atorvastatin. (8) DVT (deep venous thrombosis): Received IV heparin. (9) Discharge planning issues: Arrangements being made for transfer to [facility] for further evaluation and management. Family Medicine follow-up with Dr. Garsia. Home Medications aspirin 81 mg PO HS 09/15/18 [History Confirmed 09/15/18] atorvastatin 80 mg PO HS 09/15/18 [History Confirmed 09/15/18] benzonatate 100 mg PO TID PRN 09/15/18 [History Confirmed 09/15/18] carvedilol 6.25 mg PO BIDM 09/15/18 [History Confirmed 09/15/18] cholecalciferol (vitamin D3) 2,000 unit PO HS 09/15/18 [History Confirmed ] doxycycline hyclate 100 mg PO BID 09/15/18 [History Confirmed 09/15/18] furosemide 40 mg PO DAILY PRN 09/15/18 [History Confirmed 09/15/18] insulin glargine [Lantus U-100 Insulin] 42 unit SUBCUT 09/15/18 [History Confirmed 09/15/18] levofloxacin 750 mg PO HS 09/15/18 [History Confirmed 09/15/18] lisinopril-hydrochlorothiazide 1 tab PO HS 09/15/18 [History Confirmed 09/15/18] pioglitazone 30 mg PO HS 09/15/18 [History Confirmed 09/15/18] prednisone 40 mg PO DAILY 09/15/18 [History Confirmed 09/15/18] Active Inpatient Medications Acetaminophen (Tylenol) 650 mg PO Q4H PRN PRN Reason: Pain or Fever Stop: 10/15/18 15:34 Aspirin (Ecotrin Ectab) 81 mg PO [facility] Stop: 10/16/18 20:59 Last Admin: 09/17/18 20:42 Dose: 81 mg Atorvastatin Calcium (Lipitor) 80 mg PO [facility] Stop: 10/15/18 20:59 Last Admin: 09/17/18 20:42 Dose: 80 mg Azithromycin (Zithromax) 500 mg PO DAILY@1600 [facility]; Protocol Stop: 09/22/18 15:59 Last Admin: 09/18/18 16:51 Dose: 500 mg Benzonatate (Tessalon Perle) 100 mg PO TID PRN PRN Reason: Cough Stop: 10/15/18 15:34 [facility]il[facility] (Coreg) [facility] Stop: 10/15/18 16:59 Last Admin: 09/18/18 16:51 Dose: 6.25 mg Dextrose (Dextrose 50%) 25 - 50 ml IV UD PRN; Protocol PRN Reason: Hypoglycemia Protocol Stop: 10/15/18 15:34 Glucagon (Glucagen) 1 mg SQ UD PRN; Protocol PRN Reason: Hypoglycemia Protocol Stop: 10/15/18 15:34 Glucose (Dex4 Glucose) 4 - 8 tabs PO UD PRN; Protocol PRN Reason: Hypoglycemia Protocol Stop: 10/15/18 15:34 Glucose (Glucose 40%) 15 - 30 gm PO UD PRN; Protocol PRN Reason: Hypoglycemia Protocol Stop: 10/15/18 15:34 Lisinopril/HCTZ (Prinzide 20/25mg) 1 tab PO [facility] Stop: 10/15/18 20:59 Last Admin: 01/29/19 20:45 Dose: 1 tab Furosemide 40 mg/ Syringe 4 mls @ 4 mls/min IV DAILY [facility] Stop: 10/16/18 08:59 Last Admin: 09/16/18 08:06 Dose: 4 mls/min Heparin Sodium/Dextrose (Heparin Sodium/Dextrose) 25,000 units in 500 mls @ 27 mls/hr IV .Q16H8M [facility]; Protocol Stop: 10/15/18 17:29 Last Titration: 09/18/18 06:55 Dose: 1,350 units/hr, 27 mls/hr Insulin Aspart (Novolog Flexpen) 0 units SC ACHS [facility]; Protocol Stop: 10/15/18 16:29 Last Admin: 09/18/18 16:51 Dose: 12 units Insulin Glargine (Lantus Solostar Pen) 0 units SC BID [facility]; Protocol Stop: 10/15/18 21:59 Last Admin: 09/18/18 08:28 Dose: 5 units Miscellaneous (Carbohydrates For Hypoglycemia) 15 - 30 gm PO UD PRN PRN Reason: Hypoglycemia Treatment Stop: 10/15/18 15:34 Miscellaneous Information (Consult Glycemic Management Pharmacy) 1 ea N/A UD PRN PRN Reason: Consult Stop: 10/15/18 15:42 Nitroglycerin (Nitrostat) 0.4 mg SL UD PRN PRN Reason: Chest Pain Stop: 10/15/18 15:34 Nitroglycerin (Nitro-Bid 2%) 0.5 inch EXT Q6H [facility] Stop: 10/15/18 17:14 Last Admin: 09/18/18 12:12 Dose: 0.5 inch Ondansetron HCl (Zofran) 4 mg IV Q6H PRN PRN Reason: Nausea Stop: 10/15/18 15:34 Polyethylene Glycol (Miralax Powder Packet) 17 gm PO DAILY PRN PRN Reason: Constipation Stop: 10/15/18 15:34 Vitamin D (Vitamin D3) 2,000 units PO HS [facility] Stop: 10/15/18 20:59 Last Admin: 09/17/18 20:42 Dose: 2,000 units Total Time Total Time Spent Total Time Spent (In Minutes): 50 Discharge Plan Discharge Items Patient Disposition: Transfer Acute Care Hospital Reason For Visit: elevated troponin, hypoxia Discharge Diagnosis: ischemic heart disease, high-grade LAD stenosis acute diastolic CHF possible RLL pneumonia Condition: Fair Discharge Goals: Improve disease control Activity: As commented below Activity Comment: To be determined at time of discharge. Non-emergency contact: Primary Care Provider, Hospitalist and Early Childhood Worker Call non-emergency contact if: you have any medication questions and your symptoms worsen Follow-up/Referrals: Ross Lindquist DO [Early Childhood Worker] - John Garsia MD [Primary Care Provider] - Diet: Carb Consistent or DM2 and Heart Healthy Addtl Provider Instructions: Thank you for receiving this patient in transfer. Please call or TigerText if you have any questions. Conor Duff Prescriptions: Discontinued furosemide 40 mg tablet 40 mg PO DAILY PRN (Reason: Fluid Retention) RF: 0 atorvastatin 80 mg tablet 80 mg PO HS RF: 0 carvedilol 6.25 mg tablet 6.25 mg PO BIDM RF: 0 doxycycline hyclate 100 mg capsule 100 mg PO BID RF: 0 insulin glargine [Lantus U-100 Insulin] 100 unit/mL solution 42 unit subcut HS RF: 0 prednisone 20 mg tablet 40 mg PO DAILY RF: 0 aspirin 81 mg Tablet,Delayed Release (Dr/Ec) 81 mg PO HS RF: 0 benzonatate 100 mg capsule 100 mg PO TID PRN (Reason: Cough) RF: 0 lisinopril-hydrochlorothiazide 20-25 mg tablet 1 tab PO HS RF: 0 levofloxacin 750 mg tablet 750 mg PO HS RF: 0 pioglitazone 30 mg tablet 30 mg PO HS RF: 0 cholecalciferol (vitamin D3) 2,000 unit capsule 2,000 unit PO HS RF: 0 Stand-Alone Forms: My [facility] Admission Data Admit Date/Time: 09/15/18 13:41 Attending Provider: Conor Duff Admit Provider: Amisha Miranda Primary Care Provider: John Garsia Other Providers: Amisha Miranda ; Ross Lindquist Service: Telemetry Other Interventions: Discharge Summary Assessment (RN) Last Done: 09/18/18 16:25
== END 2018-09-18 19:13 | disposition short-term general hospital (02) | DRG 250 ==
LOC: ED 10:41 → 2E 13:41
DX: N18.3 Chronic kidney disease, stage 3 (moderate); T38.0X5A Adverse effect of glucocorticoids and synthetic analogues, initial encounter; I21.4 Non-ST elevation (NSTEMI) myocardial infarction; I50.31 Acute diastolic (congestive) heart failure; Z51.81 Encounter for therapeutic drug level monitoring; Z80.3 Family history of malignant neoplasm of breast; E78.5 Hyperlipidemia, unspecified; Z68.41 Body mass index [BMI] 40.0-44.9, adult; E11.22 Type 2 diabetes mellitus with diabetic chronic kidney disease; I25.10 Atherosclerotic heart disease of native coronary artery without angina pectoris; E66.3 Overweight; E11.65 Type 2 diabetes mellitus with hyperglycemia; J96.01 Acute respiratory failure with hypoxia; Z79.82 Long term (current) use of aspirin; J18.9 Pneumonia, unspecified organism; Z79.899 Other long term (current) drug therapy; I13.0 Hypertensive heart and chronic kidney disease with heart failure and stage 1 through stage 4 chronic kidney disease, or unspecified chronic kidney disease

== ENCOUNTER 2019-02-01 15:02 | Inpatient (IN) ==
--- OUTSIDE RECORDS SUMMARY | 2019-02-01 15:06 | External Medical Summary | Continuity of Care Document ---
:1950 Author Name Chris Torres Address Unavailable Unavailable , Care Team Providers Name Role Phone Nadeem Torres Unavailable [email or web address], A Unavailable Unavailable Problems Active medical history not documented Allergies and Adverse Reactions Allergy history not documented Medications Medications not documented Procedures Procedures not documented Immunizations Immunizations not documented Plan of Treatment Planned Observations Planned Goals not documented Results No Known Results Results not documented
[2019-02-01 15:49] LABS: iSTAT Creatinine 1.5 mg/dl (0.6-1.3); iSTAT Hemoglobin 15.6 g/dl (14.0-18.0); iSTAT Ionized Calcium 1.14 mmol/l (1.12-1.32); iSTAT Potassium 3.9 mEq/L (3.3-5.0)
[2019-02-01 15:55] LABS: Partial Thromboplastin Time 27.4 Seconds (21.0-31.0); Prothrombin Time 10.5 Seconds (9.0-12.0)
[2019-02-01 15:56] LABS: Albumin Level 3.3 gm/dl (3.4-5.0); BUN Creatinine Ratio 16.5 (10-20); Calcium 8.7 mg/dl (8.5-10.1); Creatinine Clr Calc Pharmacy 57.4 ml/min; Est GFR (African American) 50.2; Est GFR (Non-African American) 43.3; Potassium 3.9 mmol/L (3.5-5.1)
[2019-02-01 15:59] LABS: Albumin Globulin Ratio 0.8 (0.9-2); Bilirubin,Total 1.3 mg/dl (0.2-1); Total Protein 7.3 gm/dl (6.4-8.2)
--- NOTE | 2019-02-01 16:00 | XRay Report ---
XR chest 1V portable CLINICAL HISTORY: Chest pain. COMPARISON STUDY: Chest radiograph September 15, 2018. FINDINGS: Lung volumes are normal. There is no pneumothorax or pleural effusion. There is no consolid ation or evidence for pulmonary edema. There is mild cardiomegaly. IMPRESSION: 1. No acute cardiopulmonary findings. 2. Mild cardiomegaly. Electronically signed by: Chepe Cherry M.D. 02/01/2019 3:58 PM
[2019-02-01] MEDS ORDERED: ASPIRIN 81 MG CHEW PO STA (16:02)
[2019-02-01 16:03] LABS: Basophils # (auto) 0.03 K/uL (0-0.2); Basophils % (auto) 0.3 %; Eosinophils # (auto) 0.04 K/uL (0-0.5); Eosinophils % (auto) 0.4 %; Hematocrit (blood only) 41.5 % (42-52); Hemoglobin 14.4 g/dL (14.0-18.0); Immature Granulocytes # (auto) 0.03 K/uL (0.00-0.02); Immature Granulocytes % (auto) 0.3 %; Lymphocytes # (auto) 1.54 K/uL (1.2-3.4); Mean Corpuscular Hgb Conc 34.7 g/dL (32-36); Mean Corpuscular Volume 85.9 fL (80-100); Mean Platelet Volume 10.7 fL (7.4-10.4); Monocytes # (auto) 1.17 K/uL (0.11-0.59); Monocytes % (auto) 12.2 %; Neutrophils % (auto) 70.8 %; Platelet Count 178 K/uL (130-400); RDW Coefficient of Variation 13.5 % (11.5-14.5); RDW Standard Deviation 42.6 fL (36.4-46.3); Red Blood Count 4.83 M/uL (4.7-6.1); White Blood Count 9.61 K/uL (4.8-10.8)
[2019-02-01] MEDS ORDERED: Heparin BOLUS **ED Use Only IV STA (16:09)
[2019-02-01] MEDS: Heparin Adult STANDARD Wt-Based Dextrose 5% 25,000 units/500 mL IV SCH (16:28)
--- NOTE | 2019-02-01 17:46 | History & Physical Report ---
Date of Service February 01, 2019 Assessment & Plan (1) ST elevation (STEMI) myocardial infarction involving left anterior desc ending coronary artery: This is a 68-year-old male with a PMH of recent NSTEMI in Sep 2018 s/p stent, DM II, chronic diastolic heart failure, HLD, obesity and other medical problems listed below who presents with hypotension and was found to have had a STEMI involving the LAD. -Had L arm and chest pain Friday-this morning. Did not take ntg or come to hospital until today. Is currently asymptomatic -EKG with ST elevations in anterior leads, initial POC troponin of 26 -Stat bedside echo performed, revealing new apical akinesis, consistent with LAD territory infarction. EF: 40-45% -Initiated on IV heparin, plan to continue for 48 hours -Management per cardiology. No urgent indication for cardiac catheterization at this time due to late presentation of IN -We will plan to transition from Plavix to Brilinta. Continue carvedilol and lisinopril (2) Diabetes mellitus type II, uncontrolled: A1c of 8.9 in September 2018. Will repeat -Continue home lantus -SSI while in-patient -BSG AC HS (3) HTN (hypertension): Hypotensive initially but now normotensive -Continue Coreg, Lisinopril -Hold Lasix and amlodipine for now (4) CKD (chronic kidney disease), stage III: Cr of 1.61 currently (baseline ~1.4) -Hold lasix while creatinine elevated -Continue to monitor (5) Dyslipidemia, goal LDL below 70: Continue high dose statin DVT Ppx: Continue IV heparin Code status: DNR per discussion with patient PCP: Sun Dispo: Admitted to telemetry. Plan to return home once medically stable. Patient seen in collaboration with Dr. Ramos. Please see addendum. History of Present Illness Chief Complaint: Hypotension, sent by [facility] home nurse Primary Care Provider: John Garsia MD This is a 68-year-old male with a PMH of recent NSTEMI in Sep 2018 s/p stent, DM II, chronic diastolic heart failure, HLD, obesity and other medical problems listed below who presents with hypotension. Started to have left arm pain on Friday that moved to his chest on Friday. Was associated with shortness of breath but denies diaphoresis, nausea or vomiting. Had a decreased appetite for the past 3 days. Yesterday and today pain moved to neck and in between shoulder blades. Patient is a [facility] at home patient and had a routine visit today. Patient mentioned pain and was also found to be hypotensive with BP of 80s/50s. Sent to ED for further evaluation. Found to be hemodynamically stable. However, initial POC troponin elevated at 26. EKG with evidence of ST changes to anterolateral leads. Stat echo performed at bedside, report pending. Patient currently asymptomatic. Denies chest pain or shoulder pain. Denies fever, chills, headache, lightheadedness, cough, chest pain, palpitations, shortness of breath, abdominal pain, nausea, vomiting, dysuria, constipation or diarrhea. Allergies Allergy/AdvReac Type Severity Reaction Status Date / Time No Known Allergies Allergy Unverified 09/15/18 11:22 Home Medications Home Medications Medication Instructions Recorded Confirmed Type amlodipine [Norvasc] 2.5 mg PO DAILY 02/01/19 02/01/19 History aspirin [Aspir-Low] 81 mg PO DAILY 02/01/19 02/01/19 History atorvastatin [Lipitor] 80 mg PO QPM 02/01/19 02/01/19 History carvedilol [Coreg] 12.5 mg PO BID 02/01/19 02/01/19 History cholecalciferol (vitamin D3) 2,000 unit PO DAILY 02/01/19 02/01/19 History [Vitamin D3] clopidogrel [Plavix] 75 mg PO DAILY 02/01/19 02/01/19 History empagliflozin [Jardiance] 10 mg PO DAILY 02/01/19 02/01/19 History furosemide [Lasix] 40 mg PO DAILY 02/01/19 02/01/19 History insulin glargine [Lantus U-100 40 unit SUBCUT QPM 02/01/19 02/01/19 History Insulin] lisinopril [Zestril] 20 mg PO DAILY 02/01/19 02/01/19 History nitroglycerin [Nitrostat] 0.4 mg SUBLINGUAL UD PRN 02/01/19 02/01/19 History Past Med/Surg History Medical History Dyslipidemia, goal LDL below 70 (Chronic) CKD (chronic kidney disease), stage III (Chronic) Diabetes mellitus type II, uncontrolled (Chronic) HTN (hypertension) (Chronic) CAD (coronary artery disease) (Chronic) s/p stent to LAD in Sep 2018 at [facility] [place] NSTEMI (non-ST elevated myocardial infarction) (Resolved) Surgical History Stented coronary artery (Chronic) Hx of tonsillectomy (Resolved) Family History Mother Breast cancer Other Stroke Social History Preferred Language: Singaporean Communication Ability: Effective Beliefs That Will Affect Care: None Current Living Situation: Spouse current occupational status: retired Other Information That Helps Us Care for You: No Feels Safe at Home: Yes Safety Concerns: Feels Safe At This Time Smoking Status: Never smoker Second Hand Exposure: No Hx Alcohol Use: No Hx Substance Use: No Review of Systems Review of Systems: At least ten systems reviewed and negative except as noted in the HPI. Physical Exam Physical Exam: General Appearance: WD/WN, no apparent distress, morbidly obese Head: normocephalic, atraumatic Eyes: normal inspection, PERRL, EOMI ENT: hearing grossly normal, pharynx normal (moist mucous membranes) Neck: supple, no JVD, no adenopathy Respiratory/Chest: lungs clear to auscultation. No wheezes, rales or rhonci. No respiratory distress or accessory muscle use Cardiovascular: regular rate, rhythm, no murmur appreciated, normal peripheral pulses, no lower extremity edema Abdomen/GI: normal bowel sounds, soft, non-tender to palpation Extremities/Musculoskelatal: normal inspection, no calf tenderness, normal capillary refill Neurologic/Psych: alert, normal mood/affect, oriented x 3 Skin: normal color, warm/dry Results & Data Vital Signs (Past 12 Hours) Vital Signs Temp Pulse Pulse Resp BP BP Pulse Ox 02/01/19 17:00 60 19 142/75 H 94 02/01/19 16:47 61 64 17 112/74 112/74 95 02/01/19 15:55 64 20 114/73 97 02/01/19 15:29 64 22 136/79 94 02/01/19 15:05 36.8 C 66 18 123/76 96 Laboratory Results Short CBC 02/01/19 Range/Units 15:29 WBC 9.61 (4.8-10.8) K/uL Hgb 14.4 (14.0-18.0) g/dL Hct 41.5 L (42-52) % Plt Count 178 (130-400) K/uL BMP 02/01/19 15:29 Sodium 135 L Potassium 3.9 Chloride 100 Carbon Dioxide 29 BUN 27 H Creatinine 1.61 H Glucose 189 H Calcium 8.7 Liver Function 02/01/19 Range/Units 15:29 Total Bilirubin 1.3 H (0.2-1) mg/dl AST 99 H (15-37) U/L ALT 43 (12-78) U/L Alkaline Phosphatase 67 (45-117) U/L Albumin 3.3 L (3.4-5.0) gm/dl Diagnostic Findings CXR: IMPRESSION: 1. No acute cardiopulmonary findings. 2. Mild cardiomegaly. ECG Findings: + nonspecific-ST abn Supervising Physician Co-Signing Physician Notes Attending addendum: Patient seen and examined care coordinated with Ivis Murillo PA-C This is a 68-year-old male with complex cardiac history of recent non-ST elevated IN in September 2018, status post stent placement, type 2 diabetes, chronic diastolic heart failure -Presented with complaint of left arm/chest pain 3 days ago EKG in ER showed ST elevation in anterior leads with [id number] troponin 26 Patient was chest pain-free during time of interview Started with IV heparin Evaluated by cardiology: Presentation of ST elevated IN Medical management only Admit to telemetry, Continue all cardiac meds, transition Plavix to Brilinta Echo shows new apical akinesis consistent with LAD territory infarction, EF 40- 45% Please refer to further documentation by Ivis Murillo PA-C for discussion of other chronic issues Kallie Ramos MD
[2019-02-01] MEDS ORDERED: GLUCAGON FOR INJ 1 MG VIAL SQ PRN (17:48)
[2019-02-01] MEDS ORDERED: GLUCOSE 40% GEL 15 GM TUBE PO PRN (17:48)
[2019-02-01] MEDS ORDERED: GLUCOSE 10 TABS/TUBE PO PRN (17:48)
[2019-02-01] MEDS ORDERED: CARBOHYDRATES FOR HYPOGLYCEMIA PO PRN (17:48)
[2019-02-01] MEDS ORDERED: POLYETHYLENE (MIRALAX) 17 GM PACK PO PRN (17:48)
[2019-02-01] MEDS ORDERED: NITROGLYCERIN SL 0.4 MG/TAB TAB SL PRN ×2 (17:48)
[2019-02-01] MEDS ORDERED: MAGNESIUM HYDROXIDE SUSP 30 ML UDC PO PRN (17:48)
[2019-02-01] MEDS ORDERED: DEXTROSE 50% 50 ML SYRINGE IV PRN (17:48)
[2019-02-01] MEDS ORDERED: ACETAMINOPHEN 325 MG TAB PO PRN (17:48)
[2019-02-01] MEDS ORDERED: ALUMINUM/MAGNESIUM SUSP 30 ML UDC PO PRN (17:48)
--- NOTE | 2019-02-01 18:25 | Cardiology Consultation ---
Date of Consultation February 01, 2019 Assessment & Plan (1) ST elevation (STEMI) myocardial infarction involving left anterior descending coronary artery: Per history, patient presents the emergency department nearly 48 hours after incident event[address] elevation on ECG likely represent aneurysmal formation involving the left ventricular apex confirmed by dyskinesis of apical segments on 2D transthoracic echocardiogram. Currently pain-free. Recommend intravenous heparin for 48 hours. Will transition from Plavix to Brilinta due to presumed Plavix failure at this time. Agree with titration of carvedilol as tolerated. Will resume lisinopril in a.m. if blood pressure remains stable. Due to late presentation of myocardial infarction there is no urgent indication for cardiac catheterization at this time. We will continue to follow closely during hospitalization and consider repeat catheterization pending clinical course. All questions answered satisfaction both patient and his daughter. (2) CKD (chronic kidney disease), stage III: (3) Dyslipidemia, goal LDL below 70: History of Present Illness Reason for Consultation: Recent myocardial infarction, elevated troponin, abnormal ECG with ST elevation, hypertension, history of CAD with prior LAD stenting Requesting Physician: Dr. Kallie Ramos Attending Physician: Kallie Ramos MD History of Present Illness 68-year-old patient presented to the emergency department per the direction of home nursing due to hypotension. While in the ER patient described episode of left shoulder and arm pain occurring on Friday night. Patient describes significant discomfort which began in the evening. He had been mowing his lawn and noted some shortness of breath which prompted him to stop. When he lie down to sleep, noted significant pain in his left upper arm. The pain radiated to his chest and then to his intrascapular region. Discomfort resolved overnight. He did not use any sublingual nitroglycerin. On Friday he felt very tired with lack of appetite. Ate 1 bowl of soup. Participated in cardiac rehab on Friday without restriction. Patient reports an episode of chest heaviness this morning when getting out of the shower. Reports feeling extremely fatigued. Denies any chest discomfort at rest currently. Denies dyspnea or palpitations. ECG demonstrates anterior ST elevations with new QRS widening and a left bundle branch block pattern. Patient is actually requesting discharge. Offers no other concerns/complaints at this time. Daughter is present at bedside. Allergies Allergy/AdvReac Type Severity Reaction Status Date / Time No Known Allergies Allergy Unverified 09/15/18 11:22 Home Medications Home Medications Medication Instructions Recorded Confirmed Type amlodipine [Norvasc] 2.5 mg PO DAILY 02/01/19 02/01/19 History aspirin [Aspir-Low] 81 mg PO DAILY 02/01/19 02/01/19 History atorvastatin [Lipitor] 80 mg PO QPM 02/01/19 02/01/19 History carvedilol [Coreg] 12.5 mg PO BID 02/01/19 02/01/19 History cholecalciferol (vitamin D3) 2,000 unit PO DAILY 02/01/19 02/01/19 History [Vitamin D3] clopidogrel [Plavix] 75 mg PO DAILY 02/01/19 02/01/19 History empagliflozin [Jardiance] 10 mg PO DAILY 02/01/19 02/01/19 History furosemide [Lasix] 40 mg PO DAILY 02/01/19 02/01/19 History insulin glargine [Lantus U-100 40 unit SUBCUT QPM 02/01/19 02/01/19 History Insulin] lisinopril [Zestril] 20 mg PO DAILY 02/01/19 02/01/19 History nitroglycerin [Nitrostat] 0.4 mg SUBLINGUAL UD PRN 02/01/19 02/01/19 History Patient History Medical History Dyslipidemia, goal LDL below 70 (Chronic) CKD (chronic kidney disease), stage III (Chronic) Diabetes mellitus type II, uncontrolled (Chronic) HTN (hypertension) (Chronic) CAD (coronary artery disease) (Chronic) s/p stent to LAD in Sep 2018 at [facility] [place] NSTEMI (non-ST elevated myocardial infarction) (Resolved) Surgical History Stented coronary artery (Chronic) Hx of tonsillectomy (Resolved) Family History Mother Breast cancer Other Stroke Social History Preferred Language: Liberian Communication Ability: Effective Beliefs That Will Affect Care: None Current Living Situation: Spouse current occupational status: retired Other Information That Helps Us Care for You: No Feels Safe at Home: Yes Safety Concerns: Feels Safe At This Time Smoking Status: Never smoker Second Hand Exposure: No Hx Alcohol Use: No Hx Substance Use: No Review of Systems Review of Systems: All systems reviewed & are unremarkable except as noted in HPI & below Physical Exam Physical Exam: General: NAD, AAO x3, well nourished. HEENT: Normocephalic. Atraumatic. Conjunctiva pink, no scleral icterus. Neck: No carotid bruits, the carotid upstrokes are brisk. No JVD. No HJR Heart: Regular normal S-1 and S-2 no S-3 or S-4 gallop. No murmurs or rub appreciated. PMI is not displaced. No RV heave. Lungs: Clear bilateral without rales , rhonchi, or wheeze. Abdomen: Normal bowel sounds. Soft. Nontender. No masses or organomegaly. No abdominal bruits. Extremities: No clubbing, cyanosis, or edema. Pulses: radial=2/4, Dorsalis pedis =2/4, posterior tibial=2/4. Neuro: Cranial nerves grossly intact . No focal motor deficit. Results & Data Vital Signs (Past 12 Hours) Vital Signs Temp Pulse Pulse Resp BP BP Pulse Ox 02/01/19 17:50 36.8 C 63 18 131/75 100 02/01/19 17:00 60 19 142/75 H 94 02/01/19 16:47 61 64 17 112/74 112/74 95 02/01/19 15:55 64 20 114/73 97 02/01/19 15:29 64 22 136/79 94 02/01/19 15:05 36.8 C 66 18 123/76 96 Laboratory Results Laboratory Results - last 24 hr 02/01/19 02/01/19 02/01/19 15:29 15:29 15:29 WBC 9.61 RBC 4.83 Hgb 14.4 POC Hgb Hct 41.5 L POC Hct MCV 85.9 MCH 29.8 MCHC 34.7 RDW Std Deviation 42.6 RDW Coeff of Saritha 13.5 Plt Count 178 MPV 10.7 H Immature Gran % (Auto) 0.3 Neut % (Auto) 70.8 Lymph % (Auto) 16.0 Rice % (Auto) 12.2 Eos % (Auto) 0.4 Baso % (Auto) 0.3 Immature Gran # (Auto) 0.03 H Neut # (Auto) 6.80 H Lymph # (Auto) 1.54 Rice # (Auto) 1.17 H Eos # (Auto) 0.04 Baso # (Auto) 0.03 PT 10.5 INR 1.0 APTT 27.4 PTT Ratio 1.0 POC Sodium Sodium 135 L POC Potassium Potassium 3.9 POC Chloride Chloride 100 Carbon Dioxide 29 POC Total CO2 Anion Gap 6.0 POC Anion Gap POC BUN BUN 27 H Creatinine 1.61 H POC Creatinine Est Cr Clr Drug Dosing 57.4 Est GFR ( Amer) 50.2 Est GFR (Non-Af Amer) 43.3 BUN/Creatinine Ratio 16.5 Glucose 189 H POC Glucose (other) Calcium 8.7 POC Ioniz Calcium Alma Total Bilirubin 1.3 H AST 99 H ALT 43 Alkaline Phosphatase 67 POC Troponin I Total Protein 7.3 Albumin 3.3 L Globulin 4.0 Albumin/Globulin Ratio 0.8 L Lipase 61 L 02/01/19 02/01/19 15:34 15:37 WBC RBC Hgb POC Hgb 15.6 Hct POC Hct 46 MCV MCH MCHC RDW Std Deviation RDW Coeff of Saritha Plt Count MPV Immature Gran % (Auto) Neut % (Auto) Lymph % (Auto) Rice % (Auto) Eos % (Auto) Baso % (Auto) Immature Gran # (Auto) Neut # (Auto) Lymph # (Auto) Rice # (Auto) Eos # (Auto) Baso # (Auto) PT INR APTT PTT Ratio POC Sodium 137 Sodium POC Potassium 3.9 Potassium POC Chloride 97 L Chloride Carbon Dioxide POC Total CO2 25 Anion Gap POC Anion Gap 20.0 POC BUN 27 H BUN Creatinine POC Creatinine 1.5 H Est Cr Clr Drug Dosing Est GFR ( Amer) Est GFR (Non-Af Amer) BUN/Creatinine Ratio Glucose POC Glucose (other) 202 H Calcium POC Ioniz Calcium [place] 1.14 Total Bilirubin AST ALT Alkaline Phosphatase POC Troponin I 26.01 H Total Protein Albumin Globulin Albumin/Globulin Ratio Lipase
[2019-02-01] MEDS: ATORVASTATIN 40 MG TAB PO SCH (20:19)
[2019-02-01] MEDS: TICAGRELOR 90 MG TAB PO SCH (20:19)
[2019-02-01] MEDS: CARVEDILOL 12.5 MG TAB PO SCH (20:19)
--- NOTE | 2019-02-01 20:22 | Emergency Department Note ---
Entered by Brennen Garg acting as a scribe for Ross Arellano MD History of Present Illness General Chief complaint: Hypotension Stated complaint: HYPOTENSION Source: patient History of Present Illness Onset (ago): day(s) (past few) Location: chest Radiation: back and extremity Pain Consistency: + intermittent Quality: + other (pressure) Associated symptoms: + shortness of breath (associated with the discomfort); no cough, no diaphoresis, no fever/chills and no nausea/vomiting The patient is a 68 year old male who presents to the Emergency Room with complaints of intermittent chest pressure over the past few days. He states that beginning 2-3 days ago he has had intermittent chest pressure with radiation to the left arm and back. He states that normally he has some chest discomfort with exertion, but in the past few days it has developed while just siting. He reports that he most recently had chest discomfort yesterday, but this morning while in the shower he felt like everything was heavy like a 50-pound blanket and was short of breath. He states that he is not currently experiencing any symptoms aside from a little weakness. He states that he becomes short of breath when he has the chest pain but does not become diaphoretic. He denies fevers, coughing, nausea, vomiting, abdominal pain, or leg swelling/pain. The patient reports that he was seen by his home health nurse today and was told that his blood pressure was low. Once he told her about his symptoms she sent him to the ED for evaluation. The patient had a cardiac catheterization in September, and he states that afterward he was sent to [place] for further management, and he had a stent placed. He states that he has been taking all of his medications as prescribed. He notes that he took a baby aspirin this morning. Home Medications Home Medications Medication Instructions Recorded Confirmed Type amlodipine [Norvasc] 2.5 mg PO DAILY 02/01/19 02/01/19 History aspirin [Aspir-Low] 81 mg PO DAILY 02/01/19 02/01/19 History atorvastatin [Lipitor] 80 mg PO QPM 02/01/19 02/01/19 History carvedilol [Coreg] 12.5 mg PO BID 02/01/19 02/01/19 History cholecalciferol (vitamin D3) 2,000 unit PO DAILY 02/01/19 02/01/19 History [Vitamin D3] clopidogrel [Plavix] 75 mg PO DAILY 02/01/19 02/01/19 History empagliflozin [Jardiance] 10 mg PO DAILY 02/01/19 02/01/19 History furosemide [Lasix] 40 mg PO DAILY 02/01/19 02/01/19 History insulin glargine [Lantus U-100 40 unit SUBCUT QPM 02/01/19 02/01/19 History Insulin] lisinopril [Zestril] 20 mg PO DAILY 02/01/19 02/01/19 History nitroglycerin [Nitrostat] 0.4 mg SUBLINGUAL UD PRN 02/01/19 02/01/19 History Allergies Allergy/AdvReac Type Severity Reaction Status Date / Time No Known Allergies Allergy Unverified 09/15/18 11:22 Past Med/Surg History Medical History Dyslipidemia, goal LDL below 70 (Chronic) CKD (chronic kidney disease), stage III (Chronic) Diabetes mellitus type II, uncontrolled (Chronic) HTN (hypertension) (Chronic) CAD (coronary artery disease) (Chronic) s/p stent to LAD in Sep 2018 at [facility] NSTEMI (non-ST elevated myocardial infarction) (Resolved) Surgical History Stented coronary artery (Chronic) Hx of tonsillectomy (Resolved) Family History Mother Breast cancer Other Stroke Social History Preferred Language: Georgian Communication Ability: Effective Beliefs That Will Affect Care: None Current Living Situation: Spouse current occupational status: retired Other Information That Helps Us Care for You: No Feels Safe at Home: Yes Safety Concerns: Feels Safe At This Time Smoking Status: Never smoker Second Hand Exposure: No Hx Alcohol Use: No Hx Substance Use: No Review of Systems See HPI for pertinent positives & negatives. and A total of 10 systems reviewed and were otherwise negative Physical Exam Vital Signs Vital Signs - 24 hr 02/01/19 15:05 02/01/19 15:27 02/01/19 15:29 Temperature 36.8 C Temperature Source Oral Sepsis Recent Fever Within 48 Hours No Sepsis New/Unexplained Change in Mental Status No Sepsis Action Taken by Nursing No Action Required Pulse Rate 66 64 Pulse Rate [Left] Pulse Rhythm Regular Pulse Strength Normal Respiratory Rate 18 22 Respiratory Effort / Characteristics Non-Labored Spontaneous Respiratory Depth Normal Respiratory Pattern Regular Blood Pressure 123/76 136/79 Blood Pressure [Left Arm] Blood Pressure Mean 91 98 Blood Pressure Mean [Left Arm] Blood Pressure Position Sitting Pulse Oximetry 96 100 94 Oxygen Delivery Method Room Air Room Air Room Air 02/01/19 15:55 02/01/19 16:47 02/01/19 17:00 Temperature Temperature Source Sepsis Recent Fever Within 48 Hours Sepsis New/Unexplained Change in Mental Status Sepsis Action Taken by Nursing Pulse Rate 61 60 Pulse Rate [Left] 64 64 Pulse Rhythm Pulse Strength Respiratory Rate 20 17 19 Respiratory Effort / Characteristics Respiratory Depth Respiratory Pattern Blood Pressure 112/74 142/75 H Blood Pressure [Left Arm] 114/73 112/74 Blood Pressure Mean 86 97 Blood Pressure Mean [Left Arm] 86 86 Blood Pressure Position Pulse Oximetry 97 95 94 Oxygen Delivery Method Room Air Room Air Room Air Constitutional: Vital signs reviewed. Eyes: Pupils are equal round reactive to light. Conjunctiva are noninjected. ENT: Pharynx is clear without erythema or exudate. Mucous membranes are moist. Neck supple without meningeal signs. Respiratory: Clear to auscultation bilaterally. Breath sounds are equal bilaterally. Cardiovascular: Regular rate and rhythm. No rubs or gallops. GI: Soft, nondistended and nontender. Bowel sounds are present. Musculoskeletal: No peripheral edema. No lower extremity tenderness. Integumentary: No cyanosis. Neurological: The patient is awake and alert. No focal deficits. Psychiatric: Normal affect. Course 1522: The patient was evaluated in room A2. A complete history and physical examination were performed. 1553: I consulted Dr. Ameena Galaviz Cardiology. He will look at the patients EKG and then call back. 1600: I discussed test results with the patient. He states that he does not have any symptoms currently. 1604: I consulted Dr. Lindquist, who recommends an echo and heparin drip. 1610: I discussed current results and plan with the patient and family. 1612: I consulted Ivis Murillo PA-C: Anast[facility] Hospitalist. The patient will be reevaluated for hospitalization. 1636: The echo is being performed, and the heparin drip has been started. Administered Medications Heparin Sodium/Dextrose (Heparin Sodium/Dextrose) 25,000 units in 500 mls @ 33 mls/hr IV .[id number] [facility]; Protocol Stop: 03/03/19 16:14 Last Titration: 02/01/19 18:59 Dose: 1,650 units/hr, 33 mls/hr Documented by: [id number] Cosigned by: [id number] Admin: 02/01/19 16:28 Dose: 1,650 units/hr, 33 mls/hr Documented by: [id number] Cosigned by: [id number] Discontinued Medications Aspirin (Aspirin Chew) 324 mg PO NOW STA Stop: 02/01/19 16:03 Last Admin: 02/01/19 16:15 Dose: 324 mg Documented by: [id number] Heparin Sodium (Porcine) (Heparin Iv Bolus) 7,000 units IV NOW STA Stop: 02/01/19 16:10 Last Admin: 02/01/19 16:28 Dose: 7,000 units Documented by: [id number] Cosigned by: [id number] Heparin Sodium/Dextrose () 1 ea IV NOW STA; Protocol Stop: 02/01/19 16:03 Last Admin: 02/01/19 16:36 Dose: Not Given Documented by: [id number] Medical Decision Making Differential Diagnosis Differential diagnosis: STEMI, NSTEMI, unstable angina, anxiety, dehydration, aortic dissection Medical Records Attestation: I reviewed the patient's medical records. I did perform a limited focused review of portions of the patient's old chart on the electronic medical record. The patient had a catheterization performed in September, at which time there was severe LAD stenosis, and they were unable to perform PCI. Home Medications Current Medication List: was personally reviewed by me Laboratory Data Attestation: I reviewed the patient's lab results. Result diagrams: 02/01/19 15:29 02/01/19 15:29 Lab Results 02/01/19 02/01/19 02/01/19 Range/Units 15:29 15:29 15:29 WBC 9.61 (4.8-10.8) K/uL RBC 4.83 (4.7-6.1) M/uL Hgb 14.4 (14.0-18.0) g/dL POC Hgb (14.0-18.0) g/dl Hct 41.5 L (42-52) % POC Hct (42-52) % MCV 85.9 (80-100) fL MCH 29.8 (25-34) pg MCHC 34.7 (32-36) g/dL RDW Std Deviation 42.6 (36.4-46.3) fL RDW Coeff of Saritha 13.5 (11.5-14.5) % Plt Count 178 (130-400) K/uL MPV 10.7 H (7.4-10.4) fL Immature Gran % (Auto) 0.3 % Neut % (Auto) 70.8 % Lymph % (Auto) 16.0 % [place] % (Auto) 12.2 % Eos % (Auto) 0.4 % Baso % (Auto) 0.3 % Immature Gran # (Auto) 0.03 H (0.00-0.02) K/uL Neut # (Auto) 6.80 H (1.4-6.5) K/uL Lymph # (Auto) 1.54 (1.2-3.4) K/uL [place] # (Auto) 1.17 H (0.11-0.59) K/uL Eos # (Auto) 0.04 (0-0.5) K/uL Baso # (Auto) 0.03 (0-0.2) K/uL PT 10.5 (9.0-12.0) Seconds INR 1.0 (0.9-1.1) APTT 27.4 (21.0-31.0) Seconds PTT Ratio 1.0 POC Sodium (135-144) mEq/L Sodium 135 L (136-145) mmol/L POC Potassium (3.3-5.0) mEq/L Potassium 3.9 (3.5-5.1) mmol/L POC Chloride (101-112) mEq/L Chloride 100 (98-107) mmol/L Carbon Dioxide 29 (21-32) mmol/L POC Total CO2 (24-31) mEq/l Anion Gap 6.0 (3-11) POC Anion Gap (16-25) mmol/L POC BUN (7-18) mg/dl BUN 27 H (7-18) mg/dl Creatinine 1.61 H (0.6-1.4) mg/dl POC Creatinine (0.6-1.3) mg/dl Est Cr Clr Drug Dosing 57.4 ml/min Est GFR ( Amer) 50.2 Est GFR (Non-Af Amer) 43.3 BUN/Creatinine Ratio 16.5 (10-20) Glucose 189 H (70-99) mg/dl POC Glucose (other) (70-99) mg/dl Calcium 8.7 (8.5-10.1) mg/dl POC Ioniz Calcium [place] (1.12-1.32) mmol/l Total Bilirubin 1.3 H (0.2-1) mg/dl AST 99 H (15-37) U/L ALT 43 (12-78) U/L Alkaline Phosphatase 67 (45-117) U/L POC Troponin I (0-0.045) ng/ml Total Protein 7.3 (6.4-8.2) gm/dl Albumin 3.3 L (3.4-5.0) gm/dl Globulin 4.0 (2.5-4.0) gm/dl Albumin/Globulin Ratio 0.8 L (0.9-2) Lipase 61 L (73-393) U/L Hepatitis C Ab Screen (Neg) 02/01/19 02/01/19 02/01/19 Range/Units 15:30 15:34 15:37 WBC (4.8-10.8) K/uL RBC (4.7-6.1) M/uL Hgb (14.0-18.0) g/dL POC Hgb 15.6 (14.0-18.0) g/dl Hct (42-52) % POC Hct 46 (42-52) % MCV (80-100) fL MCH (25-34) pg MCHC (32-36) g/dL RDW Std Deviation (36.4-46.3) fL RDW Coeff of Saritha (11.5-14.5) % Plt Count (130-400) K/uL MPV (7.4-10.4) fL Immature Gran % (Auto) % Neut % (Auto) % Lymph % (Auto) % [place] % (Auto) % Eos % (Auto) % Baso % (Auto) % Immature Gran # (Auto) (0.00-0.02) K/uL Neut # (Auto) (1.4-6.5) K/uL Lymph # (Auto) (1.2-3.4) K/uL [place] # (Auto) (0.11-0.59) K/uL Eos # (Auto) (0-0.5) K/uL Baso # (Auto) (0-0.2) K/uL PT (9.0-12.0) Seconds INR (0.9-1.1) APTT (21.0-31.0) Seconds PTT Ratio POC Sodium 137 (135-144) mEq/L Sodium (136-145) mmol/L POC Potassium 3.9 (3.3-5.0) mEq/L Potassium (3.5-5.1) mmol/L POC Chloride 97 L (101-112) mEq/L Chloride (98-107) mmol/L Carbon Dioxide (21-32) mmol/L POC Total CO2 25 (24-31) mEq/l Anion Gap (3-11) POC Anion Gap 20.0 (16-25) mmol/L POC BUN 27 H (7-18) mg/dl BUN (7-18) mg/dl Creatinine (0.6-1.4) mg/dl POC Creatinine 1.5 H (0.6-1.3) mg/dl Est Cr Clr Drug Dosing ml/min Est GFR ( Amer) Est GFR (Non-Af Amer) BUN/Creatinine Ratio (10-20) Glucose (70-99) mg/dl POC Glucose (other) 202 H (70-99) mg/dl Calcium (8.5-10.1) mg/dl POC Ioniz Calcium [place] 1.14 (1.12-1.32) mmol/l Total Bilirubin (0.2-1) mg/dl AST (15-37) U/L ALT (12-78) U/L Alkaline Phosphatase (45-117) U/L POC Troponin I 26.01 H (0-0.045) ng/ml Total Protein (6.4-8.2) gm/dl Albumin (3.4-5.0) gm/dl Globulin (2.5-4.0) gm/dl Albumin/Globulin Ratio (0.9-2) Lipase (73-393) U/L Hepatitis C Ab Screen Neg (Neg) Imaging Data Radiologist's Impression: Radiology results as stated below per my review and the radiologist's interpretation: XR chest 1V portable CLINICAL HISTORY: Chest pain. COMPARISON STUDY: Chest radiograph September 15, 2018. FINDINGS: Lung volumes are normal. There is no pneumothorax or pleural effusion. There is no consolidation or evidence for pulmonary edema. There is mild cardiomegaly. IMPRESSION: 1. No acute cardiopulmonary findings. 2. Mild cardiomegaly. Electronically signed by: Chepe Cherry M.D. 02/01/2019 3:58 PM ECG Data Attestation: I personally reviewed and interpreted this ECG as follows: Indication: chest pain Rate (beats per minute): 64 Rhythm: sinus rhythm Findings: + other (no reciprocal changes; poor R wave progression), + 1st degree AV block, + Q waves (septal), + T-wave inversion (high lateral) and + ST elevation (leads V3-V6) Comparison ECG Date: from (09/16/18) Change: the following changes noted (ST elevations are new) Additional Comments: Repeat EKG shows sinus rhythm at 65 bpm with the same findings as the first EKG. Blood Pressure Blood Pressure Findings: Normal blood pressure Blood Pressure Disposition: did not require urgent referral MDM Narrative I was brought a twelve-lead EKG by the triage nurse for evaluation. It was gr ossly abnormal and the patient was immediately brought back to her room. I did evaluate the patient as noted above. IV access was established. The patient was placed on a continuous manager cardiac. I did order and personally review the patient's 12-lead EKG as described above. He has ST elevations in the precordial leads as well as Q waves and T wave inversions. I did repeat another twelve-lead EKG which showed similar findings per my interpretation. These findings are new compared to his last EKG found on the [employer] system in September. Because the patient was not having any symptoms at this time I did not call a heart alert. I did order and review the patient's blood work as noted in the electronic medical record. His troponin was over 26. I immediately called Dr. Cash of cardiology. He did review the EKGs and recommended the patient be placed on IV heparin and admitted. I did order a stat echocardiogram. I did order a heparin drip. I did order and personally reviewed the images of the patient's chest x-ray as described above. There is no evidence of acute abnorm ality. He has mild cardiomegaly. I did treat the patient with 325 mg of aspirin. I did reassess the patient multiple times. He continues to deny any chest discomfort. I did discuss the test results with the patient and his family. I did discuss the case with the hospitalist and employment evaluator/case manager. Impression & Plan Non-ST elevation myocardial infarction (NSTEMI) Critical Care Time Critical Care Time: Yes Total Critical Care Time: 35 I have personally spent 35 minutes of critical care time in the direct management of this patient. This includes bedside care, interpretation of diagnostic studies, and testing, discussion with consultants, patient, and family members, and other required patient management activities. This 35 minutes is in excess of all separately billable procedures. Discharge Plan Visit Data *Final* Discharge Date/Time: 02/01/19 17:30 Chief Complaint: Hypotension Stated Complaint: HYPOTENSION ED Provider: Ross Arellano Discharge Problem: Non-ST elevation myocardial infarction (NSTEMI) Patient Disposition: Admitted As Inpatient Discharge Instructions Interventions: ED Discharge Assessment Last Done: 02/01/19 17:30 The alanibe's documentation has been prepared under my direction and personally reviewed by me in its entirety. I confirm that the note above accurately reflects all work, treatment, procedures, and medical decision making performed by me.
[2019-02-01] MEDS: INSULIN ASPART 100 UNITS/ML 3 ML PEN SC SCH (20:23)
[2019-02-01] MEDS: INSULIN GLARGINE SOLOSTAR 100 UNITS/ML 3 ML PEN SQ SCH (20:24)
[2019-02-01 23:03] LABS: Partial Thromboplastin Ratio 2.6
[2019-02-01 23:08] LABS: Partial Thromboplastin Time 70.7 Seconds (21.0-31.0)
[2019-02-02 03:03] LABS: BUN Creatinine Ratio 22.1 (10-20); Calcium 8.3 mg/dl (8.5-10.1); Est GFR (African American) 66.2; Est GFR (Non-African American) 57.1; Potassium 3.5 mmol/L (3.5-5.1)
[2019-02-02 03:12] LABS: Troponin I 6.8 ng/ml (0-0.045)
[2019-02-02 05:32] LABS: Hemoglobin 13.3 g/dL (14.0-18.0); Mean Platelet Volume 10.2 fL (7.4-10.4); Platelet Count 147 K/uL (130-400); RDW Coefficient of Variation 13.4 % (11.5-14.5); RDW Standard Deviation 41.5 fL (36.4-46.3); Red Blood Count 4.47 M/uL (4.7-6.1); White Blood Count 7.79 K/uL (4.8-10.8)
[2019-02-02 05:57] LABS: Partial Thromboplastin Ratio 2.1
[2019-02-02 06:01] LABS: Partial Thromboplastin Time 57.2 Seconds (21.0-31.0)
[2019-02-02 06:37] LABS: Estimated Average Glucose 200 mg/dl; Hemoglobin A1C 8.6 % (4.5-5.6)
[2019-02-02] MEDS: Heparin Adult STANDARD Wt-Based Dextrose 5% 25,000 units/500 mL IV SCH (07:11)
[2019-02-02] MEDS: CARVEDILOL 12.5 MG TAB PO SCH ×2 (08:31→20:48)
[2019-02-02] MEDS ORDERED: CLOPIDOGREL BISULFATE 75 MG TAB PO SCH (09:00)
[2019-02-02] MEDS ORDERED: ASPIRIN 81 MG ECTAB PO SCH (09:00)
[2019-02-02] MEDS ORDERED: NON-FORMULARY MEDICATION (Cholecalciferol (Vitamin D3) [Vitamin D3] 2,000 UNITS) PO SCH (09:00)
[2019-02-02] MEDS: INSULIN ASPART 100 UNITS/ML 3 ML PEN SC SCH ×4 (09:30→20:50)
[2019-02-02] MEDS: CHOLECALCIFEROL 1,000 UNITS TAB PO SCH (09:31)
--- NOTE | 2019-02-02 10:30 | Cardiology Progress Note ---
Date of Service February 02, 2019 Assessment & Plan (1) ST elevation (STEMI) myocardial infarction involving left anterior desc ending coronary artery: Patient presented to the emergency department with late presentation of LAD territory STEMI. 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 Patient currently pain-free. Plavix transition to Brilinta due to presumed Plavix failure. Lisinopril and amlodipine on hold since admission due to hypotension per home nursing assessment. Recommend restarting lisinopril today. Continue IV heparin. No indication for urgent cardiac catheterization at this time. It appears patient has completed his LAD territory infarct with evidence of apical akinesis to dyskinesis per echocardiogram. Further recommendations pending clinical course. (2) CKD (chronic kidney disease), stage III: (3) Dyslipidemia, goal LDL below 70: Subjective Patient seen and examined at the bedside. No chest or arm discomfort overnight. No dysrhythmias on telemetry. Requesting discharge. Denies orthopnea, PND, or edema. No palpitations, lightheadedness, dizziness, syncope, or near syncope. Offers no concerns/complaints at this time. Review of Systems Review of Systems: All systems reviewed & are unremarkable except as noted in HPI & below Physical Exam Physical Exam: General: NAD, AAO x3, well nourished. HEENT: Normocephalic. Atraumatic. Conjunctiva pink, no scleral icterus. Neck: No carotid bruits, the carotid upstrokes are brisk. No JVD. No HJR Heart: Regular normal S-1 and S-2 no S-3 or S-4 gallop. No murmurs or rub appreciated. PMI is not displaced. No RV heave. Lungs: Clear bilateral without rales , rhonchi, or wheeze. Abdomen: Normal bowel sounds. Soft. Nontender. No masses or organomegaly. No abdominal bruits. Extremities: No clubbing, cyanosis, or edema. Pulses: radial=2/4, Dorsalis pedis =2/4, posterior tibial=2/4. Neuro: Cranial nerves grossly intact. No focal motor deficit. Results & Data Vital Signs (Past 12 Hours) Vital Signs Temp Pulse Pulse Resp BP Pulse Ox 02/02/19 06:49 37.1 C 61 18 147/84 H 95 02/02/19 04:03 36.6 C 56 L 18 127/76 95 02/02/19 00:11 60 02/01/19 23:27 37.0 C 63 16 115/63 95 Laboratory Results Laboratory Results - last 24 hr 02/01/19 02/01/19 02/01/19 15:29 15:29 15:29 WBC 9.61 RBC 4.83 Hgb 14.4 POC Hgb Hct 41.5 L POC Hct MCV 85.9 MCH 29.8 MCHC 34.7 RDW Std Deviation 42.6 RDW Coeff of Saritha 13.5 Plt Count 178 MPV 10.7 H Immature Gran % (Auto) 0.3 Neut % (Auto) 70.8 Lymph % (Auto) 16.0 [place] % (Auto) 12.2 Eos % (Auto) 0.4 Baso % (Auto) 0.3 Immature Gran # (Auto) 0.03 H Neut # (Auto) 6.80 H Lymph # (Auto) 1.54 [place] # (Auto) 1.17 H Eos # (Auto) 0.04 Baso # (Auto) 0.03 PT 10.5 INR 1.0 APTT 27.4 PTT Ratio 1.0 POC Sodium Sodium 135 L POC Potassium Potassium 3.9 POC Chloride Chloride 100 Carbon Dioxide 29 POC Total CO2 Anion Gap 6.0 POC Anion Gap POC BUN BUN 27 H Creatinine 1.61 H POC Creatinine Est Cr Clr Drug Dosing 57.4 Est GFR ( Amer) 50.2 Est GFR (Non-Af Amer) 43.3 BUN/Creatinine Ratio 16.5 Glucose 189 H POC Glucose POC Glucose (other) Estimat Average Glucose Hemoglobin A1c Calcium 8.7 POC Ioniz Calcium [place] Total Bilirubin 1.3 H AST 99 H ALT 43 Alkaline Phosphatase 67 POC Troponin I Troponin I Total Protein 7.3 Albumin 3.3 L Globulin 4.0 Albumin/Globulin Ratio 0.8 L Lipase 61 L Hepatitis C Ab Screen 02/01/19 02/01/19 02/01/19 15:30 15:34 15:37 WBC RBC Hgb POC Hgb 15.6 Hct POC Hct 46 MCV MCH MCHC RDW Std Deviation RDW Coeff of Saritha Plt Count MPV Immature Gran % (Auto) Neut % (Auto) Lymph % (Auto) [place] % (Auto) Eos % (Auto) Baso % (Auto) Immature Gran # (Auto) Neut # (Auto) Lymph # (Auto) [place] # (Auto) Eos # (Auto) Baso # (Auto) PT INR APTT PTT Ratio POC Sodium 137 Sodium POC Potassium 3.9 Potassium POC Chloride 97 L Chloride Carbon Dioxide POC Total CO2 25 Anion Gap POC Anion Gap 20.0 POC BUN 27 H BUN Creatinine POC Creatinine 1.5 H Est Cr Clr Drug Dosing Est GFR ( Amer) Est GFR (Non-Af Amer) BUN/Creatinine Ratio Glucose POC Glucose POC Glucose (other) 202 H Estimat Average Glucose Hemoglobin A1c Calcium POC Ioniz Calcium [place] 1.14 Total Bilirubin AST ALT Alkaline Phosphatase POC Troponin I 26.01 H Troponin I Total Protein Albumin Globulin Albumin/Globulin Ratio Lipase Hepatitis C Ab Screen Neg 02/01/19 02/01/19 02/01/19 20:22 21:10 22:27 WBC RBC Hgb POC Hgb Hct POC Hct MCV MCH MCHC RDW Std Deviation RDW Coeff of Saritha Plt Count MPV Immature Gran % (Auto) Neut % (Auto) Lymph % (Auto) [place] % (Auto) Eos % (Auto) Baso % (Auto) Immature Gran # (Auto) Neut # (Auto) Lymph # (Auto) [place] # (Auto) Eos # (Auto) Baso # (Auto) PT INR APTT 70.7 H* PTT Ratio 2.6 POC Sodium Sodium POC Potassium Potassium POC Chloride Chloride Carbon Dioxide POC Total CO2 Anion Gap POC Anion Gap POC BUN BUN Creatinine POC Creatinine Est Cr Clr Drug Dosing Est GFR ( Amer) Est GFR (Non-Af Amer) BUN/Creatinine Ratio Glucose POC Glucose 241 H POC Glucose (other) Estimat Average Glucose Hemoglobin A1c Calcium POC Ioniz Calcium [place] Total Bilirubin AST ALT Alkaline Phosphatase POC Troponin I Troponin I 7.720 H* Total Protein Albumin Globulin Albumin/Globulin Ratio Lipase Hepatitis C Ab Screen 02/02/19 02/02/19 02/02/19 02:33 04:44 04:44 WBC 7.79 RBC 4.47 L Hgb 13.3 L POC Hgb Hct 38.0 L POC Hct MCV 85.0 MCH 29.8 MCHC 35.0 RDW Std Deviation 41.5 RDW Coeff of Saritha 13.4 Plt Count 147 MPV 10.2 Immature Gran % (Auto) Neut % (Auto) Lymph % (Auto) [place] % (Auto) Eos % (Auto) Baso % (Auto) Immature Gran # (Auto) Neut # (Auto) Lymph # (Auto) [place] # (Auto) Eos # (Auto) Baso # (Auto) PT INR APTT PTT Ratio POC Sodium Sodium 137 POC Potassium Potassium 3.5 POC Chloride Chloride 103 Carbon Dioxide 30 POC Total CO2 Anion Gap 4.0 POC Anion Gap POC BUN BUN 28 H Creatinine 1.28 D POC Creatinine Est Cr Clr Drug Dosing 72.0 Est GFR ( Amer) 66.2 Est GFR (Non-Af Amer) 57.1 BUN/Creatinine Ratio 22.1 H Glucose 144 H POC Glucose POC Glucose (other) Estimat Average Glucose 200 Hemoglobin A1c 8.6 H Calcium 8.3 L POC Ioniz Calcium [place] Total Bilirubin AST ALT Alkaline Phosphatase POC Troponin I Troponin I 6.800 H* Total Protein Albumin Globulin Albumin/Globulin Ratio Lipase Hepatitis C Ab Screen 02/02/19 02/02/19 02/02/19 05:00 07:10 08:56 WBC RBC Hgb POC Hgb Hct POC Hct MCV MCH MCHC RDW Std Deviation RDW Coeff of Saritha Plt Count MPV Immature Gran % (Auto) Neut % (Auto) Lymph % (Auto) [place] % (Auto) Eos % (Auto) Baso % (Auto) Immature Gran # (Auto) Neut # (Auto) Lymph # (Auto) [place] # (Auto) Eos # (Auto) Baso # (Auto) PT INR APTT 57.2 H* PTT Ratio 2.1 POC Sodium Sodium POC Potassium Potassium POC Chloride Chloride Carbon Dioxide POC Total CO2 Anion Gap POC Anion Gap POC BUN BUN Creatinine POC Creatinine Est Cr Clr Drug Dosing Est GFR ( Amer) Est GFR (Non-Af Amer) BUN/Creatinine Ratio Glucose POC Glucose 141 H POC Glucose (other) Estimat Average Glucose Hemoglobin A1c Calcium POC Ioniz Calcium [place] Total Bilirubin AST ALT Alkaline Phosphatase POC Troponin I Troponin I 5.610 H* Total Protein Albumin Globulin Albumin/Globulin Ratio Lipase Hepatitis C Ab Screen
[2019-02-02] MEDS: TICAGRELOR 90 MG TAB PO SCH ×2 (10:32→20:48)
[2019-02-02] MEDS: ASPIRIN 81 MG ECTAB PO SCH (10:32)
--- NOTE | 2019-02-02 16:11 | Hospitalist Progress Note ---
Date of Service February 02, 2019 Assessment & Plan (1) ST elevation (STEMI) myocardial infarction involving left anterior desc ending coronary artery: This is a 68-year-old male with a PMH of recent NSTEMI in Sep 2018 s/p stent, DM II, chronic diastolic heart failure, HLD, obesity and other medical problems listed below who presents with hypotension and was found to have had a STEMI involving the LAD. -Had L arm and chest pain Friday-this morning. Did not take ntg or come to hospital until today. Is currently asymptomatic -EKG with ST elevations in anterior leads, initial POC troponin of 26 -Stat bedside echo performed, revealing new apical akinesis, consistent with LAD territory infarction. EF: 40-45% -Initiated on IV heparin, plan to continue for 48 hours -Appreciate input from cardiology: Presented with late complication of HI No urgent indication for cardiac catheterization at this time due to late presentation of HI Recommend transition from Plavix to Brilinta. (Possible Plavix failure,- progression of atherosclerotic plaque despite being dual antiplatelet) Continue carvedilol and lisinopril Statin treatment (2) Diabetes mellitus type II, uncontrolled: A1c of 8.9 in September 2018. Will repeat -Continue home lantus -SSI while in-patient -BSG AC HS (3) HTN (hypertension): Hypotensive initially but now normotensive -Continue Coreg, Lisinopril -Hold Lasix and amlodipine for now -resumed as per cardiology recommendation (4) CKD (chronic kidney disease), stage III: Acute renal failure in setting of CKD stage III, possible secondary to acute HI/hypotensive episode Cr of 1.61 currently (baseline ~1.4) Lasix kept on hold, continue to monitor BMP (5) Dyslipidemia, goal LDL below 70: Continue high dose statin DVT Ppx: Continue IV heparin Code status: DNR per discussion with patient PCP: Sun Dispo: Expected to be discharged home when medically stable Subjective Patient feels fine, no complaint of shortness of breath, no chest pain no chest heaviness, no dyspnea on exertion Does not feel anything out of ordinary On IV heparin drip Discussion with patient regarding activities: Patient has his own burn, takes care of his horse, shovels sawdust moves large heavy boxes Patient is counseled, given recent HI with significant ischemic cardiomyopathy Strenuous activity compromise coronary circulation further-can lead to arrhythmia/decompensated CHF Patient can continue with his daily activity with brisk walking Should not be moving/lifting heavy objects Needs to take frequent rest with any event of shortness of breath or chest Patient is agreeable Physical Exam Constitutional: WD/WN, vitals as above well developed; no acute distress Eyes: PERRL, conjunctivae normal, anicteric sclerae ENMT: external ear and nose normal, oropharynx normal Neck: trachea midline, no thyromegaly Respiratory: normal respiratory effort, lungs clear to auscultation Cardiovascular: RRR, no murmur, no edema Gastrointestinal (Abdomen): normal bowel sounds, soft, nontender, no hepatosplenomegaly Musculoskeletal: no cyanosis or clubbing, extremities motor strength 5/5 Skin: no rashes, warm and dry Neurologic: PERRL, EOMI, accommodation nl, no face palsy, no dysarthria Psychiatric: A+Ox3, euthymic affect Results & Data Vital Signs (Past 12 Hours) Vital Signs Temp Pulse Pulse Resp BP Pulse Ox 02/02/19 15:23 36.7 C 59 L 18 137/79 95 02/02/19 11:11 36.3 C L 62 20 145/64 H 99 02/02/19 08:00 59 L 02/02/19 06:49 37.1 C 61 18 147/84 H 95
--- NOTE | 2019-02-02 17:12 | Hospitalist Progress Note ---
Date of Service February 02, 2019 Subjective Attending addendum: Patient's creatinine improved to baseline 1.2 Blood pressure remains stable Lisinopril 20 mg daily resumed Repeat BMP in a.m. Kallie Ramos MD Results & Data Vital Signs (Past 12 Hours) Vital Signs Temp Pulse Pulse Resp BP Pulse Ox 02/02/19 15:23 36.7 C 59 L 18 137/79 95 02/02/19 11:11 36.3 C L 62 20 145/64 H 99 02/02/19 08:00 59 L 02/02/19 06:49 37.1 C 61 18 147/84 H 95
[2019-02-02] MEDS: LISINOPRIL 20 MG TAB PO SCH (18:52)
[2019-02-02] MEDS: ATORVASTATIN 40 MG TAB PO SCH (20:48)
[2019-02-02] MEDS: INSULIN GLARGINE SOLOSTAR 100 UNITS/ML 3 ML PEN SQ SCH (20:49)
[2019-02-03] MEDS: Heparin Adult STANDARD Wt-Based Dextrose 5% 25,000 units/500 mL IV SCH (00:49)
[2019-02-03 05:58] LABS: Hematocrit (blood only) 36.6 % (42-52); Hemoglobin 12.7 g/dL (14.0-18.0); Mean Corpuscular Hgb Conc 34.7 g/dL (32-36); Mean Corpuscular Volume 84.1 fL (80-100); Mean Platelet Volume 10.2 fL (7.4-10.4); Platelet Count 161 K/uL (130-400); RDW Coefficient of Variation 13.4 % (11.5-14.5); RDW Standard Deviation 41.2 fL (36.4-46.3); Red Blood Count 4.35 M/uL (4.7-6.1); White Blood Count 6.55 K/uL (4.8-10.8)
[2019-02-03 06:18] LABS: Partial Thromboplastin Ratio 1.9
[2019-02-03 06:28] LABS: Partial Thromboplastin Time 50.5 Seconds (21.0-31.0)
[2019-02-03 06:35] LABS: BUN Creatinine Ratio 20.5 (10-20); Calcium 8.6 mg/dl (8.5-10.1); Creatinine Clr Calc Pharmacy 72.1 ml/min; Est GFR (African American) 67.5; Est GFR (Non-African American) 58.2; Potassium 3.5 mmol/L (3.5-5.1)
--- NOTE | 2019-02-03 08:43 | Hospitalist Progress Note ---
Date of Service February 03, 2019 Assessment & Plan (1) ST elevation (STEMI) myocardial infarction involving left anterior desc ending coronary artery: Patient presented to the ER with late presentation of LAD territory STEMI. Medically managed for now per cardiology -On IV Heparin -Plavix transitioned to Brilinta due to presumed Plavix failure. -Continue with aspirin -Lisinopril and amlodipine on hold since admission due to hypotension per home nursing assessment. Restarted Lisinopril on 02/02 -Troponin peaked to 7.20; EKG- anterior CA -Appreciate cardiology inputs Present on Admission?: Yes (2) CKD (chronic kidney disease), stage III: Near baseline -Stable (3) Diabetes mellitus type II, uncontrolled: -Insulin Lantus 40 units q HS -ISS, Accuchecks -HBA1C- 8.6 -Needs tighter control outpatient (4) HTN (hypertension): Stable -Held amlodipine on admission, Restarted Lisinopril on 02/02/19 (5) Dyslipidemia, goal LDL below 70: -Continue with atorvastatin 80 mg q HS -Lipid panel in AM DVT PROPHYLAXIS -IV Heparin DISPOSITION Medical mx in progress Eager to be discharged Awaiting cardiology inputs Subjective Patient denies any chest pain episodes. No shortness of breath, palpitations. Did take a walk around and felt a little weak but no exertional dyspnea or chest pain. No leg swelling, fever, chills, cough. Eager to be discharged Physical Exam Physical Exam: GENERAL- AAOX3, No acute distress, OBESE + LUNGS- Air entry bilaterally equal. No rales, rhonchi, crackles, wheezes heard. HEART- Regular rate and rhythm. No murmurs ABDOMEN- Soft, non tender, non distended, Bowel sounds heard. EXTREMITIES- Good peripheral pulses, no edema Results & Data Vital Signs (Past 12 Hours) Vital Signs Temp Pulse Pulse Resp BP Pulse Ox 02/03/19 07:13 36.8 C 62 18 135/83 95 02/03/19 04:18 36.9 C 60 16 104/64 95 02/02/19 23:44 62 02/02/19 23:30 36.6 C 61 16 110/68 98
[2019-02-03] MEDS: TICAGRELOR 90 MG TAB PO SCH (08:54)
[2019-02-03] MEDS: CARVEDILOL 12.5 MG TAB PO SCH (08:54)
[2019-02-03] MEDS: LISINOPRIL 20 MG TAB PO SCH (08:54)
[2019-02-03] MEDS: CHOLECALCIFEROL 1,000 UNITS TAB PO SCH (08:54)
[2019-02-03] MEDS: ASPIRIN 81 MG ECTAB PO SCH (08:54)
[2019-02-03] MEDS: INSULIN ASPART 100 UNITS/ML 3 ML PEN SC SCH ×2 (10:55→12:10)
--- NOTE | 2019-02-03 12:19 | Cardiology Progress Note ---
Date of Service February 03, 2019 Assessment & Plan (1) ST elevation (STEMI) myocardial infarction involving left anterior desc ending coronary artery: Patient presented to the emergency department with late presentation of LAD territory STEMI. 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 Pain- free since admission. No signs/symptoms of decompensated heart failure. Amlodipine discontinued secondary to hypotension. Diuretics on hold since admission secondary to acute renal insufficiency. Plavix transition to Brilinta due to presumed Plavix failure. Discontinue IV heparin. Amlodipine will not be restarted at time of discharge. Resume Lasix at a reduced dosing schedule, 40 mg on Friday, Friday, and Friday. Close cardiology follow-up scheduled next . Patient instructed to avoid strenuous activity and will not resume cardiac rehab until follow-up appointment next week. (2) CKD (chronic kidney disease), stage III: (3) Dyslipidemia, goal LDL below 70: Subjective Patient seen and examined at the bedside. Denies chest pain or unusual shortness of breath. No orthopnea or paroxysmal nocturnal dyspnea. No dysrhythmias on telemetry. Requesting discharge if possible. Creatinine has trended downward to baseline. Amlodipine and diuretics on hold since admission. Clopidogrel transition to Brilinta due to presumed Plavix failure. Review of Systems Review of Systems: All systems reviewed & are unremarkable except as noted in HPI & below Physical Exam Physical Exam: General: NAD, AAO x3, obese. HEENT: Normocephalic. Atraumatic. Conjunctiva pink, no scleral icterus. Neck: No carotid bruits, the carotid upstrokes are brisk. No JVD. No HJR Heart: Regular normal S-1 and S-2 no S-3 or S-4 gallop. No murmurs or rub appreciated. PMI is not displaced. No RV heave. Lungs: Clear bilateral without rales , rhonchi, or wheeze. Abdomen: Normal bowel sounds. Soft. Nontender. No masses or organomegaly. No abdominal bruits. Extremities: No clubbing, cyanosis, or edema. Pulses: radial=2/4, Dorsalis pedis =2/4, posterior tibial=2/4. Neuro: Cranial nerves grossly intact. No focal motor deficit. Results & Data Vital Signs (Past 12 Hours) Vital Signs Temp Pulse Pulse Resp BP Pulse Ox 02/03/19 10:46 37.1 C 61 18 139/80 95 02/03/19 08:00 60 02/03/19 07:13 36.8 C 62 18 135/83 95 02/03/19 04:18 36.9 C 60 16 104/64 95 Laboratory Results Laboratory Results - last 24 hr 02/02/19 02/02/19 02/03/19 16:53 20:14 05:44 WBC 6.55 RBC 4.35 L Hgb 12.7 L Hct 36.6 L MCV 84.1 MCH 29.2 MCHC 34.7 RDW Std Deviation 41.2 RDW Coeff of Saritha 13.4 Plt Count 161 MPV 10.2 APTT PTT Ratio Sodium Potassium Chloride Carbon Dioxide Anion Gap BUN Creatinine Est Cr Clr Drug Dosing Est GFR ( Amer) Est GFR (Non-Af Amer) BUN/Creatinine Ratio Glucose POC Glucose 124 H 139 H Calcium 02/03/19 02/03/19 02/03/19 05:44 05:44 07:11 WBC RBC Hgb Hct MCV MCH MCHC RDW Std Deviation RDW Coeff of Saritha Plt Count MPV APTT 50.5 H* PTT Ratio 1.9 Sodium 138 Potassium 3.5 Chloride 105 Carbon Dioxide 27 Anion Gap 7.0 BUN 26 H Creatinine 1.26 Est Cr Clr Drug Dosing 72.1 Est GFR ( Amer) 67.5 Est GFR (Non-Af Amer) 58.2 BUN/Creatinine Ratio 20.5 H Glucose 115 H POC Glucose 131 H Calcium 8.6 02/03/19 11:22 WBC RBC Hgb Hct MCV MCH MCHC RDW Std Deviation RDW Coeff of Saritha Plt Count MPV APTT PTT Ratio Sodium Potassium Chloride Carbon Dioxide Anion Gap BUN Creatinine Est Cr Clr Drug Dosing Est GFR ( Amer) Est GFR (Non-Af Amer) BUN/Creatinine Ratio Glucose POC Glucose 150 H Calcium
--- NOTE | 2019-02-03 13:20 | Discharge Summary ---
Date of Service February 03, 2019 Admission HPI Per Admitting Provider This is a 68-year-old male with a PMH of recent NSTEMI in Sep 2018 s/p stent, DM II, chronic diastolic heart failure, HLD, obesity and other medical problems listed below who presents with hypotension. Started to have left arm pain on Friday that moved to his chest on Friday. Was associated with shortness of breath but denies diaphoresis, nausea or vomiting. Had a decreased appetite for the past 3 days. Yesterday and today pain moved to neck and in between shoulder blades. Patient is a [facility] at home patient and had a routine visit today. Patient mentioned pain and was also found to be hypotensive with BP of 80s/50s. Sent to ED for further evaluation. Found to be hemodynamically stable. However, initial POC troponin elevated at 26. EKG with evidence of ST changes to anterolateral leads. Stat echo performed at bedside, report pending. Patient currently asymptomatic. Denies chest pain or shoulder pain. Denies fever, chills, headache, lightheadedness, cough, chest pain, palpitations, shortness of breath, abdominal pain, nausea, vomiting, dysuria, constipation or diarrhea. Principal Diagnosis 1. STEMI , anterior involving LAD, medically managed SECONDARY DIAGNOSIS ON DISCHARGE 1. CKD III 2. Dyslipidemia 3. HTN Discharge Exam GENERAL- AAOX3, No acute distress, OBESE + LUNGS- Air entry bilaterally equal. No rales, rhonchi, crackles, wheezes heard. HEART- Regular rate and rhythm. No murmurs ABDOMEN- Soft, non tender, non distended, Bowel sounds heard. EXTREMITIES- Good peripheral pulses, no edema Discharge Data Allergies Allergy/AdvReac Type Severity Reaction Status Date / Time No Known Allergies Allergy Unverified 09/15/18 11:22 Consultations 02/01/19 16:13 ED Decision to Admit Stat 02/01/19 17:48 Consult Cardiology Routine Hospital Course (1) ST elevation (STEMI) myocardial infarction involving left anterior descending coronary artery: Patient presented to the ER with late presentation of LAD territory STEMI. EKG- LV apical aneurysm Medically managed for now per cardiology -S/P IV Heparin - discontinued today -Plavix transitioned to Brilinta due to presumed Plavix failure. -Continue with aspirin 81 mg daily, atorvastatin 80 mg q HS -Lisinopril and amlodipine on hold since admission due to hypotension per home nursing assessment. Restarted Lisinopril on 02/02. Continue to hold amlodipine on discharge per cardiology recommendations -Troponin peaked to 7.20; EKG- anterior CA -Echo EF 40-45%, moderate size wall motion abnormality involving the apical lateral wall, apical anterior wall, apex, mid and apical septum with hypokinesis to dyskinesis of the segments. Grade 1 diastolic dysfunction -Appreciate cardiology inputs. Cleared for discharge- close follow up next (2) CHF (congestive heart failure): ECHO- EF 40-45%, Gd I diastolic dysfunction No signs of CHF exacerbation -Lasix was held due to elevated creatinine. Restart at reduced dose 40 mg on Friday, Friday, Friday instead of 40 mg daily (3) CKD (chronic kidney disease), stage III: Baseline- 1.4-1.5 -Near baseline (4) Diabetes mellitus type II, uncontrolled: -Insulin Lantus 40 units q HS -ISS, Accuchecks -HBA1C- 8.6 -Needs tighter control outpatient (5) HTN (hypertension): Stable -Discontinued amlodipine on admission (continue to hold on dc per cardiology recommendations), Reduced dose of lasix to 40 mg MWF from 40 mg daily. Restarted Lisinopril on 02/02/19 (6) Dyslipidemia, goal LDL below 70: -Continue with atorvastatin 80 mg q HS -Goal LDL < 70 DVT PROPHYLAXIS -IV Heparin- discontinued now DISPOSITION Eager to be discharged Cleared by cardiology for discharge with close follow-up on . Strictly instructed the patient to avoid strenuous activity until next follow-up appointment with cardiology. Patient understands and agrees to comply. Total Time Total Time Spent Total Time Spent (In Minutes): 40 minutes Discharge Plan Discharge Items Patient Disposition: Home - Self-Care Reason For Visit: CHEST PAIN/NSTEMI Discharge Diagnosis: STEMI - Heart attack Discharge Goals: Improve disease control Activity: As commented below Activity Comment: AVOID STRENOUS ACTIVITY TILL YOU SEE CARDIOLOGY DURING NEXT APPOINTMENT Sexual Activity: Wait until after follow-up appointment Exercise/Sports: None Exercise Comment: AVOID ANY TYPE OF STRENOUS ACTIVITY TILL EVALUATED BY CARDIOLOGY -next appt Non-emergency contact: Primary Care Provider and [facility] Call non-emergency contact if: your symptoms worsen Follow-up/Referrals: Ross Lindquist DO [[facility]] - 02/11/19 1:00 pm John Garsia MD [Primary Care Provider] - 02/10/19 12:45 pm Diet: Carb Consistent or DM2, Heart Healthy and Low Sodium (2gm) Fluids: 1800ml (7 cups) Addtl Provider Instructions: MEDICATION CHANGES 1. Plavix changed to Brilinta 90 mg PO BID 2. Reduce dose of lasix to 40 mg to Fri, Fri, Friday from daily dosing If develop chest pain, shortness of breath call cardiology or come to ED immediately. Avoid any type of strenous activity till you see cardiology during next appt Prescriptions: New Brilinta 90 mg Tablet 90 mg PO BID 30 Days Qty: 60 RF: 0 Continued atorvastatin [Lipitor] 80 mg tablet 80 mg PO QPM RF: 0 carvedilol [Coreg] 6.25 mg tablet 12.5 mg PO BID RF: 0 Lantus U-100 Insulin 100 unit/mL solution 40 unit subcut QPM RF: 0 lisinopril [Zestril] 20 mg tablet 20 mg PO DAILY RF: 0 aspirin [Aspir-Low] 81 mg Tablet,Delayed Release (Dr/Ec) 81 mg PO DAILY RF: 0 nitroglycerin [Nitrostat] 0.4 mg Tablet, Sublingual 0.4 mg sublingual UD PRN (Reason: Chest Pain) RF: 0 cholecalciferol (vitamin D3) [Vitamin D3] 2,000 unit Tablet 2,000 unit PO DAILY RF: 0 Jardiance 10 mg tablet 10 mg PO DAILY RF: 0 Changed furosemide [Lasix] 40 mg tablet 40 mg PO UD Qty: 0 RF: 0 Discontinued amlodipine [Norvasc] 2.5 mg tablet 2.5 mg PO DAILY RF: 0 clopidogrel [Plavix] 75 mg tablet 75 mg PO DAILY RF: 0 Stand-Alone Forms: [employer] [facility]/Other Patient Handouts: Heart Attack Dc, Heart Attack Exercise After, Heart Attack Living Well After Discharge Orders: Discharge Order (Routine); Ordered 02/03/19 Ordered By: Kath Zapata Admission Data Admit Date/Time: 02/01/19 17:04 Attending Provider: Kath Zapata Admit Provider: Kallie Ramos Primary Care Provider: John Garsia Other Providers: Kallie Ramos ; Valentin Deshpande ; Sid Arceo ; Maxx Arteaga ; Ross Lindquist ; Mariano Gresham ; Germain Kinsey ; Molly Cantu ; Jasmin Cagle Service: Telemetry
== END 2019-02-03 15:05 | disposition home or self-care (01) | DRG 281 ==
LOC: ED 15:02 → SUATTDRO 17:04 → 2S 17:04
DX: Z68.41 Body mass index [BMI] 40.0-44.9, adult; Z95.5 Presence of coronary angioplasty implant and graft; E11.22 Type 2 diabetes mellitus with diabetic chronic kidney disease; Z79.899 Other long term (current) drug therapy; Z79.82 Long term (current) use of aspirin; I25.2 Old myocardial infarction; E66.9 Obesity, unspecified; I95.9 Hypotension, unspecified; Z79.02 Long term (current) use of antithrombotics/antiplatelets; E78.5 Hyperlipidemia, unspecified; I21.02 ST elevation (STEMI) myocardial infarction involving left anterior descending coronary artery; I13.0 Hypertensive heart and chronic kidney disease with heart failure and stage 1 through stage 4 chronic kidney disease, or unspecified chronic kidney disease; N18.3 Chronic kidney disease, stage 3 (moderate); Z51.81 Encounter for therapeutic drug level monitoring; I50.32 Chronic diastolic (congestive) heart failure; I25.10 Atherosclerotic heart disease of native coronary artery without angina pectoris; Z79.4 Long term (current) use of insulin

== ENCOUNTER 2019-04-26 06:40 | Observation (INO) ==
--- NOTE | 2019-04-26 07:14 | History & Physical Report ---
Date of Service April 26, 2019 Assessment & Plan (1) Abnormal nuclear stress test: (2) CAD (coronary artery disease), [place] coronary artery: (3) CKD (chronic kidney disease), stage III: Risks, benefits, and alternatives to cardiac catheterization discussed with patient and he is agreeable to proceed. History of Present Illness Chief Complaint: SOB, CAD, abnormal nuclear stress test Primary Care Provider: John Garsia MD 68 year old patient with h/o LAD PC 08/2018 and recent late presentation of LAD territory [place] 01/2019. Nuclear stress reveals apical infarction with jose manuel-infarct ischemia of the septum. Patient c/o WHITE without CP. Allergies Allergy/AdvReac Type Severity Reaction Status Date / Time No Known Allergies Allergy Unverified 09/15/18 11:22 Home Medications Home Medications Medication Instructions Recorded Confirmed Type Jardiance 10 mg PO DAILY 02/01/19 04/26/19 History Lantus U-100 Insulin 44 unit SUBCUT QPM 02/01/19 04/26/19 History aspirin [Aspir-Low] 81 mg PO DAILY 02/01/19 04/26/19 History atorvastatin [Lipitor] 80 mg PO QPM 02/01/19 04/26/19 History carvedilol [Coreg] 12.5 mg PO BID 02/01/19 04/26/19 History cholecalciferol (vitamin D3) 2,000 unit PO DAILY 02/01/19 04/26/19 History [Vitamin D3] lisinopril [Zestril] 20 mg PO DAILY 02/01/19 04/26/19 History nitroglycerin [Nitrostat] 0.4 mg SUBLINGUAL UD PRN 02/01/19 04/26/19 History furosemide [Lasix] 40 mg PO UD #0 tab 02/03/19 04/26/19 Rx metformin 500 mg PO BID 04/26/19 04/26/19 History sacubitril-valsartan [Entresto] 1 tab PO BID 04/26/19 04/26/19 History ticagrelor [Brilinta] 90 mg PO BID 04/26/19 04/26/19 History Past Med/Surg History Medical History Dyslipidemia, goal LDL below 70 (Chronic) CKD (chronic kidney disease), stage III (Chronic) Diabetes mellitus type II, uncontrolled (Chronic) HTN (hypertension) (Chronic) CAD (coronary artery disease) (Chronic) s/p stent to LAD in Sep 2018 at [facility] NSTEMI (non-ST elevated myocardial infarction) (Resolved) Surgical History Stented coronary artery (Chronic) Hx of tonsillectomy (Resolved) Family History Mother Breast cancer Other Stroke Social History Preferred Language: Syrian Communication Ability: Effective 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 HEENT: Normocephalic. Atraumatic. Conjunctiva pink, no scleral icterus. Neck: No carotid bruits, the carotid upstrokes are brisk. No JVD. No HJR Heart: Regular normal S-1 and S-2 no S-3 or S-4 gallop. No murmurs or rub appreciated. PMI is not displaced. No RV heave. Lungs: Clear bilateral without rales , rhonchi, or wheeze. Abdomen: Normal bowel sounds. Soft. Nontender. No masses or organomegaly. No abdominal bruits. Extremities: No clubbing, cyanosis, or edema. Pulses: radial=2/4, Dorsalis pedis =2/4, posterior tibial=2/4. Neuro: Cranial nerves grossly intact. No focal motor deficit.
[2019-04-26] MEDS ORDERED: HEPARIN (PORCINE) 1000 UNIT/ML 10 ML (CATH LAB USE ONLY) ONE (07:49)
[2019-04-26] MEDS ORDERED: NiCARDipine HCL INJ 2.5 MG/ML 10 ML AMP ONE (07:49)
[2019-04-26] MEDS ORDERED: fentaNYL citrate 100 MCG/2 ML VIAL ONE (07:49)
[2019-04-26] MEDS ORDERED: MIDAZOLAM HCL 1 MG/ML 2ML VIAL ONE ×2 (07:49→09:09)
[2019-04-26] MEDS ORDERED: NITROGLYCERIN/D5W 100MCG/ML 20ML SYR ONE (07:50)
--- NOTE | 2019-04-26 09:22 | Pre Anesthesia Assessment ---
Date of Service April 26, 2019 Pre Sedation Assessment Vital Signs Temp Pulse Resp BP Pulse Ox 04/26/19 07:06 36.6 C 60 16 199/100 H 98 Cardiovascular RRR, no murmur, no edema Respiratory normal respiratory effort, lungs clear to auscultation Pre-Sedation Airway Assessment Smoking Status: Never smoker Short, Thick Neck: Yes Thyromental Distance: < 3.5 Finger Breadths Oral Cavity: + WNL Mallampati Class: III ASA: ASA3 NPO Status Date of Last Intake of Fluids: 04/25/19 Time of Last Intake of Fluids: 19:00 Date of Last Intake of Solid Food: 04/25/19 Time of Last Intake of Solid Foods: 19:00 Procedure Planning Contraindications for Sedation: none Current Medications Reviewed: Yes Notes The planned sedation has been discussed with the patient. Informed Consent was obtained. I have identified the patient, determined the appropriateness of sedation and have assessed the patient immediately prior to the procedure. All medicine(s) and interventions are by my order.
--- NOTE | 2019-04-26 09:22 | Post Anesthesia Assessment ---
Date of Service April 26, 2019 Post Sedation Assessment Vital Signs Temp Pulse Resp BP Pulse Ox 04/26/19 07:06 36.6 C 60 16 199/100 H 98 Recovery Score Activity: Moves 4 extremities Respiration: Deep Breath/Cough Circulation: +/-20% PreAnes Value Consciousness: Fully Awake Oxygen Saturation: > 92% On Room Air Post Sedation Plan On clinical assessment, the patient appears to have tolerated the sedation without complications. Patient is recovering as anticipated. Patient will continue to be monitored by nursing and may be discharged when sedation discharge criteria are met per below protocol. Upon Completions of procedure and additional 15 minutes continue every 5 minute vital signs and the P.A.R. score; then discharge to a Phase I or Fast Track to Phase II per the following guidelines: * Discharge Patient to appropriate Phase II area if PAR is 8 or greater or return to pre- procedure baseline. The post - procedure orders will be as directed. * If PAR score is less than 8 or not return to pre-procedure baseline then patient will follow Phase I monitoring till PAR is reached for Phase II. The Phase I may be done in procedure room or may call to secure a Phase I area. * If naloxone or flumazenil are used for reversal, hold in Phase I for continued monitoring from when last reversal dose was given for a minimum of 60 minutes or longer pending the nurse and/or physician discretion of patient condition before discharge to Phase II. Please call the Sedation Physician to re-evaluate and complete post-note for discharge to Phase II area. Do NOT discharge from procedure sedation or Phase 1 until post- sedation evaluation note is complete by procedure /sedation MD Sedation Discharge Instructions to be given to the patient at discharge to home.
--- NOTE | 2019-04-26 09:39 | Cardiac Catheterization ---
Cardiac Cath Procedure Full Procedure Date April 26, 2019 Pre-Procedure Diagnosis Pre-Procedure Diagnosis: Positive Stress Test, CAD, CHF and Cardiomyopathy AUC Score AUC Score: 8 Post-Procedure Diagnosis Post-Procedure Diagnosis: Severe CAD Procedure(s) Performed Procedure(s) Performed: Coronary Angiography, PTCA and Fractional Flow Homer Manager Pricing Ross Lindquist DO Government Service Executive(s) Bessie TALENT ACQUISITION ASSISTANT Estimated Blood Loss Estimated Blood Loss: 10cc Medication(s) Medication(s): Fentanyl, Heparin, Lidocaine 1%, Nicardipine, Nitroglycerin and Versed Summary of Findings 90% mid OM1 100% proximal LAD in stent stenosis Hemodynamics Rest Ao:: 83/58/70 Final Ao: 130/66/92 LV: 125/2/9 Recommendations Recommendations: PCI without planned CABG Specimens Specimens: None Radiation Exposure (mGy) 1955 Contrast (mls) 70cc Fluids (cc crystalloids) Fluids (cc crystalloids): 275cc Nss Anesthesia Moderate Sedation. Start 0836. End 0907. 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 in mechanical laboratory technician for PCI OM [facility] Data: Interactive Account Manager Cardiac Status Clinical evaluation leading to the procedure CAD Presenation: Positive Stress Test and Stable angina Anginal Classification: CCS II Heart Failure: NYHA Class: CCS II Imaging Studies Past 6 Months: Yes Stress Studies Past 6 Months: Yes Stress Testing w/SPECT MPI: Yes - Positive and Risk/Extent of Ischemia (High) Coronary Anatomy Dominant: Right Left Main (% Stenosis): Mid (10%, mild calcification) and Distal (20% taper) LAD (% Stenosis): Proximal (100% in stent, mid to distal vessel with AUSTYN 1 flow, severe, 80% ostial septal brake repairer railroad stensosis x2) D1 (% Stenosis): Ostial (40%, small vessel) and Mid (70%, small vessel, 1mm diameter) D2 (% Stenosis): Mid (30-40% diffuse, small vessel) Circumflex (% Stenosis): Ostial (60%), Mid (50% distal to origin of OM1) and Distal (20% diffuse) OM1 (% Stenosis): Mid (90%) RCA (% Stenosis): Proximal (10%), Mid (10%) and Distal (20%) R PDA (% Stenosis): Mid (20% diffuse) and Distal (20% diffuse) R PL1 (% Stenosis): Mid (10-20% diffuse, small vessel) R PL2 (% Stenosis): Mid (10-20% diffuse, small vessel) Diagnostic Physicians Name: Ross Lindquist DO Status: Elective Closure Device Percutaneous Entry Location: Radial Closure Device: Radial Band Recommendations: PCI without planned CABG Intraprocedure Events Significant Disection: No Perforation: No
[2019-04-26] MEDS ORDERED: MAGNESIUM HYDROXIDE SUSP 30 ML UDC PO PRN (09:45)
[2019-04-26] MEDS ORDERED: ACETAMINOPHEN 325 MG TAB PO PRN (09:45)
[2019-04-26] MEDS ORDERED: NITROGLYCERIN SL 0.4 MG/TAB TAB SL PRN ×2 (09:45→10:26)
[2019-04-26] MEDS ORDERED: ONDANSETRON INJ 2 MG/ML 2 ML VIAL IV PRN ×2 (09:45→10:24)
--- NOTE | 2019-04-26 10:10 | Post Anesthesia Assessment ---
Date of Service April 26, 2019 Post Sedation Assessment Vital Signs Temp Pulse Resp BP Pulse Ox 04/26/19 07:06 97.9 F 60 16 199/100 H 98 Recovery Score Activity: Moves 4 extremities Respiration: Deep Breath/Cough Circulation: +/-20% PreAnes Value Consciousness: Fully Awake Oxygen Saturation: O2 needed for >90% Discharge Sedation Level of Care: Fast Track Phase II Post Sedation Plan On clinical assessment, the patient appears to have tolerated the sedation without complications. Patient is recovering as anticipated. Patient will continue to be monitored by nursing and may be discharged when sedation discharge criteria are met per below protocol. Upon Completions of procedure and additional 15 minutes continue every 5 minute vital signs and the P.A.R. score; then discharge to a Phase I or Fast Track to Phase II per the following guidelines: * Discharge Patient to appropriate Phase II area if PAR is 8 or greater or return to pre- procedure baseline. The post - procedure orders will be as directed. * If PAR score is less than 8 or not return to pre-procedure baseline then patient will follow Phase I monitoring till PAR is reached for Phase II. The Phase I may be done in procedure room or may call to secure a Phase I area. * If naloxone or flumazenil are used for reversal, hold in Phase I for continued monitoring from when last reversal dose was given for a minimum of 60 minutes or longer pending the nurse and/or physician discretion of patient condition before discharge to Phase II. Please call the Sedation Physician to re-evaluate and complete post-note for discharge to Phase II area. Do NOT discharge from procedure sedation or Phase 1 until post- sedation evaluation note is complete by procedure /sedation MD Sedation Discharge Instructions to be given to the patient at discharge to home.
--- NOTE | 2019-04-26 10:24 | Cardiac Catheterization ---
[facility] Data: Client Executive Cardiac Status Clinical evaluation leading to the procedure CAD Presenation: Positive Stress Test Anginal Classification: CCS III Heart Failure: No Cardiogenic Shock within 24 Hours: No Cardiac Arrest within 24 Hours: No Imaging Studies Past 6 Months: Yes Stress Studies Past 6 Months: Yes Stress Testing w/SPECT MPI: Yes - Positive Diagnostic Physicians Name: Fredo Silver MD Status: Elective Closure Device Percutaneous Entry Location: Radial Closure Device: Radial Band Recommendations: PCI without planned CABG PCI Indication: + Stress Test Lesion Segment Name: mid OM1 Culprit Artery: Yes Stenosis Prior to Rx (%): 90 Chronic Total Occlusion: No IVUS: No FFR: No Pre-Procedure AUSTYN Flow: 3 Previously Treated Lesion: No Lesion Complexity: Non-High/Non-C Lesion Length (mm): 15 Thrombus Present: No Bifurcation Lesion: No Guidewire Across Lesion: Stenosis Post-Procedure (%): 60 Post-Procedure AUSTYN Flow: 3 Devices(s) Deployed: No Yes Intraprocedure Events Significant Disection: No Perforation: No Cardiac Cath Procedure Full Procedure Date April 26, 2019 Pre-Procedure Diagnosis Pre-Procedure Diagnosis: Positive Stress Test, CAD, CHF and Cardiomyopathy AUC Score AUC Score: 8 Post-Procedure Diagnosis Post-Procedure Diagnosis: Severe CAD and Unsuccessful PCI Procedure(s) Performed Procedure(s) Performed: Coronary Angiography and PTCA Shoulder Boner Fredo Silver MD Supervisor Asbestos Textile(s) Bessie CHIU Estimated Blood Loss Estimated Blood Loss: 10cc Medication(s) Medication(s): Heparin Summary of Findings 90% mid OM1 100% proximal LAD in stent stenosis Indication: Accelerating angina, abnormal stress test Access: 6 Fr right radial artery Catheters: EBU 3.5 guide, guide liner Findings: For full details of patient's coronary angiography please cath report dictated by Dr. Lindquist. Briefly, patient found to have severe multivessel disease including an occluded mid LAD and a 90% stenosis involving the mid OM1. Decision to proceed with PCI to OM1. -- PCI -- Antithrombotic therapy: Heparin Procedure: Left main cannulated with EBU 3.5 guide Whisper wire passed across lesion into distal vessel Logan BMW wire placed into distal vessel Mid OM1 lesion predilated with 2.5 compliant balloon Attempted to deliver a 3.0 x 18 mm Joseph drug-eluting stent to the lesion but unable to pass despite logan wire, guideliner Post procedure AUSTYN-3 flow in vessel, residual stenosis 60%. No change to ostial circumflex disease Arterial Closure: TR band Summary: 1. Unsuccessful POBA of mid OM1 due to inability to deliver stent to dilated lesion secondary to ostial disease, heavy mid segment calcification. Residual stenosis after POBA with 2.5 balloon 60%. Recommendations: To PCU for continued monitoring Continue dual-antiplatelet therapy with aspirin, ticagrelor indefinitely Continue statin, and ASCVD risk factor modification Plan to maximize antianginal therapy. If refractory symptoms consider repeat attempt at PCI with likely atherectomy versus bypass surgery. Hemodynamics Rest Ao:: 142/65/95 Final Ao: 176/83/77 LV: -- Recommendations Recommendations: PCI without planned CABG Specimens Specimens: None Radiation Exposure (mGy) 5319 Contrast (mls) 170 Fluids (cc crystalloids) Fluids (cc crystalloids): 320 Drains Drains: none Anesthesia Moderate Sedation Procedural Complication(s) None Disposition PCU
[2019-04-26] MEDS ORDERED: DEXTROSE 50% 50 ML SYRINGE IV PRN (10:28)
[2019-04-26] MEDS ORDERED: GLUCAGON FOR INJ 1 MG VIAL SQ PRN (10:28)
[2019-04-26] MEDS ORDERED: CARBOHYDRATES FOR HYPOGLYCEMIA PO PRN (10:28)
[2019-04-26] MEDS ORDERED: GLUCOSE 40% GEL 15 GM TUBE PO PRN (10:28)
[2019-04-26] MEDS ORDERED: ISOSORBIDE MONO EXTENDED REL 30 MG TABCR PO ONE (10:28)
[2019-04-26] MEDS ORDERED: GLUCOSE 10 TABS/TUBE PO PRN (10:28)
[2019-04-26] MEDS ORDERED: SODIUM CHLORIDE 0.9% 1000ML 1,000 ML IV SCH (10:30)
[2019-04-26] MEDS: INSULIN ASPART 100 UNITS/ML 3 ML PEN SC SCH ×3 (11:26→20:37)
[2019-04-26] MEDS: CARVEDILOL 12.5 MG TAB PO SCH (20:35)
[2019-04-26] MEDS: TICAGRELOR 90 MG TAB PO SCH (20:36)
[2019-04-26] MEDS: SACUBITRIL-VALSARTAN 24-26 MG TAB PO SCH (20:36)
[2019-04-26] MEDS ORDERED: ATORVASTATIN 40 MG TAB PO SCH (21:00)
[2019-04-26] MEDS ORDERED: INSULIN GLARGINE SOLOSTAR 100 UNITS/ML 3 ML PEN SC SCH (21:00)
[2019-04-27 04:55] LABS: Basophils # (auto) 0.03 K/uL (0-0.2); Basophils % (auto) 0.5 %; Eosinophils # (auto) 0.22 K/uL (0-0.5); Eosinophils % (auto) 3.3 %; Hematocrit (blood only) 37.5 % (42-52); Hemoglobin 12.6 g/dL (14.0-18.0); Immature Granulocytes # (auto) 0.02 K/uL (0.00-0.02); Immature Granulocytes % (auto) 0.3 %; Lymphocytes # (auto) 1.35 K/uL (1.2-3.4); Lymphocytes % (auto) 20.5 %; Mean Corpuscular Hgb Conc 33.6 g/dL (32-36); Mean Corpuscular Volume 86.6 fL (80-100); Mean Platelet Volume 10.3 fL (7.4-10.4); Monocytes # (auto) 0.56 K/uL (0.11-0.59); Monocytes % (auto) 8.5 %; Neutrophils % (auto) 66.9 %; Platelet Count 167 K/uL (130-400); RDW Coefficient of Variation 14.7 % (11.5-14.5); RDW Standard Deviation 46.6 fL (36.4-46.3); Red Blood Count 4.33 M/uL (4.7-6.1); White Blood Count 6.58 K/uL (4.8-10.8)
[2019-04-27 05:26] LABS: Calcium 7.8 mg/dl (8.5-10.1); Creatinine Clr Calc Pharmacy 94.7 ml/min; Est GFR (African American) 91.4; Est GFR (Non-African American) 78.9; Potassium 3.5 mmol/L (3.5-5.1)
[2019-04-27] MEDS: INSULIN ASPART 100 UNITS/ML 3 ML PEN SC SCH ×2 (07:42→12:52)
[2019-04-27] MEDS: TICAGRELOR 90 MG TAB PO SCH (07:44)
[2019-04-27] MEDS: SACUBITRIL-VALSARTAN 24-26 MG TAB PO SCH (07:44)
[2019-04-27] MEDS: CARVEDILOL 12.5 MG TAB PO SCH (07:44)
[2019-04-27] MEDS ORDERED: ISOSORBIDE MONO EXTENDED REL 30 MG TABCR PO SCH (09:00)
[2019-04-27] MEDS ORDERED: ASPIRIN 81 MG ECTAB PO SCH (09:00)
[2019-04-27] MEDS ORDERED: LISINOPRIL 20 MG TAB PO SCH (09:00)
[2019-04-27] MEDS ORDERED: FUROSEMIDE 40 MG TAB PO ONE (12:20)
[2019-04-27] MEDS ORDERED: POTASSIUM CHLORIDE 20 MEQ TABCR PO STA (12:20)
--- NOTE | 2019-04-27 12:20 | Cardiology Progress Note ---
Date of Service April 27, 2019 Assessment & Plan (1) CAD (coronary artery disease), [place] coronary artery: cardiac cath findings again reviewed with Mr. Lorenzo and now and daughter as well explained options of medical therapy vs. CABG and it was decided to opt for medical therapy imdur added, can increase as an outpatient other antianginal options include: increasing beta alicia dose, addition of amlodipine and Ranexa will follow up closely as an outpatient my office will arrange outpatient f/u in 2 weeks also will restart cardiac rehab restrictions reviewed along with need for medication compliance will cont current doses of coreg, lasix, Brilinta, Entresto, aspirin and a torvastatin (2) Ischemic cardiomyopathy: cont previous outpatient medication regimen Subjective Pt seen and examined, states that he feels terrific. Denies cp, sob, palpitations, lightheadedness or dizziness. Tolerating addition imdur without issue. Spoke on the phone with patient's and daughter for over 15 minutes discussing cath findings, results and prognosis along with therapy. Tele reviewed: sinus rhythm without arrhythmia or significant ectopy. Review of Systems Review of Systems: All systems reviewed & are unremarkable except as noted in HPI & below Physical Exam Physical Exam: General: Awake, alert and oriented x 3. No acute distress. HEENT: Normocephalic, atraumatic. Pupils equal, round and reactive to light and accommodation. Extraocular muscles are intact. Anicteric sclera. Moist mucous membranes. Neck: No JVD. No bruit. Cardiovascular: Regular. Positive S-4. Normal S-1 and S-2. No S-3. No murmurs or rubs. Pulmonary: Clear to auscultation B/L. No rales, rhonchi or wheezing Abdomen: Bowel sounds x 4, soft. No rebound, guarding or tenderness. No organomegaly. Extremities: No clubbing, cyanosis or edema. +2 pedal pulses bilaterally. Skin: Warm and dry. Results & Data Vital Signs (Past 12 Hours) Vital Signs Temp Pulse Resp BP Pulse Ox 04/27/19 08:00 65 19 04/27/19 07:52 36.8 C 65 20 153/85 H 96 04/27/19 07:00 61 13 04/27/19 06:45 62 6 L 04/27/19 05:41 36.5 C 63 15 154/78 H 94
--- NOTE | 2019-04-27 12:31 | Discharge Summary ---
Date of Service April 27, 2019 Admission HPI Per Admitting Provider 68 year old patient with h/o LAD PC 08/2018 and recent late presentation of LAD territory PR 01/2019. Nuclear stress reveals apical infarction with jose manuel-infarct ischemia of the septum. Patient c/o WHITE without CP. Principal Diagnosis time spent discussing with family members. Discharge Exam General: Awake, alert and oriented x 3. No acute distress. HEENT: Normocephalic, atraumatic. Pupils equal, round and reactive to light and accommodation. Extraocular muscles are intact. Anicteric sclera. Moist mucous membranes. Neck: No JVD. No bruit. Cardiovascular: Regular. Positive S-4. Normal S-1 and S-2. No S-3. No murmurs or rubs. Pulmonary: Clear to auscultation B/L. No rales, rhonchi or wheezing Abdomen: Bowel sounds x 4, soft. No rebound, guarding or tenderness. No organomegaly. Extremities: No clubbing, cyanosis or edema. +2 pedal pulses bilaterally. Skin: Warm and dry. Discharge Data Allergies Allergy/AdvReac Type Severity Reaction Status Date / Time No Known Allergies Allergy Unverified 09/15/18 11:22 Procedures Performed Operation Date: 04/26/19 08:00 Actual Procedures s Cineradiography w/Routine Exam - Ross Lindquist DO s Cath, Left with Cors and Vent - Ross Lindquist DO p POBA SGL Vessel - Sal Silver MD Ordered Studies 04/26/19 06:27 CL Cath Imgs for PACS use only Routine Hospital Course (1) CAD (coronary artery disease), [place] coronary artery: cardiac cath findings again reviewed with Mr. Lorenzo and now and daughter as well explained options of medical therapy vs. CABG and it was decided to opt for medical therapy imdur added, can increase as an outpatient other antianginal options include: increasing beta alicia dose, addition of amlodipine and Ranexa will follow up closely as an outpatient my office will arrange outpatient f/u in 2 weeks also will restart cardiac rehab restrictions reviewed along with need for medication compliance will cont current doses of coreg, lasix, Brilinta, Entresto, aspirin and atorva statin (2) Ischemic cardiomyopathy: cont previous outpatient medication regimen Total Time Total Time Spent Total Time Spent (In Minutes): 60 Total Time Includes: Examination of the Patient, Medication Reconciliation and O ther Discharge Plan Discharge Items Patient Disposition: Home - Self-Care Reason For Visit: Abnormal Nuclear Stress, WHITE Discharge Diagnosis: coronary artery disease Discharge Goals: Decrease discomfort Activity: Resume your previous activity Sexual Activity: When tolerated Exercise/Sports: Gradually increase as tolerated Driving/Machine Use: No limitations Non-emergency contact: Primary Care Provider Call non-emergency contact if: you have any medication questions Follow-up/Referrals: John Garsia MD [Primary Care Provider] - Diet: Carb Consistent or DM2 Addtl Provider Instructions: ACTIVITY RECOMMENDATIONS: Excess manipulation of the wrist should be avoided for the next 24-48 hours. * No lifting over 2 pounds (approximately a 1/2 gallon of milk) with the utilized arm for 24 hours. * No strenuous activity such as bowling or tennis for 3 days. * Keep the site of the procedure covered with a bandage for 24 hours. *You may shower the day after the procedure. Do not take a tub bath or submerge the puncture site in water for the next 3 days. *Do not operate any motorized equipment for 3 days. SPECIAL CARE INSTRUCTIONS: The site may be slightly bruised and sore following your procedure. Should any of the following occur, contact the Dr. who performed your procedure. 1. Redness/inflammation, swelling, chills, or fever, or colored drainage at procedure site within 3-7 days after your procedure. 2. Coldness, discoloration, ongoing numbness, severe pain, or swelling. Expect mild tingling of hand and tenderness at the puncture site for up to three days. If this persists beyond three days, or other symptoms develop, notify the Dr. who performed your procedure. BLEEDING: If the procedure site on your wrist begins to bleed, do not panic 1. Place 1 or 2 fingers firmly just slightly above the insertion site to stop the bleeding. You may be able to feel your pulse as you hold pressure. 2. Lift your finger after 5 minutes to see if the bleeding has stopped. 3. Once the bleeding has stopped, gently wipe the wrist area clean with a bandage. * If the bleeding from your wrist does not stop after 10 minutes, or if there is a large amount of bleeding or spurting, call 911 ([address] drive yourself to the hospital). SKIN IRRITATION: * You may experience some redness and/or swelling in the area where radiation was administered. If any skin irritation occurs, please contact your family physician. FOLLOW UP VISIT: Keep any scheduled doctor appointments. Prescriptions: New isosorbide mononitrate 30 mg Tablet Extended Release 24 Hr 30 mg PO QAM Qty: 30 RF: 0 Continued atorvastatin [Lipitor] 80 mg tablet 80 mg PO QPM RF: 0 carvedilol [Coreg] 6.25 mg tablet 12.5 mg PO BID RF: 0 Lantus U-100 Insulin 100 unit/mL solution 44 unit subcut QPM RF: 0 aspirin [Aspir-Low] 81 mg Tablet,Delayed Release (Dr/Ec) 81 mg PO DAILY RF: 0 nitroglycerin [Nitrostat] 0.4 mg Tablet, Sublingual 0.4 mg sublingual UD PRN (Reason: Chest Pain) RF: 0 cholecalciferol (vitamin D3) [Vitamin D3] 2,000 unit Tablet 2,000 unit PO DAILY RF: 0 Jardiance 10 mg tablet 10 mg PO DAILY RF: 0 furosemide [Lasix] 40 mg tablet 40 mg PO UD Qty: 0 RF: 0 metformin 500 mg Tablet 500 mg PO BID RF: 0 Brilinta 90 mg Tablet 90 mg PO BID RF: 0 Entresto 24-26 mg Tablet 1 tab PO BID RF: 0 Discontinued lisinopril [Zestril] 20 mg tablet 20 mg PO DAILY RF: 0 Stand-Alone Forms: [facility] Discharge Orders: Discharge Order (Routine); Ordered 04/27/19 Ordered By: Valentin Deshpande Admission Data Admit Date/Time: 04/26/19 09:46 Attending Provider: Valentin Deshpande Admit Provider: Ross Lindquist Primary Care Provider: John Garsia Service: Telemetry
== END 2019-04-27 16:50 | disposition home or self-care (01) ==
LOC: 1E 06:40 → CC 06:40

== ENCOUNTER 2021-12-08 21:28 | Observation (INO) ==
[2021-12-08 22:15] LABS: INR 1.1 (0.9-1.1); Partial Thromboplastin Ratio 1.1; Partial Thromboplastin Time 31.6 Seconds (21.0-31.0); Prothrombin Time 11.6 Seconds (9.0-12.0)
[2021-12-08 22:16] LABS: Basophils # (auto) 0.02 K/uL (0-0.2); Basophils % (auto) 0.5 %; Eosinophils # (auto) 0.21 K/uL (0-0.5); Eosinophils % (auto) 4.8 %; Hematocrit (blood only) 34.5 % (42-52); Hemoglobin 11.2 g/dL (14.0-18.0); Lymphocytes # (auto) 1.04 K/uL (1.2-3.4); Lymphocytes % (auto) 23.6 %; Mean Corpuscular Hemoglobin 27.3 pg (25-34); Mean Corpuscular Hgb Conc 32.5 g/dL (32-36); Mean Corpuscular Volume 83.9 fL (80-100); Monocytes # (auto) 0.44 K/uL (0.11-0.59); Neutrophils # (auto) 2.69 K/uL (1.4-6.5); Neutrophils % (auto) 61.1 %; Platelet Count 198 K/uL (130-400); RDW Coefficient of Variation 17.1 % (11.5-14.5); Red Blood Count 4.11 M/uL (4.7-6.1)
[2021-12-08 22:24] LABS: Albumin Globulin Ratio 1.1 (0.9-2); Albumin Level 3.5 gm/dl (3.4-5.0); BUN Creatinine Ratio 14.1 (10-20); Bilirubin,Total 0.4 mg/dl (0.2-1.0); Calcium 7.9 mg/dl (8.5-10.1); Creatinine Clr Calc Pharmacy 47.4 ml/min; Est GFR (African American) 41.8 ml/min; Est GFR (Non-African American) 36.1 ml/min; Globulin 3.3 gm/dl (2.5-4.0); Potassium 4.1 mmol/L (3.5-5.1); Total Protein 6.8 gm/dl (6.0-8.3)
[2021-12-08 22:27] LABS: Troponin I High Sensitivity 27.5 pg/ml (0-20)
[2021-12-08] MEDS ORDERED: ALBUMIN 25% 12.5 GM/50 ML VIAL IV ONE (23:59)
[2021-12-09 00:41] LABS: Thyroid Stimulating Hormone 6.976 uIu/ml (0.300-4.500)
--- NOTE | 2021-12-09 00:51 | History & Physical Report ---
Date of Service December 09, 2021 Assessment & Plan (1) Syncope: Plan: Recurrent syncope Underlying orthostasis Rule out malignant tachyarrhythmia, symptomatic bradycardia as causative factor Asymptomatic troponin elevation in the setting of elevated blood pressure and abnormal kidney function chronic systolic heart failure secondary to ischemic cardiomyopathy (EF 45 to 49%, TTE 2021), equivocal volume status, some congestion on CXR with some deterioration in baseline kidney function hx CAD status CABG status post stent, Paroxysmal atrial flutter status post cardioversion on Eliquis, patient currently bradycardic and in junctional rhythm history of out of hospital cardiac arrest status post ROSC (10/2021) hypertension, slightly elevated hyperlipidemia, on statin Rx COPD as per records, patient with cough symptoms without respiratory distress currently Pulmonary hypertension as per records DM2 insulin requiring, reasonable control as of recent hemoglobin A1c of 7.21 October 2021 Left groin lump (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 Arceo aware of patient admission. He recommends holding all antihypertensives for now.) Hold Amiodarone for now until patient seen by cardiology given resting bradycardia. Follow troponin Baseline UA, monitor creatinine sponsor 1 dose of albumin given congestion Outpatient vascular surgery consultation for abnormal LLE ultrasound Supportive management for viral bronchitis symptoms. Basal insulin, ISS BG goal 1 10-1 40, carb count coverage DVT prophylaxis. Eliquis Full code Patient daughter requesting updates from providers. Ms. Molly Lorenzo, contact #[phone]. Text document was generated using [employer] voice recognition software. It may contain grammatical or spelling errors. Kindly contact undersigned for clarification of any documentation item in question. History of Present Illness Chief Complaint: Recurrent syncope Primary Care Provider: John Garsia MD History obtained from patient, family, and records. Medical history significant for chronic systolic heart failure secondary to ischemic cardiomyopathy (EF 45 to 49%, TTE 2021), CAD status CABG status post stent, paroxysmal atrial flutter status post cardioversion on Eliquis, history of cardiac arrest, hypertension, hyperlipidemia, COPD as per records, pulmonary hypertension as per records, DM2 insulin requiring, CRI (baseline creatinine 1.6-1.7), history of orthostatic hypotension, chronic anemia (baseline hemoglobin 10-11). Last confinement [facility] [place] November 14 to November 23, 2021 for [id number] cardiac arrest (PEA versus narrow complex tachycardia) status post CPR/intubation after transfer from [facility] ER. 2D echo during confinement showed EF of 45 to 49%. Patient Coreg switched to Toprol-XL due to low blood pressure. Patient Coumadin changed to Eliquis. Outpatient Zio patch recommended by administrative services coordinator. Patient seen on follow-up visit with [facility] administrative services coordinator 4 days ago. Patient noted nonpainful lump on left groin. Patient to continue Zio patch monitor until further recommendations from EPS as per documentation. Nonvascular left lower extremity ultrasound ordered for left groin lump. Patient noted cough symptoms productive of clear sputum 2 days ago. No fever, no chills. sick with pneumonia at home. Patient completed COVID-19 vaccination. 2 days ago patient had a syncopal event at the entryway of a local [facility] clinic for his outpatient ultrasound study. Patient remembers being lightheaded prior to event. No chest pain, no SOB, no witnessed seizures. Patient was out for about 10 seconds as per daughter. SBP 90s as per clinic note. 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 Occlusion of the greater saphenous vein distal to this level. Surgical consultation is suggested. Patient had been dealing with dizziness noted on getting up too quick since CABG surgery last July 2021 as per patient. Patient advised to get up from bed very slowly. Patient subsequently transported to [facility] ER for evaluation as per cardiology communication with outpatient provider. Patient actually hypertensive during monitoring at the ER. Outpatient Vascular Surgery consultation for evaluation of abnormal leg ultrasound as per specialist recommendation as per ER provider note. Yesterday afternoon at the yard, patient had another syncopal event preceded by lightheadedness witnessed by his daughter. No headache, no chest pain, no SOB, no witnessed seizures. Patient was out for about 10 seconds. SBP 70 to 90s at home. Patient brought to the ER by EMS. 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 Allergies Allergy/AdvReac Type Severity Reaction Status Date / Time No Known Allergies Allergy Verified 12/08/21 22:30 Home Medications Medication Instructions Recorded Confirmed Type atorvastatin 80 mg tablet (Lipitor) 80 mg PO QAM 02/01/19 12/08/21 History cholecalciferol (vitamin D3) 50 2,000 unit PO DAILY 02/01/19 12/08/21 History mcg (2,000 unit) tablet (Vitamin D3) insulin glargine 100 unit/mL 44 unit SUBCUT HS 02/01/19 12/08/21 History subcutaneous solution (Lantus U-100 Insulin) nitroglycerin 0.4 mg sublingual 0.4 mg SUBLINGUAL UD PRN 02/01/19 12/08/21 History tablet (Nitrostat) apixaban 5 mg tablet (Eliquis) 5 mg PO AMHS 06/07/21 12/08/21 History albuterol sulfate 0.63 mg/3 mL 0.63 mg INHALATION Q6 PRN 12/07/21 12/08/21 History solution for nebulization amiodarone 200 mg tablet 100 mg PO QAM 12/07/21 12/08/21 History aspirin 81 mg tablet,delayed 81 mg PO DAILY 12/07/21 12/08/21 History release (Aspirin Low Dose) cyanocobalamin (vitamin B-12) 500 500 mcg PO DAILY 12/07/21 12/08/21 History mcg tablet (Vitamin B-12) docusate sodium 100 mg capsule 100 mg PO BID 12/07/21 12/08/21 History ezetimibe 10 mg tablet 10 mg PO DAILY 12/07/21 12/08/21 History famotidine 20 mg tablet 20 mg PO DAILY 12/07/21 12/08/21 History ferrous sulfate 325 mg (65 mg 325 mg PO DAILY 12/07/21 12/08/21 History iron) tablet folic acid 800 mcg tablet 0.8 mg PO DAILY 12/07/21 12/08/21 History metoprolol succinate 25 mg 12.5 mg PO QAM 12/07/21 12/08/21 History tablet,extended release 24 hr sacubitril 49 mg-valsartan 51 mg 1 tab PO AMHS 12/07/21 12/08/21 History tablet (Entresto) sennosides 8.6 mg capsule (senna) 8.6 mg PO DAILY PRN 12/07/21 12/08/21 History tamsulosin 0.4 mg capsule 0.4 mg PO QAM 12/07/21 12/08/21 History torsemide 20 mg tablet 20 mg PO QAM 12/07/21 12/08/21 History Past Med/Surg History Medical History Atrial fibrillation CAD (coronary artery disease) s/p stent to LAD in Sep 2018 at [facility]; follows with Dr. 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 Dyslipidemia, goal LDL below 70 HTN (hypertension) IDDM (insulin dependent diabetes mellitus) Morbid obesity NSTEMI (non-ST elevated myocardial infarction) 2018 Surgical History History of cardiac catheterization 04/2019 - [place] - + stress - unsuccessful PCI; + angioplasty; 90% mid OM1 100% proximal LAD in stent stenosis; severe CAD; pt opted for medical management over CABG 09/2018 - 1 stent - [facility] (scanned) History of cataract surgery LEFT History of colonoscopy History of vitrectomy Hx of tonsillectomy Stented coronary artery Family History Mother Breast cancer Other Stroke Social History Smoking Status: Never smoker Tobacco Type: Cigarettes Second Hand Exposure: No; Do You Dip or Chew Tobacco: No; Hx Alcohol Use: No Hx Substance Use: No Preferred Language: Arabic Communication Ability: Effective Butcher Supervisor Required: No Beliefs That Will Affect Care: None Current Living Situation: Spouse Current Living Situation Comment: house current occupational status: retired Other Information That Helps Us Care for You: No Feels Safe at Home: Yes Safety Concerns: Feels Safe At This Time Assistive Devices: None and Glasses Review of Systems Review of Systems: As per HPI, all other systems reviewed and negative Physical Exam 2 Physical Exam: GENERAL: Comfortable, pleasant, morbidly obese, no respiratory distress SKIN: Pallor, warm HEENT: Pale palpebral conjunctivae, no ptosis, moist buccal mucosa NECK : Supple, short neck, no tenderness CHEST : Decreased breath sounds , no tenderness HEART : Bradycardic, no obvious murmurs ABDOMEN: Some distention, nontender EXTREMITIES : Minimal LE swelling, no LE tenderness, no other conspicuous deformities noted NEUROLOGIC : Coherent, no facial asymmetry, no other gross focality Results & Data Results & Data ([facility]) Vital Signs (Past 12 Hours) Vital Signs Temp Pulse Pulse Resp BP BP Pulse Ox 12/08/21 23:31 54 L 18 171/80 H 96 12/08/21 21:37 36.8 C 55 L 18 139/72 94 Laboratory Results Laboratory Results WBC 4.40 K/uL (4.8-10.8) L 12/08/21 21:44 RBC 4.11 M/uL (4.7-6.1) L 12/08/21 21:44 Hgb 11.2 g/dL (14.0-18.0) L 12/08/21 21:44 Hct 34.5 % (42-52) L 12/08/21 21:44 MCV 83.9 fL (80-100) 12/08/21 21:44 MCH 27.3 pg (25-34) 12/08/21 21:44 MCHC 32.5 g/dL (32-36) 12/08/21 21:44 RDW Std Deviation 52.0 fL (36.4-46.3) H 12/08/21 21:44 RDW Coeff of Saritha 17.1 % (11.5-14.5) H 12/08/21 21:44 Plt Count 198 K/uL (130-400) 12/08/21 21:44 MPV 10.0 fL (7.4-10.4) 12/08/21 21:44 Immature Gran % (Auto) 0.0 % 12/08/21 21:44 Neut % (Auto) 61.1 % 12/08/21 21:44 Lymph % (Auto) 23.6 % 12/08/21 21:44 [place] % (Auto) 10.0 % 12/08/21 21:44 Eos % (Auto) 4.8 % 12/08/21 21:44 Baso % (Auto) 0.5 % 12/08/21 21:44 Neut # (Auto) 2.69 K/uL (1.4-6.5) 12/08/21 21:44 Lymph # (Auto) 1.04 K/uL (1.2-3.4) L 12/08/21 21:44 [place] # (Auto) 0.44 K/uL (0.11-0.59) 12/08/21 21:44 Eos # (Auto) 0.21 K/uL (0-0.5) 12/08/21 21:44 Baso # (Auto) 0.02 K/uL (0-0.2) 12/08/21 21:44 Immature Gran # (Auto) 0.00 K/uL (0.00-0.02) 12/08/21 21:44 PT 11.6 Seconds (9.0-12.0) 12/08/21 21:44 INR 1.1 (0.9-1.1) 12/08/21 21:44 APTT 31.6 Seconds (21.0-31.0) H 12/08/21 21:44 PTT Ratio 1.1 12/08/21 21:44 Sodium 137 mmol/L (136-145) 12/08/21 21:44 Potassium 4.1 mmol/L (3.5-5.1) 12/08/21 21:44 Chloride 101 mmol/L (98-107) 12/08/21 21:44 Carbon Dioxide 29 mmol/L (21-32) 12/08/21 21:44 Anion Gap 7 (3-11) 12/08/21 21:44 BUN 26 mg/dl (6-23) H 12/08/21 21:44 Creatinine 1.84 mg/dl (0.6-1.4) H 12/08/21 21:44 Est Cr Clr Drug Dosing 47.4 ml/min 12/08/21 21:44 Est GFR ( Amer) 41.8 ml/min 12/08/21 21:44 Est GFR (Non-Af Amer) 36.1 ml/min 12/08/21 21:44 BUN/Creatinine Ratio 14.1 (10-20) 12/08/21 21:44 Glucose 118 mg/dl (70-99(Fasting)) H 12/08/21 21:44 Calcium 7.9 mg/dl (8.5-10.1) L 12/08/21 21:44 Magnesium 1.5 mg/dl (1.7-2.4) L 12/08/21 22:32 Total Bilirubin 0.4 mg/dl (0.2-1.0) 12/08/21 21:44 AST 19 U/L (13-39) 12/08/21 21:44 ALT 27 U/L (7-52) 12/08/21 21:44 Alkaline Phosphatase 93 U/L (34-104) 12/08/21 21:44 Troponin I High Sens 25.7 pg/ml (0-20) H 12/08/21 22:32 Total Protein 6.8 gm/dl (6.0-8.3) 12/08/21 21:44 Albumin 3.5 gm/dl (3.4-5.0) 12/08/21 21:44 Globulin 3.3 gm/dl (2.5-4.0) 12/08/21 21:44 Albumin/Globulin Ratio 1.1 (0.9-2) 12/08/21 21:44 Lipase 15 U/L (11-82) 12/08/21 21:44 TSH 6.976 uIu/ml (0.300-4.500) H 12/08/21 22:32 SARS-CoV-2, RNA, NAAT NEGATIVE (NEGATIVE) 12/08/21 21:57 Diagnostic Findings Chest x-ray as per my interpretation: Elevated right hemidiaphragm, cardiomegaly, minimal asymmetric pulmonary congestion EKG as per my interpretation : Rate 55, junctional rhythm, normal axis, PVCs (1) Syncope Syncope type: unspecified Qualified Code(s): R55 - Syncope and collapse
[2021-12-09] MEDS ORDERED: MAGNESIUM SULFATE / D5W 1 GM/100 ML BAG IV STA (00:56)
[2021-12-09 01:19] LABS: T4 Free Thyroxine 0.94 ng/dl (0.61-1.60)
[2021-12-09] MEDS: MAGNESIUM SULFATE / D5W 1 GM/100 ML BAG IV SCH ×2 (01:30→03:30)
--- NOTE | 2021-12-09 02:05 | Emergency Department Note ---
History of Present Illness General Chief complaint: Syncope Stated complaint: Syncope Time Seen by Provider: 12/08/21 21:45 Source: patient, EMS, RN notes reviewed, old records reviewed and other (Dr. Dawson who called in ahead of time) Mode of arrival: EMS Limitations: no limitations History of Present Illness This patient is a 71-year-old male who has a significant cardiac history, comes in after of a syncopal episode. He had one yesterday and was seen here and had another [address] Dawson called ahead of time was concerned as the patient did have cardiac arrest on November 14 and was flown to tertiary care center. He was found to have an EF of 40% with an scar and aneurysm and so he would be at risk for V. tach. The patient is asymptomatic when I see him he said that he feels lightheaded when he stands up. He has been try to stand up slowly. This happened around 3 or 4:00 today where he stood up and he waited a second but then took a step and he felt funny and he fell lower. Not sure if he was completely out. He said that he feels that he would have waited longer who been okay. Denies any injury. There is no head trauma or headache. Denies chest pain or shortness of breath. No blood or melena stool no abdominal pain no focal numbness or weakness. He did not bite his tongue and he was not incontinent. He did have cardiac bypass in September 2021 Home Medications Medication Instructions Recorded Confirmed Type atorvastatin 80 mg tablet (Lipitor) 80 mg PO QAM 02/01/19 12/08/21 History cholecalciferol (vitamin D3) 50 2,000 unit PO DAILY 02/01/19 12/08/21 History mcg (2,000 unit) tablet (Vitamin D3) insulin glargine 100 unit/mL 44 unit SUBCUT HS 02/01/19 12/08/21 History subcutaneous solution (Lantus U-100 Insulin) nitroglycerin 0.4 mg sublingual 0.4 mg SUBLINGUAL UD PRN 02/01/19 12/08/21 Hist ory tablet (Nitrostat) apixaban 5 mg tablet (Eliquis) 5 mg PO AMHS 06/07/21 12/08/21 History albuterol sulfate 0.63 mg/3 mL 0.63 mg INHALATION Q6 PRN 12/07/21 12/08/21 History solution for nebulization amiodarone 200 mg tablet 100 mg PO QAM 12/07/21 12/08/21 History aspirin 81 mg tablet,delayed 81 mg PO DAILY 12/07/21 12/08/21 History release (Aspirin Low Dose) cyanocobalamin (vitamin B-12) 500 500 mcg PO DAILY 12/07/21 12/08/21 History mcg tablet (Vitamin B-12) docusate sodium 100 mg capsule 100 mg PO BID 12/07/21 12/08/21 History ezetimibe 10 mg tablet 10 mg PO DAILY 12/07/21 12/08/21 History famotidine 20 mg tablet 20 mg PO DAILY 12/07/21 12/08/21 History ferrous sulfate 325 mg (65 mg 325 mg PO DAILY 12/07/21 12/08/21 History iron) tablet folic acid 800 mcg tablet 0.8 mg PO DAILY 12/07/21 12/08/21 History metoprolol succinate 25 mg 12.5 mg PO QAM 12/07/21 12/08/21 History tablet,extended release 24 hr sacubitril 49 mg-valsartan 51 mg 1 tab PO AMHS 12/07/21 12/08/21 History tablet (Entresto) sennosides 8.6 mg capsule (senna) 8.6 mg PO DAILY PRN 12/07/21 12/08/21 History tamsulosin 0.4 mg capsule 0.4 mg PO QAM 12/07/21 12/08/21 History torsemide 20 mg tablet 20 mg PO QAM 12/07/21 12/08/21 History Allergies Allergy/AdvReac Type Severity Reaction Status Date / Time No Known Allergies Allergy Verified 12/08/21 22:30 Past Med/Surg History Medical History Atrial fibrillation CAD (coronary artery disease) s/p stent to LAD in Sep 2018 at [facility]; follows with Dr. 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 Dyslipidemia, goal LDL below 70 HTN (hypertension) IDDM (insulin dependent diabetes mellitus) Morbid obesity NSTEMI (non-ST elevated myocardial infarction) 2019 Surgical History History of cardiac catheterization 04/2019 - [place] - + stress - unsuccessful PCI; + angioplasty; 90% mid OM1 100% proximal LAD in stent stenosis; severe CAD; pt opted for medical management over CABG 09/2018 - 1 stent - [facility] (scanned) History of cataract surgery LEFT History of colonoscopy History of vitrectomy Hx of tonsillectomy Stented coronary artery Family History Mother Breast cancer Other Stroke Social History Smoking Status: Never smoker Tobacco Type: Cigarettes Second Hand Exposure: No; Hx Alcohol Use: No Hx Substance Use: No Preferred Language: Mohawk Communication Ability: Effective Cryptanalyst Required: No Beliefs That Will Affect Care: None Current Living Situation: Spouse Current Living Situation Comment: [facility] current occupational status: retired Feels Safe at Home: Yes Assistive Devices: None Review of Systems A total of 10 systems reviewed and were otherwise negative Physical Exam Vital Signs Vital Signs - 24 hr 12/08/21 21:37 12/08/21 23:31 12/09/21 01:31 Temperature 36.8 C Temperature Source Oral Pulse Rate - Lying Pulse Rate - Sitting Pulse Rate - Standing Pulse Rate 55 L Pulse Rate [Finger] 54 L 56 L Respiratory Rate 18 18 18 Blood Pressure - Lying Blood Pressure - Sitting Blood Pressure- Standing Blood Pressure 139/72 Blood Pressure [Right Arm] 171/80 H 165/95 H Blood Pressure Mean 94 Blood Pressure Mean [Right Arm] 110 118 Blood Pressure Position [Right Arm] Sitting Sitting Pulse Oximetry 94 96 95 Oxygen Delivery Method Room Air Nasal Cannula Room Air Room Air Sepsis Recent Fever Within 48 Hours No Sepsis New/Unexplained Change in Mental Status No Sepsis Action Taken by Nursing No Action Required 12/09/21 01:35 12/09/21 01:55 Temperature Temperature Source Pulse Rate - Lying 75 Pulse Rate - Sitting 56 L Pulse Rate - Standing 56 L Pulse Rate 55 L Pulse Rate [Finger] Respiratory Rate 18 Blood Pressure - Lying 154/83 H Blood Pressure - Sitting 123/63 Blood Pressure- Standing 107/56 L Blood Pressure Blood Pressure [Right Arm] Blood Pressure Mean Blood Pressure Mean [Right Arm] Blood Pressure Position [Right Arm] Pulse Oximetry 96 Oxygen Delivery Method Room Air Sepsis Recent Fever Within 48 Hours Sepsis New/Unexplained Change in Mental Status Sepsis Action Taken by Nursing General: Well developed well nourished older male who appears in no acute distress, breathing comfortably on room air. Normal speech HEENT: Normal cephalic atraumatic. Pupils are equal round and reactive to light. Extraocular movements are intact. Oropharynx is pink with moist mucous membranes. No swelling of the mouth lips or tongue. Neck: Supple with a midline trachea. No meningeal signs or stiffness, no JVD or bruits. No Stridor. Chest: Clear to auscultation bilaterally. No wheezes or rhonchi. No increased work of breathing. He does have a loop monitor in the left chest Heart: Regular rate and rhythm without murmurs or gallops. Abdomen: Soft nontender, nondistended without rebound guarding or rigidity. Extremities: No cyanosis clubbing. Trace bilateral lower extremity edema. No calf tenderness or assymetry Spine/Back. Non tender to palpation. No CVA tenderness Skin: Good turgor without rashes. Neurologic exam: Cranial nerves two through 12 are intact. Motor and sensation are intact and symmetrical throughout. Course Administered Medications Magnesium Sulfate/Dextrose (Magnesium Sulfate / D5w) 1 gm in 100 mls @ 50 mls/hr IV Q2H GALO Stop: 12/09/21 04:59 Last Admin: 12/09/21 01:30 Dose: 50 mls/hr Documented by: [id number] Discontinued Medications Albumin Human (Albumin 25%) 12.5 gm in 50 mls @ 50 mls/hr IV ONE ONE Stop: 12/09/21 00:58 Last Infusion: 12/09/21 01:28 Dose: 0 mls/hr Documented by: [id number] Admin: 12/09/21 00:27 Dose: 50 mls/hr Documented by: [id number] Medical Decision Making Differential Diagnosis Arrhythmia, acute coronary syndrome, vasovagal episode, dehydration CHF, anemia, infection Medical Records Attestation: I reviewed the patient's medical records. Home Medications Current Medication List: was personally reviewed by me Laboratory Data Attestation: I reviewed the patient's lab results. Result diagrams: 12/08/21 21:44 12/08/21 21:44 Lab Results 12/08/21 12/08/21 12/08/21 Range/Units 21:44 21:44 21:44 WBC 4.40 L (4.8-10.8) K/uL RBC 4.11 L (4.7-6.1) M/uL Hgb 11.2 L (14.0-18.0) g/dL Hct 34.5 L (42-52) % MCV 83.9 (80-100) fL MCH 27.3 (25-34) pg MCHC 32.5 (32-36) g/dL RDW Std Deviation 52.0 H (36.4-46.3) fL RDW Coeff of Saritha 17.1 H (11.5-14.5) % Plt Count 198 (130-400) K/uL MPV 10.0 (7.4-10.4) fL Immature Gran % (Auto) 0.0 % Neut % (Auto) 61.1 % Lymph % (Auto) 23.6 % [place] % (Auto) 10.0 % Eos % (Auto) 4.8 % Baso % (Auto) 0.5 % Neut # (Auto) 2.69 (1.4-6.5) K/uL Lymph # (Auto) 1.04 L (1.2-3.4) K/uL [place] # (Auto) 0.44 (0.11-0.59) K/uL Eos # (Auto) 0.21 (0-0.5) K/uL Baso # (Auto) 0.02 (0-0.2) K/uL Immature Gran # (Auto) 0.00 (0.00-0.02) K/uL PT 11.6 (9.0-12.0) Seconds INR 1.1 (0.9-1.1) APTT 31.6 H (21.0-31.0) Seconds PTT Ratio 1.1 Sodium 137 (136-145) mmol/L Potassium 4.1 (3.5-5.1) mmol/L Chloride 101 (98-107) mmol/L Carbon Dioxide 29 (21-32) mmol/L Anion Gap 7 (3-11) BUN 26 H (6-23) mg/dl Creatinine 1.84 H (0.6-1.4) mg/dl Est Cr Clr Drug Dosing 47.4 ml/min Est GFR ( Amer) 41.8 ml/min Est GFR (Non-Af Amer) 36.1 ml/min BUN/Creatinine Ratio 14.1 (10-20) Glucose 118 H (70-99(Fasting)) mg/dl Calcium 7.9 L (8.5-10.1) mg/dl Magnesium (1.7-2.4) mg/dl Total Bilirubin 0.4 (0.2-1.0) mg/dl AST 19 (13-39) U/L ALT 27 (7-52) U/L Alkaline Phosphatase 93 (34-104) U/L Troponin I High Sens 27.5 H (0-20) pg/ml Total Protein 6.8 (6.0-8.3) gm/dl Albumin 3.5 (3.4-5.0) gm/dl Globulin 3.3 (2.5-4.0) gm/dl Albumin/Globulin Ratio 1.1 (0.9-2) Lipase 15 (11-82) U/L TSH (0.300-4.500) uIu/ml Free T4 (0.61-1.60) ng/dl SARS-CoV-2, RNA, NAAT (NEGATIVE) 12/08/21 12/08/21 12/08/21 Range/Units 21:57 22:32 22:32 WBC (4.8-10.8) K/uL RBC (4.7-6.1) M/uL Hgb (14.0-18.0) g/dL Hct (42-52) % MCV (80-100) fL MCH (25-34) pg MCHC (32-36) g/dL RDW Std Deviation (36.4-46.3) fL RDW Coeff of Saritha (11.5-14.5) % Plt Count (130-400) K/uL MPV (7.4-10.4) fL Immature Gran % (Auto) % Neut % (Auto) % Lymph % (Auto) % [place] % (Auto) % Eos % (Auto) % Baso % (Auto) % Neut # (Auto) (1.4-6.5) K/uL Lymph # (Auto) (1.2-3.4) K/uL [place] # (Auto) (0.11-0.59) K/uL Eos # (Auto) (0-0.5) K/uL Baso # (Auto) (0-0.2) K/uL Immature Gran # (Auto) (0.00-0.02) K/uL PT (9.0-12.0) Seconds INR (0.9-1.1) APTT (21.0-31.0) Seconds PTT Ratio Sodium (136-145) mmol/L Potassium (3.5-5.1) mmol/L Chloride (98-107) mmol/L Carbon Dioxide (21-32) mmol/L Anion Gap (3-11) BUN (6-23) mg/dl Creatinine (0.6-1.4) mg/dl Est Cr Clr Drug Dosing ml/min Est GFR ( Amer) ml/min Est GFR (Non-Af Amer) ml/min BUN/Creatinine Ratio (10-20) Glucose (70-99(Fasting)) mg/dl Calcium (8.5-10.1) mg/dl Magnesium (1.7-2.4) mg/dl Total Bilirubin (0.2-1.0) mg/dl AST (13-39) U/L ALT (7-52) U/L Alkaline Phosphatase (34-104) U/L Troponin I High Sens 25.7 H (0-20) pg/ml Total Protein (6.0-8.3) gm/dl Albumin (3.4-5.0) gm/dl Globulin (2.5-4.0) gm/dl Albumin/Globulin Ratio (0.9-2) Lipase (11-82) U/L TSH 6.976 H (0.300-4.500) uIu/ml Free T4 0.94 (0.61-1.60) ng/dl SARS-CoV-2, RNA, NAAT NEGATIVE (NEGATIVE) 12/08/21 Range/Units 22:32 WBC (4.8-10.8) K/uL RBC (4.7-6.1) M/uL Hgb (14.0-18.0) g/dL Hct (42-52) % MCV (80-100) fL MCH (25-34) pg MCHC (32-36) g/dL RDW Std Deviation (36.4-46.3) fL RDW Coeff of Saritha (11.5-14.5) % Plt Count (130-400) K/uL MPV (7.4-10.4) fL Immature Gran % (Auto) % Neut % (Auto) % Lymph % (Auto) % [place] % (Auto) % Eos % (Auto) % Baso % (Auto) % Neut # (Auto) (1.4-6.5) K/uL Lymph # (Auto) (1.2-3.4) K/uL [place] # (Auto) (0.11-0.59) K/uL Eos # (Auto) (0-0.5) K/uL Baso # (Auto) (0-0.2) K/uL Immature Gran # (Auto) (0.00-0.02) K/uL PT (9.0-12.0) Seconds INR (0.9-1.1) APTT (21.0-31.0) Seconds PTT Ratio Sodium (136-145) mmol/L Potassium (3.5-5.1) mmol/L Chloride (98-107) mmol/L Carbon Dioxide (21-32) mmol/L Anion Gap (3-11) BUN (6-23) mg/dl Creatinine (0.6-1.4) mg/dl Est Cr Clr Drug Dosing ml/min Est GFR ( Amer) ml/min Est GFR (Non-Af Amer) ml/min BUN/Creatinine Ratio (10-20) Glucose (70-99(Fasting)) mg/dl Calcium (8.5-10.1) mg/dl Magnesium 1.5 L (1.7-2.4) mg/dl Total Bilirubin (0.2-1.0) mg/dl AST (13-39) U/L ALT (7-52) U/L Alkaline Phosphatase (34-104) U/L Troponin I High Sens (0-20) pg/ml Total Protein (6.0-8.3) gm/dl Albumin (3.4-5.0) gm/dl Globulin (2.5-4.0) gm/dl Albumin/Globulin Ratio (0.9-2) Lipase (11-82) U/L TSH (0.300-4.500) uIu/ml Free T4 (0.61-1.60) ng/dl SARS-CoV-2, RNA, NAAT (NEGATIVE) Imaging Data Attestation: I personally reviewed and interpreted this imaging study as follows: My Impression: Chest x-rayno acute infiltrate, failure, pneumothorax seen. He does have cardiomegaly and there may be a degree of fluid overload ECG Data Attestation: I personally reviewed and interpreted this ECG as follows: Indication: + syncope Rate (beats per minute): 56 Rhythm: + sinus bradycardia ECG Intervals/blocks: + First degree AV block ECG [place]: + Normal ECG ST segments: + Normal ST segments ECG Findings: + PVCs, + Poor R wave progression and + Other (Nonspecific interventricular block); no PACs Comparison ECG Date: from (06/07/21) Change: no significant change MDM Narrative This Patient comes in as described above he had 2 syncopal episodes in last 2 days. He does have a significant cardiac history and is prone to arrhythmias. Dr. Dawson called ahead and does want him to be admitted. Upon arrival he has no evidence that he is currently in any significant arrhythmia his EKG does not appear is ischemic. Medically, he does not appear to be significantly fluid overloaded. He is nursing of electrolyte or metabolic abnormality. His cardiac biomarkers showed no significant change between 0 and 2 hours so he did not acutely rule in for acute coronary syndrome/cardiac damage so far. His BUN and creatinine are elevated and this may be more of a prerenal issue and causing his symptoms as well. I did consult Dr. Reddy to see him in the ER as he will be admitted for observation and cardiac monitoring. Continuous cardiac monitoring: Orders placed in EMR for continuous cardiac monitoring. Hung interpretation patient was noted to be in sinus bradycardia with a rate of 60. Impression & Plan Syncope, Ischemic cardiomyopathy, Pseudoaneurysm, Hx of cardiac arrest, Acute renal insufficiency Discharge Plan Visit Data Chief Complaint: Syncope Stated Complaint: Syncope ED Provider: Per Lafleur Discharge Problem: Syncope, Ischemic cardiomyopathy, Pseudoaneurysm, Hx of cardiac arrest, Acute renal insufficiency Discharge Instructions Interventions: ED Discharge Assessment Last Done: 12/09/21 01:56 Forms Stand Alone Forms: My [facility] [employer] Prescriptions Prescriptions: No Action atorvastatin [Lipitor] 80 mg tablet 80 mg PO QAM RF: 0 Lantus U-100 Insulin 100 unit/mL solution 44 unit subcut HS RF: 0 nitroglycerin [Nitrostat] 0.4 mg Tablet, Sublingual 0.4 mg sublingual UD PRN (Reason: Chest Pain) RF: 0 cholecalciferol (vitamin D3) [Vitamin D3] 2,000 unit Tablet 2,000 unit PO DAILY RF: 0 Eliquis 5 mg Tablet 5 mg PO AMHS RF: 0 Entresto 49-51 mg tablet 1 tab PO AMHS RF: 0 torsemide 20 mg tablet 20 mg PO QAM RF: 0 amiodarone 200 mg tablet 100 mg PO QAM RF: 0 famotidine 20 mg tablet 20 mg PO DAILY RF: 0 tamsulosin 0.4 mg capsule 0.4 mg PO QAM RF: 0 metoprolol succinate 25 mg tablet extended release 24 hr 12.5 mg PO QAM RF: 0 aspirin [Aspirin Low Dose] 81 mg Tablet,Delayed Release (Dr/Ec) 81 mg PO DAILY RF: 0 cyanocobalamin (vitamin B-12) [Vitamin B-12] 500 mcg Tablet 500 mcg PO DAILY RF: 0 ferrous sulfate 325 mg (65 mg iron) Tablet 325 mg PO DAILY RF: 0 docusate sodium 100 mg Capsule 100 mg PO BID RF: 0 folic acid 800 mcg Tablet 0.8 mg PO DAILY RF: 0 ezetimibe 10 mg tablet 10 mg PO DAILY RF: 0 senna 8.6 mg Capsule 8.6 mg PO DAILY PRN (Reason: Constipation) RF: 0 albuterol sulfate 0.63 mg/3 mL Solution For Nebulization 0.63 mg INHALATION Q6 PRN (Reason: Wheezing) RF: 0 Referrals Referrals: John Garsia MD [Primary Care Provider] - Discharge Problem: Syncope Qualifiers: Syncope type: unspecified Qualified Code(s): R55 - Syncope and collapse
[2021-12-09] MEDS ORDERED: NITROGLYCERIN SL 0.4 MG/TAB TAB SL PRN (02:16)
[2021-12-09] MEDS ORDERED: GLUCAGON FOR INJ 1 MG VIAL SQ PRN (02:16)
[2021-12-09] MEDS ORDERED: GLUCOSE 10 TABS/TUBE PO PRN (02:16)
[2021-12-09] MEDS ORDERED: GLUCOSE 40% GEL 15 GM TUBE PO PRN (02:16)
[2021-12-09] MEDS ORDERED: ACETAMINOPHEN 325 MG TAB PO PRN (02:16)
[2021-12-09] MEDS ORDERED: traMADol HCL 50 MG TABLET PO PRN (02:16)
[2021-12-09] MEDS ORDERED: DEXTROSE 50% 50 ML SYRINGE IV PRN (02:16)
[2021-12-09] MEDS ORDERED: CARBOHYDRATES FOR HYPOGLYCEMIA PO PRN (02:16)
[2021-12-09] MEDS ORDERED: PROMETHAZINE HCL 12.5 MG in SODIUM CHLORIDE 0.9% 50 ML IV PRN (02:16)
[2021-12-09] MEDS: APIXABAN 5 MG TABLET PO SCH ×3 (03:02→20:14)
[2021-12-09] MEDS: INSULIN ASPART PER UNIT SC SCH ×5 (03:07→20:21)
[2021-12-09 04:12] LABS: Appearance Urine Clear (Clear); Bacteria Urine Automated Negative (Negative); Bilirubin Urine Negative (Negative); Blood Urine Trace (Negative); Color Urine Yellow; Glucose Urine UA Negative (Negative); Ketones Urine Negative (Negative); Leukocyte Esterase Urine Negative (Negative); Nitrite Urine Negative (Negative); Protein Urine 1+ (Negative); RBC Urine Automated 0-4 /hpf (0-4); Specific Gravity Urine 1.008 (1.000-1.030); Urobilinogen Urine Negative (Negative)
[2021-12-09 06:48] LABS: Eosinophils # (auto) 0.19 K/uL (0-0.5); Eosinophils % (auto) 5.8 %; Hematocrit (blood only) 31.1 % (42-52); Lymphocytes # (auto) 1.04 K/uL (1.2-3.4); Lymphocytes % (auto) 31.9 %; Mean Corpuscular Hemoglobin 27.3 pg (25-34); Mean Corpuscular Hgb Conc 32.2 g/dL (32-36); Mean Platelet Volume 9.6 fL (7.4-10.4); Monocytes # (auto) 0.29 K/uL (0.11-0.59); Monocytes % (auto) 8.9 %; Neutrophils # (auto) 1.74 K/uL (1.4-6.5); Neutrophils % (auto) 53.4 %; Platelet Count 176 K/uL (130-400); RDW Coefficient of Variation 17.2 % (11.5-14.5); RDW Standard Deviation 53.5 fL (36.4-46.3); Red Blood Count 3.66 M/uL (4.7-6.1); White Blood Count 3.26 K/uL (4.8-10.8)
[2021-12-09 07:04] LABS: BUN Creatinine Ratio 15.4 (10-20); Calcium 7.6 mg/dl (8.5-10.1); Creatinine Clr Calc Pharmacy 55.9 ml/min; Potassium 3.5 mmol/L (3.5-5.1)
[2021-12-09] MEDS: EZETIMIBE 10 MG TABLET PO SCH (07:35)
[2021-12-09] MEDS: FERROUS SULFATE 325 MG TAB PO SCH (07:35)
[2021-12-09] MEDS: FAMOTIDINE 20 MG TAB PO SCH (07:35)
[2021-12-09] MEDS: TAMSULOSIN HCL 0.4 MG CAP PO SCH (07:35)
[2021-12-09] MEDS: FOLIC ACID 400 MCG TAB PO SCH (07:35)
[2021-12-09] MEDS: CYANOCOBALAMIN (B-12) 500 MCG TABLET PO SCH (07:35)
[2021-12-09] MEDS: SENNA 8.6 MG TAB PO PRN (07:35)
[2021-12-09] MEDS: ATORVASTATIN 40 MG TAB PO SCH (07:36)
[2021-12-09] MEDS: ASPIRIN 81 MG ECTAB PO SCH (07:36)
[2021-12-09] MEDS: DOCUSATE SODIUM 100 MG CAP PO SCH ×2 (07:36→20:14)
[2021-12-09] MEDS ORDERED: POTASSIUM CHLORIDE CRTAB 20 MEQ TABCR PO STA (08:11)
[2021-12-09] MEDS: INSULIN GLARGINE SOLOSTAR 100 UNITS/ML 3 ML PEN SC SCH ×2 (08:46→20:14)
--- NOTE | 2021-12-09 09:17 | XRay Report ---
XR chest 1V portable CLINICAL HISTORY: Atypical chest pain. COMPARISON STUDY: Chest radiograph February 01, 2019. FINDINGS: Interval median sternotomy is noted with mediastinal surgical clips. Suspected left atrial occluder device is in place. Moderate cardiomegaly is noted. No evidence for pulmonary edema. No pneu mothorax or pleural effusion. There is slight asymmetric hazy left lung opacity. IMPRESSION: 1. Cardiomegaly. No evidence for pulmonary edema. 2. Slight asymmetric left lung hazy opacity, probably technical. ACT 112: Negative or not required by law. Electronically signed by: Chepe Cherry M.D. 12/09/2021 9:16 AM
--- NOTE | 2021-12-09 09:42 | Cardiology Consultation ---
Date of Consultation December 09, 2021 Assessment & Plan (1) Syncope: (2) Hx of cardiac arrest: (3) Atrial fibrillation: (4) Pseudoaneurysm: (1) Syncope: -Patient with two episodes evening of 12/08/21 and afternoon of 12/07/21. Difficult to discern if this is due to orthostatic hypotension or arrhythmia. Given history of LAD coronary territory scar/ aneurysm ventricular arrhythmia is a possibility and given his EKG findings of sinus bradycardia in the 50s with long first degree AVB, intermittent symptomatic bradycardia also a concern. No pauses or high grade AV block noted on telemetry overnight. Patient was wearing a TheraSimoPatch XT monitor at the time of both of the events. Will have family bring in the box and the diary. Will need to record the date / time of the events in the diary , and will expedite processing the monitor. For now, resume low dose metoprolol to help minimize risk of lapsing back in to atrial fibrillation. Hold other antihypertensives for today including torsemide, flomax, Entresto. Most recent BP 136/76. This of course is difficult as pt obviously needs these medications in the [facility]. (2) Hx of cardiac arrest: -Out of hospital arrest 11/14/21. Circumstances leading up to the event include "cold symptoms" also volume overload. Successful CPR (PEA, narrow complex tachycardia noted per progress notes then). LVEF ~45% and given lack of observed ventricular arrhythmias AICD no placed , with thoughts that perhaps event was due to profound volume overload. 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 No urgent consult necessary today. History of Present Illness Attending Physician: Palma Lui MD History of Present Illness Roger Lorenzo (Bob) is a 71 year old male seen in cardiology consultation per the request of Dr Andres for the evaluation of syncope and a palpable lump on the medical aspect of the left thigh. The patient's primary environmental studies faculty member is Dr Lindquist. The patient presented to the emergency department via EMS the evening of 12/08/2021 after having his second episode of collapsing in a 24-hour interval. The first episode took place the day before on 12/07/2021 when he was on his way for a diagnostic ultrasound appointment at [facility] and collapsed shortly after getting out of the car. He was assessed by the providers at that site with noted systolic blood pressure of 99 mmHg at that time as per report of his daughter, Molly. Yesterday the patient felt well. He was outside in the yard doing some walking, observed by family. He got up from a swing chair, and describes taking a few steps, before feeling lightheaded. Family noted that he tried to brace himself on a gas grill, but ultimately he collapsed, perhaps transiently losing consciousness just for a number of seconds per family report. He was assessed by EMS, and I personally spoke to the EMT on scene, and by the time the medics arrived, the patient's systolic blood pressure was 120, in sinus rhythm in the 50s was noted. Pulse oximetry 93% on room air at that time. Due to the patient's recent complex issues, hospitalization for further observation recommended. Thus far, telemetry has revealed stable sinus bradycardia in the 50s, with long first-degree AV block which has been his recent chronic rhythm. Cardiac History: 1. Cardiac catheterization, [facility] 09/21/2018 with hemodynamically significant mid LAD lesion treated with rotational atherectomy and drug-eluting stent 2. Cardiac catheterization 04/30/2021: 100% chronic total occlusion of the mid LAD at the previous stent site with left to left and right to left collaterals, 70% ostial stenosis of diagonal 1, 90% OM1 stenosis, distal RPDA with diffuse mild disease 3. 09/26/2021, CABG x2, [facility], BROUSSARD to LAD, SVG to OM. Postoperative course complicated by atrial fibrillation. 4. 11/14/2021, out of hospital cardiac arrest event, 10 to 15 minutes of bystander CPR, etiology of arrest attributed to acute decompensation of heart failure and hypoxia. Follow-up 14-day [facility] compliance lead September, without significant arrhythmia. 5. 11/15/21, Transthoracic echocardiogram, [facility], left ventricular ejection fraction 45-49%. There is a large sized apical, anteroseptal, and anterior wall motion abnormality with hypokinesis to akinesis of the segments, aortic root and proximal ascending aorta are mildly dilated, 4.5 cm, 4.1 cm respectively. Allergies Allergy/AdvReac Type Severity Reaction Status Date / Time No Known Allergies Allergy Verified 12/08/21 22:30 Home Medications Medication Instructions Recorded Confirmed Type atorvastatin 80 mg tablet (Lipitor) 80 mg PO QAM 02/01/19 12/08/21 History cholecalciferol (vitamin D3) 50 2,000 unit PO DAILY 02/01/19 12/08/21 History mcg (2,000 unit) tablet (Vitamin D3) insulin glargine 100 unit/mL 44 unit SUBCUT HS 02/01/19 12/08/21 History subcutaneous solution (Lantus U-100 Insulin) nitroglycerin 0.4 mg sublingual 0.4 mg SUBLINGUAL UD PRN 02/01/19 12/08/21 History tablet (Nitrostat) apixaban 5 mg tablet (Eliquis) 5 mg PO AMHS 06/07/21 12/08/21 History albuterol sulfate 0.63 mg/3 mL 0.63 mg INHALATION Q6 PRN 12/07/21 12/08/21 History solution for nebulization amiodarone 200 mg tablet 100 mg PO QAM 12/07/21 12/08/21 History aspirin 81 mg tablet,delayed 81 mg PO DAILY 12/07/21 12/08/21 History release (Aspirin Low Dose) cyanocobalamin (vitamin B-12) 500 500 mcg PO DAILY 12/07/21 12/08/21 History mcg tablet (Vitamin B-12) docusate sodium 100 mg capsule 100 mg PO BID 12/07/21 12/08/21 History ezetimibe 10 mg tablet 10 mg PO DAILY 12/07/21 12/08/21 History famotidine 20 mg tablet 20 mg PO DAILY 12/07/21 12/08/21 History ferrous sulfate 325 mg (65 mg 325 mg PO DAILY 12/07/21 12/08/21 History iron) tablet folic acid 800 mcg tablet 0.8 mg PO DAILY 12/07/21 12/08/21 History metoprolol succinate 25 mg 12.5 mg PO QAM 12/07/21 12/08/21 History tablet,extended release 24 hr sacubitril 49 mg-valsartan 51 mg 1 tab PO AMHS 12/07/21 12/08/21 History tablet (Entresto) sennosides 8.6 mg capsule (senna) 8.6 mg PO DAILY PRN 12/07/21 12/08/21 History tamsulosin 0.4 mg capsule 0.4 mg PO QAM 12/07/21 12/08/21 History torsemide 20 mg tablet 20 mg PO QAM 12/07/21 12/08/21 History Patient History Medical History Atrial fibrillation CAD (coronary artery disease) s/p stent to LAD in Sep 2018 at [facility]; follows with Dr. 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 Dyslipidemia, goal LDL below 70 HTN (hypertension) IDDM (insulin dependent diabetes mellitus) Morbid obesity NSTEMI (non-ST elevated myocardial infarction) 2018 Surgical History History of cardiac catheterization 04/2019 - [place] - + stress - unsuccessful PCI; + angioplasty; 90% mid OM1 100% proximal LAD in stent stenosis; severe CAD; pt opted for medical management over CABG 09/2018 - 1 stent - [facility] (scanned) History of cataract surgery LEFT History of colonoscopy History of vitrectomy Hx of tonsillectomy Stented coronary artery Family History Mother Breast cancer Other Stroke Social History Smoking Status: Never smoker Tobacco Type: Cigarettes Second Hand Exposure: No; Do You Dip or Chew Tobacco: No; Hx Alcohol Use: No Hx Substance Use: No Preferred Language: Japanese Communication Ability: Effective 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 Beliefs That Will Affect Care: None Current Living Situation: Spouse Current Living Situation Comment: house current occupational status: retired Other Information That Helps Us Care for You: No Feels Safe at Home: Yes Safety Concerns: Feels Safe At This Time Assistive Devices: None and Glasses Review of Systems Review of Systems: All systems reviewed & are unremarkable except as noted in HPI & below Physical Exam Constitutional: WD/WN, vitals as above Respiratory: mild mid apical wheezing, no rhonchi Cardiovascular: Rate/Rhythm: + bradycardic Heart Sounds: no murmur Vessels: no JVD Extremities: no edema medial aspect of left thigh, no pulsatile lump, no surrounding ecchymosis or erythema Results & Data ([facility]) Vital Signs (Past 12 Hours) Vital Signs Temp Pulse Pulse Resp BP BP Pulse Ox 12/09/21 07:18 36.8 C 57 L 18 136/76 93 12/09/21 02:30 54 L 12/09/21 02:17 36.4 C L 58 L 18 120/76 96 12/09/21 02:16 36.4 C L 58 L 18 120/76 96 12/09/21 01:35 55 L 18 96 12/09/21 01:31 56 L 18 165/95 H 95 12/08/21 23:31 54 L 18 171/80 H 96 12/08/21 21:37 36.8 C 55 L 18 139/72 94 Pulse Ox 12/09/21 07:18 12/09/21 02:30 12/09/21 02:17 12/09/21 02:16 96 12/09/21 01:35 12/09/21 01:31 12/08/21 23:31 12/08/21 21:37 Laboratory Results Cardiac Enzymes 12/08/21 12/08/21 12/09/21 Range/Units 21:44 22:32 06:35 AST 19 (13-39) U/L Troponin I High Sens 27.5 H 25.7 H 29.8 H (0-20) pg/ml Coagulation 12/08/21 Range/Units 21:44 PT 11.6 (9.0-12.0) Seconds APTT 31.6 H (21.0-31.0) Seconds CBC 12/08/21 12/09/21 Range/Units 21:44 06:35 WBC 4.40 L 3.26 L (4.8-10.8) K/uL RBC 4.11 L 3.66 L (4.7-6.1) M/uL Hgb 11.2 L 10.0 L (14.0-18.0) g/dL Hct 34.5 L 31.1 L (42-52) % Plt Count 198 176 (130-400) K/uL Neut # (Auto) 2.69 1.74 (1.4-6.5) K/uL Lymph # (Auto) 1.04 L 1.04 L (1.2-3.4) K/uL Whitley # (Auto) 0.44 0.29 (0.11-0.59) K/uL Eos # (Auto) 0.21 0.19 (0-0.5) K/uL Baso # (Auto) 0.02 0.00 (0-0.2) K/uL Comprehensive Metabolic Panel 12/08/21 12/09/21 Range/Units 21:44 06:35 Sodium 137 139 (136-145) mmol/L Potassium 4.1 3.5 (3.5-5.1) mmol/L Chloride 101 104 (98-107) mmol/L Carbon Dioxide 29 30 (21-32) mmol/L BUN 26 H 24 H (6-23) mg/dl Creatinine 1.84 H 1.56 H (0.6-1.4) mg/dl Glucose 118 H 102 H (70-99(Fasting)) mg/dl Calcium 7.9 L 7.6 L (8.5-10.1) mg/dl AST 19 (13-39) U/L ALT 27 (7-52) U/L Alkaline Phosphatase 93 (34-104) U/L Total Protein 6.8 (6.0-8.3) gm/dl Albumin 3.5 (3.4-5.0) gm/dl Intake and Output 12/08/21 12/09/21 12/09/21 22:59 06:59 14:59 Intake Total 250 / 740 490 / 740 Output Total 350 / 350 Balance 250 / 390 140 / 390 Intake: IV 250 / 500 250 / 500 Albumin 25% 12.5 gm In 50 ml @ 50 / 50 50 mls/hr IV ONE ONE Rx#: [id number] Magnesium Sulfate / D5w 1 gm In 200 / 200 100 ml @ 50 mls/hr IV Q2H [facility] Rx#:[id number] Left Antecubital 250 / 250 Oral 240 / 240 Output: Urine 350 / 350 Other: Weight 125.1 kg 124.9 kg Weight Measurement Method Built in [facility] Built in [facility] Diagnostic Findings EKG 12/08/21, 21:37 , reviewed independently: SB at 56 bpm with first degree AVB of just under 400 ms. (1) Syncope Syncope type: unspecified Qualified Code(s): R55 - Syncope and collapse
[2021-12-09] MEDS: METOPROLOL SUCC 25MG EXT REL TAB PO SCH (11:46)
--- NOTE | 2021-12-09 11:57 | Electrocardiogram Report ---
Test Reason : Blood Pressure : / mmHG Vent. Rate : 056 BPM Atrial Rate : 049 BPM P-R Int : 000 ms QRS Dur : 136 ms QT Int : 472 ms P-R-T Axes : 000 014 131 degrees QTc Int : 455 ms Junctional bradycardia with occasional Premature ventricular complexes Left bundle branch block Cannot rule out Anteroseptal infarct , age undetermined Abnormal ECG When compared with ECG of 07-DEC-2021 16:05, Junctional rhythm has replaced Sinus rhythm Confirmed by Devan Juarez ([id number]) on 12/09/2021 11:56:57 AM Referred By: Sid Arceo Confirmed By:Devan Juarez
--- NOTE | 2021-12-09 13:50 | Hospitalist Progress Note ---
Date of Service December 09, 2021 Assessment & Plan (1) Syncope: Plan: 71-year-old male with PMH of HFrEF [2021 TTE with EF 45 to 49%], CAD s/p CABG and stent, paroxysmal A flutter s/p cardioversion & on eliquis, history of cardiac arrest [recent], HTN, HLD, COPD as per records, pulmonary HTN, DM2 on insulin], CKD [baseline creatinine 1.6-1.7], orthostatic hypotension and chronic anemia [baseline hemoglobin 10-11] presented to our ED 12/09 with complaint of recurrent syncopal event preceded by lightheadedness. He is being managed for the following: #. Extensive cardiac history #. Recent cardiac arrest #. Recurrent syncope #. Orthostatic hypotension #. Bradycardia November 14-November 23, 2021 at [facility] for [id number] cardiac arrest (PEA vs Narrow Complex Tachy) s/p CPR/intubation after transfer from [facility] ER. Recently Coreg switched to Toprol XL (d/t low BP) and Coumadin changed to Eliquis. Was discharged on OP zio patch after last admission. Patient had been dealing with dizziness noted on getting up too quick since CABG surgery last July 2021 as per patient. Patient advised to get up from bed very slowly. 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 Lightheaded prior to the events, no chest pain/sob/witnessed seizures. BP around both the events low to low normal per records. BP at presentation to ER was elevated. Ortho vitals at presentation positive. EKG at presentation shaheen (56 bpm) w/ occasional PVCs. Trop minimally elevated and flat trended, likely chronic. Monitor/replete electrolytes Syncope 2/2 orthostatic hypotension vs arrhythmia vs other . Continue to change position slowly giving body time to react to position changes, pt recounselled. Cardio on board, resume low dose metoprolol & hold other antihypertensives. Appreciate recs. #. Hypothyroidism TSH 6.9 at presentation w/ fT4 0.94 Repeat TFT in 3 months as OP f/u PCP #. Non painful lump on left groin OP Nonvascular left lower extremity ultrasound : Palpable lump in the left medial thigh corresponds to a 36 x 21 x 25 mm oval structure suspected to be a p seudoaneurysm and AV fistula. Occlusion of the greater saphenous vein distal to this level. Surgical consultation is suggested. Outpatient Vascular Surgery consultation for evaluation of abnormal leg ultrasound as per specialist recommendation as per ER provider note. #. 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 No fever/chills. sick w/ pneumonia Pt s/p complete vaccines against COVID-19 Complains of cough w/ clear sputum x 2 days PRISON CLASSIFICATION COUNSELOR supportive Mx. monitor for bacterial super infection. #. 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 DVT prophylaxis. Eliquis Full code Patient daughter Ms. Molly Lorenzo, contact #[phone]. Admission and Anticipated Discharge Date Admission Date: December 09, 2021 Subjective Patient seen and examined at bedside as a follow-up of recurrent syncope. Patient was lying in bed, on room air, NAD, no new acute events overnight, patient does report some cough with clear sputum, patient reports eating okay and moving bowels okay. Patient denies any chest pain/headache/sore throat/belly pain/feeling of heart racing/other review of symptoms. Physical Exam Physical Exam: GENERAL: Alert and oriented x3. NAD, on RA. HEENT: No pallor, no icterus. Pupils equal, round and reactive to light. Oral mucosa moist. NECK: No JVD, no neck masses. HEART: S1 and S2 heard. bradycardia. No murmur, no gallop. RESPIRATORY SYSTEM: Normal AP diameter. No accessory muscle use. No wheezing, occasional b/b crackles. ABDOMEN: Soft, bowel sounds present, nontender, no distention. CENTRAL NERVOUS SYSTEM: No facial droop. Speech is clear. Obeys simple commands. Moves extremities. EXTREMITIES: N1+ BLE edema, no erythema seen. Medial left thigh lump noted. Results & Data Results & Data ([facility]) Vital Signs (Past 12 Hours) Vital Signs Temp Pulse Pulse Resp BP Pulse Ox Pulse Ox 12/09/21 11:31 36.9 C 58 L 19 108/63 93 12/09/21 07:18 36.8 C 57 L 18 136/76 93 12/09/21 02:30 54 L 12/09/21 02:17 36.4 C L 58 L 18 120/76 96 12/09/21 02:16 36.4 C L 58 L 18 120/76 96 96 (1) Syncope Syncope type: unspecified Qualified Code(s): R55 - Syncope and collapse
[2021-12-09] MEDS: guaiFENesin 600 MG TABCR PO SCH (20:26)
[2021-12-09] MEDS: FLUTICASONE PROPIONATE NA SPR 16 GM BTL PRN (20:27)
[2021-12-10] MEDS ORDERED: ALBUT/IPRATROP 3MG/0.5MG NEB 3 ML VIAL NEB STA (04:47)
[2021-12-10] MEDS ORDERED: COUGH DROP (SUGAR FREE) LOZ 24 LOZ/1 BOX BUCCAL PRN (05:52)
[2021-12-10] MEDS ORDERED: COUGH DROP (SUGAR FREE) LOZ 24 LOZ/1 BOX BUCCAL ONE (05:55)
[2021-12-10] MEDS: FLUTICASONE PROPIONATE NA SPR 16 GM BTL PRN (06:52)
[2021-12-10 07:14] LABS: Hematocrit (blood only) 32.8 % (42-52); Hemoglobin 10.6 g/dL (14.0-18.0); Mean Corpuscular Hemoglobin 27.4 pg (25-34); Mean Corpuscular Hgb Conc 32.3 g/dL (32-36); Mean Corpuscular Volume 84.8 fL (80-100); Mean Platelet Volume 9.6 fL (7.4-10.4); Platelet Count 166 K/uL (130-400); RDW Coefficient of Variation 17.2 % (11.5-14.5); RDW Standard Deviation 53.2 fL (36.4-46.3); Red Blood Count 3.87 M/uL (4.7-6.1); White Blood Count 3.64 K/uL (4.8-10.8)
[2021-12-10 07:38] LABS: BUN Creatinine Ratio 14.7 (10-20); Creatinine Clr Calc Pharmacy 58.3 ml/min; Est GFR (African American) 56.7 ml/min; Est GFR (Non-African American) 48.9 ml/min; Magnesium 1.8 mg/dl (1.7-2.4)
[2021-12-10] MEDS: INSULIN GLARGINE SOLOSTAR 100 UNITS/ML 3 ML PEN SC SCH (08:11)
[2021-12-10] MEDS: INSULIN ASPART PER UNIT SC SCH ×2 (08:11→12:39)
[2021-12-10] MEDS: FAMOTIDINE 20 MG TAB PO SCH (08:14)
[2021-12-10] MEDS: guaiFENesin 600 MG TABCR PO SCH (08:14)
[2021-12-10] MEDS: APIXABAN 5 MG TABLET PO SCH (08:14)
[2021-12-10] MEDS: ASPIRIN 81 MG ECTAB PO SCH (08:15)
[2021-12-10] MEDS: SENNA 8.6 MG TAB PO PRN (08:15)
[2021-12-10] MEDS: FERROUS SULFATE 325 MG TAB PO SCH (08:15)
[2021-12-10] MEDS: DOCUSATE SODIUM 100 MG CAP PO SCH (08:15)
[2021-12-10] MEDS: METOPROLOL SUCC 25MG EXT REL TAB PO SCH (08:16)
[2021-12-10] MEDS: TAMSULOSIN HCL 0.4 MG CAP PO SCH (08:16)
[2021-12-10] MEDS: EZETIMIBE 10 MG TABLET PO SCH (08:17)
[2021-12-10] MEDS: CYANOCOBALAMIN (B-12) 500 MCG TABLET PO SCH (08:17)
[2021-12-10] MEDS: FOLIC ACID 400 MCG TAB PO SCH (08:17)
[2021-12-10] MEDS: ATORVASTATIN 40 MG TAB PO SCH (08:18)
--- NOTE | 2021-12-10 08:49 | XRay Report ---
XR chest 1V portable CLINICAL HISTORY: sob. COMPARISON STUDY: 12/08/2021 TECHNIQUE: 1 view of the chest FINDINGS: Single frontal view of the chest demonstrates the cardiomediastinal silhouette to be within normal li mits. Compared to previous examination, there is no evidence for mild central vascular congestion. Th e lungs are clear of alveolar opacities. There is no evidence for pleural effusion. No diffuse pulmon krystian edema is seen. There is no acute osseous pathology. IMPRESSION: 1. Mild central vascular congestion. ACT 112: Negative or not required by law. Electronically signed by: Yan Herman M.D. 12/10/2021 8:48 AM
[2021-12-10] MEDS ORDERED: predniSONE 20 MG TAB PO SCH (10:15)
[2021-12-10] MEDS ORDERED: TORSEMIDE 10 MG TAB PO SCH (10:15)
[2021-12-10] MEDS ORDERED: AMIODARONE 200 MG TAB PO SCH (10:15)
--- NOTE | 2021-12-10 10:18 | Cardiology Progress Note ---
Date of Service December 10, 2021 Assessment & Plan (1) Syncope: (2) Hx of cardiac arrest: (3) Ischemic cardiomyopathy: (4) Atrial fibrillation: (5) Pseudoaneurysm: (6) Cough: Plan: (1) Syncope: -Question if due to orthostasis or intermittend arrhythmia, such as intermitted severe bradycardia or ventricular arrhythmia. Prior Zio monitor worn in Sep 2021 without arrhythmia. No culprit rhythm abnormality on telemetry thus far this admission (however has chronic long first degree AVB). -Repat Zio monitor worn during events 12/07/21, and 12/08/21. -Monitor removed 12/09/21 sent back to [employer] via [place] mail , for expedited review (Dr Arceo called [employer] 12/09/21 to request expedited turn around). Reintroduce torsemide and amiodarone 12/09/21. Holding Entresto. (2) Hx of cardiac arrest 11/14/21: -perhaps relate to hypoxia in setting of respiratory virus and CHF. -Arrhythmia no excluded. -LVEF > 40% (suggesting less likelihood of ventricular arrhythmia, but given distal LAD territory scar, still a consideration. (3) Ischemic cardiomyopathy: -Stable findings on echo -Holding Entresto -Resume torsemide (4) Atrial fibrillation: With caution , continue rhythm control strategy with low dose metoprolol, amiodarone. Eliquis for stroke prevention. (5) Pseudoaneurysm / or AV fistula of left medial thigh: non emergent. Outpatient Vascular surgery evaluation planned. Referral placed in [facility] outpt record (6) Cough: -Pt with non productive , bothersome cough. -Perhaps related to CHF, however, spouse has it also. -COVID screen negative. -proceed with biofire respiratory panel for other viral causes -Proceed with course of low dose prednisone 20 mg PO daily x 5 days. DISPOSITION: -reassess after biofire resp panel results back. Possible DC this afternoon. Admission and Anticipated Discharge Date Admission Date: December 09, 2021 Subjective Pt seen in cardiology follow up of his history of recurrent syncope. No lightheadedness or dizziness in last 24 hours. OOB to chair and bath room without symptoms. Only complaint is non productive cough. Partially improved with Mucinex. Review of Systems Review of Systems: All systems reviewed & are unremarkable except as noted in HPI & below Physical Exam Constitutional: + obese; no acute distress Respiratory: mild apical wheezing. No rales. Cardiovascular: RRR, no murmur, no edema Gastrointestinal (Abdomen): normal bowel sounds, soft, nontender, no hepatosplenomegaly Neurologic: PERRL, EOMI, accommodation nl, no face palsy, no dysarthria Results & Data ([facility]) Vital Signs (Past 12 Hours) Vital Signs Temp Pulse Pulse Resp BP Pulse Ox 12/10/21 10:00 66 12/10/21 07:47 37.1 C 66 15 160/84 H 91 12/10/21 05:35 67 22 95 12/10/21 03:35 36.5 C 63 18 122/45 L 90 12/10/21 00:23 36.5 C 64 18 151/75 H 90 12/09/21 22:20 63 Laboratory Results CBC 12/10/21 Range/Units 07:00 WBC 3.64 L (4.8-10.8) K/uL RBC 3.87 L (4.7-6.1) M/uL Hgb 10.6 L (14.0-18.0) g/dL Hct 32.8 L (42-52) % Plt Count 166 (130-400) K/uL Comprehensive Metabolic Panel 12/10/21 Range/Units 07:00 Sodium 134 L (136-145) mmol/L Potassium 4.0 (3.5-5.1) mmol/L Chloride 101 (98-107) mmol/L Carbon Dioxide 28 (21-32) mmol/L BUN 21 (6-23) mg/dl Creatinine 1.43 H (0.6-1.4) mg/dl Glucose 84 (70-99(Fasting)) mg/dl Calcium 8.0 L (8.5-10.1) mg/dl Intake and Output 12/09/21 12/10/21 12/10/21 22:59 06:59 14:59 Intake Total 1100 / 1525 425 / 1525 Balance 1100 / 1225 425 / 1225 Intake: Oral 1100 / 1525 425 / 1525 Other: # Unmeasured Voids 2 1 Weight 115 kg Weight Measurement Method Built in [facility] Diagnostic Findings EKG this am 12/10, SR at 64 bpm with long first degree AVB. -not significantly changed compared to baseline dating back to 2018. Echo performed 12/10/21; Distal LAD territory scar, LVEF 40-45%, unchanged compared to study at [facility] 1 month ago. (1) Syncope Syncope type: unspecified Qualified Code(s): R55 - Syncope and collapse
[2021-12-10] MEDS ORDERED: methylPREDNISolone 60 MG in SYRINGE 0 ML IV STA (10:37)
[2021-12-10] MEDS: LEVALBUTEROL HCL 1.25 MG/3 ML NEB NEB SCH ×2 (11:00→13:32)
[2021-12-10] MEDS: BENZONATATE 100 MG CAPSULE PO SCH ×2 (11:57→14:19)
[2021-12-10 13:35] LABS: Adenovirus PCR Not Detected (NotDetected); Bordetella parapertussis PCR Not Detected (NotDetected); Bordetella pertussis PCR Not Detected (NotDetected); Chlamydia pneumoniae PCR Not Detected (NotDetected); Coronavirus 229E PCR Not Detected (NotDetected); Coronavirus CoV-2 (COVID19)PCR Not Detected (NotDetected); Coronavirus HKU1 PCR Not Detected (NotDetected); Coronavirus NL63 PCR Not Detected (NotDetected); Coronavirus OC43PCR Not Detected (NotDetected); Influenza A PCR Not Detected (NotDetected); Influenza B PCR Not Detected (NotDetected); Mycoplasma pneumoniae PCR Not Detected (NotDetected); Parainfluenza Virus 1 PCR Not Detected (NotDetected); Parainfluenza Virus 2 PCR Not Detected (NotDetected); Parainfluenza Virus 3 PCR Not Detected (NotDetected); Parainfluenza Virus 4 PCR Not Detected (NotDetected); Respiratory Syncytial VirusPCR Not Detected (NotDetected); Rhinovirus/Enterovirus PCR Not Detected (NotDetected)
[2021-12-10] MEDS ORDERED: methylPREDNISolone 40 MG in SYRINGE 0 ML IV STA (13:39)
[2021-12-10 13:43] LABS: Human Metapneumovirus PCR DETECTED (NotDetected)
--- NOTE | 2021-12-10 14:38 | Discharge Summary ---
Date of Service December 10, 2021 Admission HPI Per Admitting Provider History obtained from patient, family, and records. Medical history significant for chronic systolic heart failure secondary to ischemic cardiomyopathy (EF 45 to 49%, TTE 2021), CAD status CABG status post stent, paroxysmal atrial flutter status post cardioversion on Eliquis, history of cardiac arrest, hypertension, hyperlipidemia, COPD as per records, pulmonary hypertension as per records, DM2 insulin requiring, CRI (baseline creatinine 1.6-1.7), history of orthostatic hypotension, chronic anemia (baseline hemoglobin 10-11). Last confinement [facility] November 14 to November 23, 2021 for [id number] cardiac arrest (PEA versus narrow complex tachycardia) status post CPR/intubation after transfer from [facility] ER. 2D echo during confinement showed EF of 45 to 49%. Patient Coreg switched to Toprol-XL due to low blood pressure. Patient Coumadin changed to Eliquis. Outpatient Zio patch recommended by director of housing and energy services. Patient seen on follow-up visit with [facility] director of housing and energy services 4 days ago. Patient noted nonpainful lump on left groin. Patient to continue Zio patch monitor until further recommendations from EPS as per documentation. Nonvascular left lower extremity ultrasound ordered for left groin lump. Patient noted cough symptoms productive of clear sputum 2 days ago. No fever, no chills. sick with pneumonia at home. Patient completed COVID-19 vaccination. 2 days ago patient had a syncopal event at the entryway of a local [facility] clinic for his outpatient ultrasound study. Patient remembers being lightheaded prior to event. No chest pain, no SOB, no witnessed seizures. Patient was out for about 10 seconds as per daughter. SBP 90s as per clinic note. 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 Occlusion of the greater saphenous vein distal to this level. Surgical consultation is suggested. Patient had been dealing with dizziness noted on getting up too quick since CABG surgery last July 2021 as per patient. Patient advised to get up from bed very slowly. Patient subsequently transported to [facility] ER for evaluation as per cardiology communication with outpatient provider. Patient actually hypertensive during monitoring at the ER. Outpatient Vascular Surgery consultation for evaluation of abnormal leg ultrasound as per specialist recommendation as per ER provider note. Yesterday afternoon at the yard, patient had another syncopal event preceded by lightheadedness witnessed by his daughter. No headache, no chest pain, no SOB, no witnessed seizures. Patient was out for about 10 seconds. SBP 70 to 90s at home. Patient brought to the ER by EMS. 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 Admission Exam Per Admitting Provider GENERAL: Comfortable, pleasant, morbidly obese, no respiratory distress SKIN: Pallor, warm HEENT: Pale palpebral conjunctivae, no ptosis, moist buccal mucosa NECK : Supple, short neck, no tenderness CHEST : Decreased breath sounds , no tenderness HEART : Bradycardic, no obvious murmurs ABDOMEN: Some distention, nontender EXTREMITIES : Minimal LE swelling, no LE tenderness, no other conspicuous deformities noted NEUROLOGIC : Coherent, no facial asymmetry, no other gross focality Principal Diagnosis Recurrent syncope, likely orthostatic hypotension Bradycardia Hypothyroidism Nonpainful lump on left groin Viral URTI Discharge Exam GENERAL: Alert and oriented x3. NAD, on RA. HEENT: No pallor, no icterus. Pupils equal, round and reactive to light. Oral mucosa moist. NECK: No JVD, no neck masses. HEART: S1 and S2 heard. bradycardia. No murmur, no gallop. RESPIRATORY SYSTEM: Normal AP diameter. No accessory muscle use. bibasal wheezing, occasional b/b crackles. ABDOMEN: Soft, bowel sounds present, nontender, no distention. CENTRAL NERVOUS SYSTEM: No facial droop. Speech is clear. Obeys simple commands. Moves extremities. EXTREMITIES: N1+ BLE edema, no erythema seen. Medial left thigh lump noted. Discharge Data Allergies Allergy/AdvReac Type Severity Reaction Status Date / Time No Known Allergies Allergy Verified 12/08/21 22:30 Consultations 12/08/21 23:09 ED Decision to Admit Stat 12/09/21 02:16 Consult Cardiology Routine Hospital Course (1) Syncope: 71-year-old male with PMH of HFrEF [2021 TTE with EF 45 to 49%], CAD s/p CABG and stent, paroxysmal A flutter s/p cardioversion & on eliquis, history of cardiac arrest [recent], HTN, HLD, COPD as per records, pulmonary HTN, DM2 on insulin], CKD [baseline creatinine 1.6-1.7], orthostatic hypotension and chronic anemia [baseline hemoglobin 10-11] presented to our ED 12/09 with complaint of recurrent syncopal event preceded by lightheadedness. He is being managed for the following: #. Extensive cardiac history #. Recent cardiac arrest #. Recurrent syncope #. Orthostatic hypotension #. Bradycardia November 14-November 23, 2021 at [facility] for [id number] cardiac arrest (PEA vs Narrow Complex Tachy) s/p CPR/intubation after transfer from [facility] ER. Recently Coreg switched to Toprol XL (d/t low BP) and Coumadin changed to Eliquis. Was discharged on OP zio patch after last admission. Patient had been dealing with dizziness noted on getting up too quick since CABG surgery last July 2021 as per patient. Patient advised to get up from bed very slowly. Pt reports syncopal events lasting 5-10 seconds 2 days ago SIDE [employer] and on the day of arrival, both triggered when patient didn't wait it out (pt advised to change position slowly) when standing up from sitting position and fell immediately as he started to walk without giving it time as he usually does. Lightheaded prior to the events, no chest pain/sob/witnessed seizures. BP around both the events low to low normal per records. BP at presentation to ER was elevated. Ortho vitals at presentation positive. EKG at presentation shaheen (56 bpm) w/ occasional PVCs. Trop minimally elevated and flat trended, likely chronic. Monitor/replete electrolytes Syncope 2/2 orthostatic hypotension vs arrhythmia vs other . Continue to change position slowly giving body time to react to position changes, pt recounselled. Cardio on board, c/w metoprolol, torsemide and amiodarone, continue to hold entresto. Appreciate recs. Pt will need f/u with PCP and Cardio as OP within a week time and maintain BP measurement twice a day to take to PCP and Cardio as OP. #. Hypothyroidism TSH 6.9 at presentation w/ fT4 0.94 Repeat TFT in 3 months as OP f/u PCP #. 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 Occlusion of the greater saphenous vein distal to this level. Surgical consultation is suggested. Outpatient Vascular Surgery consultation for evaluation of abnormal leg ultrasound as per specialist recommendation as per ER provider note. #. Likely viral URTI #. Human Metapneumovirus infection #. Mild COPD exacerbation Pt reports cough w/ clear sputum x 2 days SIDE [employer], a/w nasal stuffiness. No fever/chills. sick w/ pneumonia Pt s/p complete vaccines against COVID-19 Complains of cough w/ clear sputum x 2 days SIDE [employer] supportive Mx. Mucinex, tessalon pearle. Flonase for congestion. Pt significantly improved during the day with regard to dry to wet cough (clear sputum occasionally) and breathing. Will give 5 days trial of steroid. Iv here and then DC on PO steroid. #. Other Chronic medical condition: HFrEF (2021 TTE 45-49%), Paroxysmal A flutter s/p cardioversion on Eliquis, HTN, HLD, Pul HTN, DM2 (October 2021 A1C 7.6), Chronic anemia, [employer] Continue with/resume home meds as and when appropriate. DVT prophylaxis. Eliquis Full code Patient daughter Ms. Molly Lorenzo, contact #[phone] was given phone call and went over discharge instruction. Patient discharged home with following instruction at the point of discharge: Follow-up with your primary care physician within a week time. Follow-up with your cardiology in a week time. Get your blood work CBC and CMP done in a week time and have the results forwarded to your PCP. For your viral URTI, you are being discharged on some cough medication to help you with cough, if your color of sputum changes from clear to different color then contact your primary care physician or emergency for further evaluation/management as discussed at bedside. Use albuterol nebulization for shortness of breath. You are being discharged on 4 more days of steroid for mild wheezing of your lungs. You got one dose of steroid while in hospital. Change your positions slowly from sleeping to sitting and sitting to standing position to avoid lightheadedness/dizziness and fall. Your heart medication Entresto is being held upon discharge, follow-up with your cardiology for further evaluation/dose adjustment as an outpatient. Your thyroid function, TSH was elevated at 6.9, follow-up with primary care physician for further discussion/management on this. You will likely need repeat thyroid function test in 3 months as outpatient. For your nonpainful lump on left groin, establish and maintain follow-up with vascular surgery as an outpatient. Take your medications as prescribed. Total Time Total Time Spent Total Time Spent (In Minutes): 45 Discharge Plan Discharge Items Patient Disposition: Home - Self-Care Reason For Visit: REC SYNCOPE, TROP ELEV Discharge Diagnosis: Recurrent syncope, likely orthostatic hypotension Bradycardia Hypothyroidism Nonpainful lump on left groin Viral URTI Activity: As commented below Activity Comment: change position slowly as advised at bedside. Non-emergency contact: Primary Care Provider Call non-emergency contact if: you have any medication questions, your symptoms worsen and your temperature is above 101 Follow-up/Referrals: John Garsia MD [Primary Care Provider] - (Date & Time 12/13/2021 11:20 AM Provider John Garsia MD Department Family Medicine [facility] ) Molly Cantu PA-C [Physician Signals Intelligence Analysis Manager] - (Date & Time 12/17/2021 8:30 AM Provider Molly Cantu PA-C Department Cardiology, [facility] ) Diet: Carb Consistent or DM2 and Heart Healthy Addtl Attending Provider Instructions: Follow-up with your primary care physician within a week time. Follow-up with your cardiology in a week time. Get your blood work CBC and CMP done in a week time and have the results forwarded to your PCP. For your viral URTI, you are being discharged on some cough medication to help you with cough, if your color of sputum changes from clear to different color then contact your primary care physician or emergency for further evaluation/management as discussed at bedside. Use albuterol nebulization for shortness of breath. You are being discharged on 4 more days of steroid for mild wheezing of your lungs. You got one dose of steroid while in hospital. Change your positions slowly from sleeping to sitting and sitting to standing position to avoid lightheadedness/dizziness and fall. Your heart medication Entresto is being held upon discharge, follow-up with your cardiology for further evaluation/dose adjustment as an outpatient. Your thyroid function, TSH was elevated at 6.9, follow-up with primary care physician for further discussion/management on this. You will likely need repeat thyroid function test in 3 months as outpatient. For your nonpainful lump on left groin, establish and maintain follow-up with vascular surgery as an outpatient. Take your medications as prescribed. Pending Studies at Discharge: No Stand-Alone Forms: My [facility] [employer], Smoking Cessation Medications and DC Order Prescriptions: New Cepacol Sore Throat (robert-men) 15-3.6 mg Lozenge 1 aspen buccal TID PRN (Reason: sore throat) Qty: 16 RF: 0 fluticasone propionate 50 mcg/actuation Bertram,Suspension 2 spray NA DAILY PRN (Reason: nasal congestion) 7 Days Qty: 16 RF: 0 benzonatate 100 mg Capsule 100 mg PO TID 7 Days Qty: 21 RF: 0 guaifenesin [Mucinex] 600 mg Tablet Extended Release 12hr 600 mg PO Q12 7 Days Qty: 14 RF: 0 prednisone 20 mg tablet 40 mg PO DAILY 4 Days Qty: 8 RF: 0 Continued atorvastatin [Lipitor] 80 mg tablet 80 mg PO QAM RF: 0 Lantus U-100 Insulin 100 unit/mL solution 44 unit subcut HS RF: 0 nitroglycerin [Nitrostat] 0.4 mg Tablet, Sublingual 0.4 mg sublingual UD PRN (Reason: Chest Pain) RF: 0 cholecalciferol (vitamin D3) [Vitamin D3] 2,000 unit Tablet 2,000 unit PO DAILY RF: 0 Eliquis 5 mg Tablet 5 mg PO AMHS RF: 0 torsemide 20 mg tablet 20 mg PO QAM RF: 0 amiodarone 200 mg tablet 100 mg PO QAM RF: 0 famotidine 20 mg tablet 20 mg PO DAILY RF: 0 tamsulosin 0.4 mg capsule 0.4 mg PO QAM RF: 0 metoprolol succinate 25 mg tablet extended release 24 hr 12.5 mg PO QAM RF: 0 aspirin [Aspirin Low Dose] 81 mg Tablet,Delayed Release (Dr/Ec) 81 mg PO DAILY RF: 0 cyanocobalamin (vitamin B-12) [Vitamin B-12] 500 mcg Tablet 500 mcg PO DAILY RF: 0 ferrous sulfate 325 mg (65 mg iron) Tablet 325 mg PO DAILY RF: 0 docusate sodium 100 mg Capsule 100 mg PO BID RF: 0 folic acid 800 mcg Tablet 0.8 mg PO DAILY RF: 0 ezetimibe 10 mg tablet 10 mg PO DAILY RF: 0 senna 8.6 mg Capsule 8.6 mg PO DAILY PRN (Reason: Constipation) RF: 0 albuterol sulfate 0.63 mg/3 mL Solution For Nebulization 0.63 mg INHALATION Q6 PRN (Reason: Wheezing) RF: 0 Discontinued Entresto 49-51 mg tablet 1 tab PO AMHS RF: 0 Discharge Orders: Discharge Order (Routine); Ordered 12/10/21 Ordered By: Palma Lui Admission Data Admit Date/Time: 12/09/21 00:54 Attending Provider: Palma Lui Admit Provider: Juan Andres Primary Care Provider: John Garsia Other Providers: Juan Andres ; Sid Arceo
--- NOTE | 2021-12-10 15:41 | Electrocardiogram Report ---
Test Reason : Blood Pressure : / mmHG Vent. Rate : 064 BPM Atrial Rate : 375 BPM P-R Int : 000 ms QRS Dur : 128 ms QT Int : 434 ms P-R-T Axes : 000 038 115 degrees QTc Int : 447 ms Normal sinus rhythm with 1st degree A-V block Left bundle branch block Cannot rule out Anteroseptal infarct , age undetermined Abnormal ECG When compared with ECG of 08-DEC-2021 21:37, No significant change Confirmed by Devan Juarez ([id number]) on 12/10/2021 3:41:35 PM Referred By: Sid Arceo Confirmed By:Devan Juarez
--- NOTE | 2021-12-10 16:16 | Communication Note ---
Date of Service: December 10, 2021 Respiratory panel positive for human metapneumovirus. Stable for discharge with supportive care plan as outline in hospitalist notes. Holding entresto at discharge.
== END 2021-12-10 17:00 | disposition home or self-care (01) ==
LOC: ED 21:28 → 2S 21:28